=== PATIENT | male | born 1955 | race Caucasian/White ===

== ENCOUNTER 2017-03-31 13:10 | Inpatient (IN) | payer OTHER, MEDICARE ==
[~2017-03-31] VITALS: Ht 180.3 cm; Wt 136.1 kg
[~2017-03-31 13:10] MED LIST: ALPRAZOLAM0.5 M4 PO; AMOXICILLIN500 M3 PO; ASPIRIN81 M4 PO; BACTRIM DS TAB1 EACH PO; BUTALB-ACETAMI1 EACH PO; CABERGOLINE0.5 M2 PO; CARVEDILOL25 M1 PO; DICLOFENAC SODI75 M2 PO; ESCITALOPRAM OX10 MG PO; FUROSEMIDE20 M1 PO; KLOR-CON 1010 ME1 PO; LEVOTHYROXINE150 MCG PO; LIDODERM1 EACH TOP; LOSARTAN POTAS100 M1 PO; OMEPRAZOLE20 M2 PO; PERCOCET 5-3251 EACH PO; SUCRALFATE1 GM/10 M1 PO; VITAMIN D31000 UNI2 PO
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
--- NOTE | 2017-03-31 13:38 | NUR ---
PT MEDICATED PER EMAR WITH GOOD EFFECT. PT NOW ALERT AND ABLE TO COMMUNICATE. REPORTS HE DID TRY TO COMMIT SUICIDE THIS MORNING BY OVERDOSING ON 56 PILLS OF XANAX AND 20 PILLS OF LOSARTAN. PT DENIES ETOH CONSUMPTION. TOOK PILLS AROUND 1000 THIS MORNING.
--- NOTE | 2017-03-31 13:49 | NUR ---
PT TITRATED TO 5L 02 PER RESP VIA NC SATS 93-95%
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
[2017-03-31 14:13] LABS: ABSOLUTE BASOPHIL COUNT 0 /CUMM (0.0-0.2); ABSOLUTE EOSINOPHIL COUNT 0.2 /CUMM (0.0-0.7); ABSOLUTE LYMPH COUNT 1.5 /CUMM (1.2-3.4); ABSOLUTE MONOCYTE COUNT 0.7 /CUMM (0.10-0.60); BASOPHIL % 0.3 % (0.0-2.0); EOSINOPHIL % 3.6 % (0-5); GRANULOCYTE % 61.5 % (42.2-75.2); HEMATOCRIT 34.2 % (42-52); MEAN CORPUSCULAR HGB 28.6 PG (27.0-31.0); MEAN CORPUSCULAR HGB CONC 33.7 G/DL (33.0-37.0); MEAN CORPUSCULAR VOLUME 84.7 FL (80.0-94.0); PLATELET COUNT 203 /CUMM (130-400); RBC DISTRIBUTION WIDTH 19.4 % (11.5-14.5); RED BLOOD CELL CT 4.04 /CUMM (4.70-6.10); WHITE BLOOD CELL COUNT 6.4 /CUMM (4.8-10.8)
--- NOTE | 2017-03-31 14:20 | NUR ---
PORT CXR AT BEDSIDE.
--- NOTE | 2017-03-31 14:23 | NUR ---
PASTORAL CARE WITH SISTER AT BEDSIDE.
--- NOTE | 2017-03-31 14:24 | NUR ---
UNABLE TO OBTAIN MED LIST AT THIS TIME DUE TO PTS CONDITION.
--- NOTE | 2017-03-31 14:47 | NUR ---
SISTER ANTONIO CAN BE REACHED AT [phone]
--- NOTE | 2017-03-31 15:18 | RADIOLOGY REPORT ---
EXAMINATION: XR PORTABLE CHEST CLINICAL INFORMATION: Overdose with hypoxia. Presumptive diagnosis of aspiration. COMPARISON: Chest x-ray dated 11/03/[address] scan of the chest dated 10/02/2012. TECHNIQUE: Portable AP semierect view of the chest was obtained. FINDINGS: Evaluation is limited by motion artifact. The cardiomediastinal silhouette is enlarged, accentuated by the AP technique and patient positioning. Low lung volumes are seen with central vascular congestion. No overt edema. Diffuse haziness over the left chest is most likely related to technical factors. IMPRESSION: Limited assessment due to motion artifact, low lung volumes and patient rotation. Suspect low lung volumes with bibasilar subsegmental atelectasis.
--- NOTE | 2017-03-31 16:28 | NUR ---
PT ADMITTED UNDER ICU SERVICES. PENDING BED ASSIGNEMENT.
[2017-03-31] MEDS ORDERED: VENTOLIN HFA18 GM INH (17:03)
--- NOTE | 2017-03-31 17:08 | History & Physical ---
GEORGI PEACOCK,[facility] 03/31/17 5458: General Information and HPI MD Statement: I have seen and personally examined EMIL JOHN and documented this H&P. The patient is a 61 year old M who presented with a patient stated chief complaint of [altered mental status and difficulty breathing]. Source of Information: family, old records History of Present Illness: Patient is a 61-year-old gentleman with PMH significant for depression, anxiety, CHF (stage I diastolic dysfunction, EF 60%), pituitary tumor, viral myocarditis, hypothyroidism, hypertension, chronic venous insufficiency, recent admission to [facility] with upper GI bleed, who is BIBA after a suicidal attempt. History is obtained from the patient's mother and sister on the phone as he was somnolent and was unable to provide history. Patient was brought in to the hospital after ingesting about 60 tabs of Xanax and 20 tabs of Losartan. He had an argue with his mother since the night before and have been stating several times that he wants to end his life. According to the family, patient has a life long history of depression, not currently taking any medication for it; since his last discharge in October 2016 his symptoms have worsened and he frequently expresses that he wants to end his life. Patient is not working due to disability (since a diagnosis of pituitary tumor>25 years ago), lives with his mother and has been having financial difficulties, to the point that they most likely will lose their house. His argument with his mother was for the same reason after which he constantly told his mother that he is going to kill himself. Around noon time today he shouted from his bedroom that he has ingested the medications. His mother tried to convince him several times to come to the ED but he refused until he started to become short of breath with altered mentation. EMS brought the patient in the ED, he was given Romazicon after which he became more alert and reported taking Xanax 60 pills and Losartan 20 pills, also reported that he still considers suicide. Per the family, patient is not currently taking any medication for his depression; he only takes Xanax, Losartan, Cabergoline and Levothyroxine. He does not take Escitalopram, Furosemide, Coreg, and aspirin per the family. Aspirin was stopped since the previous admission due to lower GI bleed. Of note, his mother reported that the patient has been reporting black stools since a day prior ro admission as well, also reported vomiting and diarrhea for about a day prior to that. Did not mention any chest pain, palpitation but apparently has been dizzy on ambulation and weak for the most part. His mother also reports he has chronic coughs with sputum production, but denies recent fever, chills. Of note patient suffers from severe migraine headaches. patient smokes 0.5 pack/day , for 45 years. His family does not know if he takes illicit drugs or not. However sister admitted they suspected he is using Cocaine. Allergies/Medications Allergies: Coded Allergies: sulfamethoxazole (From BACTRIM) (Severe, RASH 11/03/16) trimethoprim (From BACTRIM) (Severe, RASH 11/03/16) codeine (Intermediate, VOMITING, FACE NUMBNESS 10/17/16) Home Med list Albuterol Sulfate (Ventolin Hfa) 90 MCG HFA.AER.AD 2 PUF INH AD PRN RESPIRATORY (Reported) Alprazolam 0.5 MG TABLET 1 TAB PO BIDP PRN ANXIETY (Reported) Aspirin (Aspirin*) 81 MG TAB.CHEW 1 TAB PO DAILY HEART HEALTH (Reported) Carvedilol 25 MG TABLET 1 TAB PO BID HEART (Reported) Cholecalciferol (Vitamin D3) 1,000 UNIT TABLET 1 TAB PO DAILY SUPPLEMENT ( Reported) Escitalopram Oxalate 10 MG TABLET 1 TAB PO DAILY DEPRESSION (Reported) Furosemide 20 MG TABLET 1 TAB PO DAILY WATER PILL (Reported) Levothyroxine Sodium 150 MCG TABLET 1 TAB PO DAILY AC THYROID (Reported) Losartan Potassium 100 MG TABLET 1 TAB PO DAILY HEART (Reported) Past History Travel History Traveled to [place] past 21 day No Medical History Neurological: migraine, multiple sclerosis EENT: NONE Cardiovascular: CHF, chronic venous insuff, hypertension, myocardial infarction, VIRAL PERICARDITIS Respiratory: NONE Gastrointestinal: NONE Hepatic: NONE Renal: borderline GFR Musculoskeletal: degen joint disease, falls, spinal stenosis Psychiatric: anxiety, insomnia, mood disorder Endocrine: hypothyroidism, obesity, vitamin D deficiency, pituitary tumor Blood Disorders: NONE Cancer(s): pituitary tumor- txd with Cabergoline; hx skull fibromas 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 MOTHER (MS). Age 84. SISTER (MS). Psychosocial History Who Do You Live With? parent (mom) Services at Home: None Primary Language: Zambian Living Will? no Power of Concrete Pump Operator/HCP? no Functional Ability ADLs Independent: dressing, eating, toileting, bathing. Ambulation: independent IADLs Independent: shopping, housework, finances, food prep, telephone, transportation , medication admin. Review of Systems Review of Systems Constitutional: Reports: see HPI. Exam & Diagnostic Data Last 24 Hrs of Vital Signs/I&O Vital Signs Date Time Temp Pulse Resp B/P B/P Pulse O2 O2 Flow FiO2 Mean Ox Delivery Rate 03/31 1805 95.8 56 20 120/62 96 Nasal 5.0L Cannula 05/06 1734 95.9 58 20 128/76 93 Nasal 5.0L Cannula 05/06 1632 96.8 56 20 131/74 94 Nasal 5.0L Cannula 05/06 1453 95.0 55 16 124/64 91 Nasal 5.0L Cannula 05/06 1443 58 16 125/64 92 Nasal 5.0L Cannula 05/06 1433 60 16 128/67 92 Nasal 5.0L Cannula 05/06 1423 95.0 59 16 130/68 92 Nasal 5.0L Cannula 05/06 1413 62 16 130/64 92 Nasal 5.0L Cannula 05/06 1403 62 16 124/62 93 Nasal 5.0L Cannula 05/06 1400 96 Non 100% ReBreather 05/06 1353 61 16 132/66 93 Nasal 5.0L Cannula 05/06 1348 59 16 144/65 95 Nasal 5.0L Cannula 05/06 1337 62 18 139/65 96 Non 100% ReBreather 05/06 1333 60 20 107/63 96 Non 100% ReBreather 05/06 1324 96.4 59 12 134/63 94 Non 100% ReBreather 05/06 1314 59 12 107/61 96 Non 10L ReBreather Intake & Output / 1600 05/06 0800 05/06 0000 Intake Total 1999 Output Total Balance 2000 Intake, IV 2000 Patient 131.542 kg Weight Physical Exam General Appearance Mild Distress, not alert, not oriented Skin venous ulcer stasis ulcer on the lower legs most prominent on the left side Skin Temp/Moisture Exam: Warm/Dry Sepsis Skin Exam (color): Normal for Ethnicity HEENT Atraumatic, Mucous Membr. moist/pink, pale conjunctiva on both sides Neck Supple, No JVD Cardiovascular Regular Rate, Normal S1, Normal S2, No Murmurs Lungs diffuse rhonchi and coarse crackles on both sides Abdomen Normal Bowel Sounds, Soft, No Tenderness Neurological Normal Speech, Normal Tone Extremities 3+ pitting edema on the left lower extremity, also there is hyperpigmentations and venous stasis skin changes on the left lower leg. Vascular Normal Pulses, Pulses Symmetrical Last 24 Hrs of Labs/[place]: Laboratory Tests 03/31/17 1330: Anion Gap 10, Estimated GFR 57 L, BUN/Creatinine Ratio 16.2, Glucose 107 H, Calcium 9.7, Total Bilirubin 0.5, AST 20, ALT 39, Alkaline Phosphatase 73, Troponin I < 0.01, Total Protein 6.8, Albumin 3.6, Globulin 3.2, Albumin/ Globulin Ratio 1.1, CBC w Diff NO MAN DIFF REQ, RBC 4.04 L, MCV 84.7, MCH 28.6, RDW 19.4 H, MPV 8.0, Gran % 61.5, Lymphocytes % 23.5, Monocytes % 11.1 H, Eosinophils % 3.6, Basophils % 0.3, Absolute Granulocytes 4.0, Absolute Lymphocytes 1.5, Absolute Monocytes 0.7 H, Absolute Eosinophils 0.2, Absolute Basophils 0, PUBS MCHC 33.7, Salicylates < 1.0, Acetaminophen < 10.0 L, Serum Alcohol < 10.0 03/31/17 1325: Urine Opiates Screen < 100.00, Methadone Screen < 40, Barbiturate Screen 745 H, Ur Phencyclidine Scrn < 6.00, Amphetamines Screen < 100, U Benzodiazepines Scrn > 800 H, Urine Cocaine Screen > 1000 H, Urine Cannabis Screen < 5.00, Urine Color YEL, Urine Clarity CLEAR, Urine pH 6.0, Ur Specific [place] 1.020, Urine Protein NEG, Urine Ketones NEG, Urine Nitrite NEG, Urine Bilirubin NEG, Urine Urobilinogen 0.2, Ur Leukocyte Esterase NEG, Ur Microscopic SEDIMENT EXAMINED, Urine RBC 1-3, Urine WBC RARE, Ur Epithelial Cells RARE, Urine Hemoglobin TRACE- INTACT H, Urine Glucose NEG Microbiology 03/31 1325 URINE ROUT: Urine Culture - RECD Assessment/Plan Assessment: Patient is a 61 year old male with PMH significant for depression, anxiety, CHF (stage I diastolic dysfunction, EF 60%), pituitary tumor, viral myocarditis, hypothyroidism, hypertension, chronic venous insufficiency, recent admission to [facility] with upper GI bleed, who is BIBA after a suicidal attempt and overdose with Xanax and losartan. Utox was positive for Benzo, Barbiturates, Cocaine. Poison control was also contacted for recommendations. 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 2-No evidence of hypoglycemia. Serum glucose: 107 3-Acute hypoxic respiratory failure: ABG showing hypoxemia. Initially required nonrebreather mask, currently on 4L per NC 4-Hypothermia:Patient was hypothermic to 95.0 on arrival, used blankets that increased Temp to 97.4 * Monitor airway and SO2, O2 suppl to keep SO2>92% * Capnography if evidence of hyperventilation * Consider intubation if worsening hypoxemia * Continuous cardiac monitoring * Monitor for symptoms of withdrawal: tremors, anxiety, perceptual disturbances, dysphoria, psychosis, and seizures. Treat withdrawal with Diazepam. * Frequent neurochecks * Fingersticks for risk of hypoglycemia Losartan overdose BP 107/61 on admission, currently elevated to systolic 120s-150s * Protect th airway, aspiration precautions, watch for signs of angioedema in ARB overdose * monitor BP for hypotension * watch for hyperkalemia * watch for acute renal function * continue IV fluid (NS) at 75 cc/hour * repeat BEP in am Suicidal ideation and suicidal attempt History of depression/anxiety/polysubstance abuse Utox (+) for cocaine, barbiturates and Benzodiazepines * not on medication (per family has not been taking escitalopram) * recent worsening of symptoms precipitated by financial problems * does not follow with psych * has active suicidal ideation * will need 1:1 sitter and psych eval in am History of GI bleed and anemia Was admitted at [facility] in Dec with GIB Reported dark stools a day before admission H/H shows anemia, stable compared to baseline * will monitor CBC * Will Guaiac stool * IV protonix * Add Iron studies and VitB12, folate to lab work History of heart failure and HTN Last Echo on 10/17/[address] Hassan: Normal left ventricular wall thickness and normal LV EF at > 60%. Stage 1 diastolic dysfunction. Mild left atrial dilatation. Trace mitral regurgitation. Of note, patient sees Dr. Hassan outpatient. On this admission: EKG unremarkable and troponin negative x0.01, no report of chest pain. * consider restarting furosemide (prescribed but the patient is not taking it according to the mother) * BP borderline low after ingestion of losartan * consider restarting Losartan and Carvedilol if BP increases * consider cardiology consult Left Lower extremity edema Pitting edema with chronic venous stasis skin changes present Patient has sedentary life style * doppler US of LE to rule out DVT Chronic cough with history of COPD Acute hypoxemic respiratory failure with significant coughing with large amount of phlegm, coarse crackles and rhonchi in the exam. ABG: Hypoxemia. * will suction the airway, monitor SO2 with pulse oxymetry * Consider Chest CT scan to better evaluate lung parenchyma * TRC/Nebs * Consider antibiotics if spikes fever * Sputum culture * Blood culture History of pituitary tumor & hypothyroidism * Continue Cabergoline * TFT * continue levothyroxine at 0.15 mg daily * Consider Endo consult Smoking * Nicotine patch due to smoking NPO due to altered mental status DVT px with Heparin SC FC As Ranked By This Provider Problem List: 1. Depression with suicidal ideation 2. Overdose of benzodiazepine Qualifiers Encounter type: initial encounter Injury intent: intentional self-harm Qualified Code: T42.4X2A - Poisoning by benzodiazepines, intentional self-harm, initial encounter 3. Overdose of drug Qualifiers Encounter type: initial encounter Injury intent: intentional self-harm Qualified Code: T50.902A - Poisoning by unspecified drugs, medicaments and biological substances, intentional self-harm, initial encounter 4. Anemia 5. Melena 6. GI bleed 7. Venous stasis ulcer 8. Hypertension 9. Hypothyroid 10. CHF (congestive heart failure) 11. SUZI (acute kidney injury) Core Measures/Miscellaneous Acute Coronary Syndrome ACS Diagnosis: No Cerebrovascular Accident CVA/TIA Diagnosis: No Congestive Heart Failure CHF Diagnosis: No Venous Thromboembolism VTE Risk Factors: Acute medical illness, Age > 40 No [facility] VTE prophylaxis d/t: No contraindications No VTE Pharm Prophylaxis d/t: VTE low risk, No contraindications VTE Diagnosis: No VTE Type: NONE VTE Confirmed by (Test): NONE Severe Sepsis Severe Sepsis Present: No Septic Shock Septic Shock Present: No Miscellaneous Documentation Attending Case Discussed With: RUSTY ALLEN MD Primary Care Physician: DANIEL AGUILERA MD Patient sees these Specialists Cardiology: Dr. Hassan Level of Patient Care: Critical Care ([facility]) DELMER ZAPATA 03/31/17 1834: Resident Review Statement Resident Statement: discussed with family Other Findings: Patient is a 60-year-old male with past medical history of CHF(stage I diastolic dysfunction, EF 60%), pituitary tumor, viral myocarditis, hypothyroidism, hypertension, chronic venous insufficiency, upper GI bleed was brought by EMS after the patient overdosed himself xanax and losartan. Per family, patient was involved in an earlier argument with her mother this morning. At around noon, the mother noticed that patient was very unresponsive in his bedroom and he had overdosed him self on 30 pills of xanax and losartan. Per family patient has been very depressed recently and felt that he has had enough of life. In ER, patient was given one dose of fumazenil after which he became a little responsive to sternal rub. He was following commands in ER like squeezing fingers, wiggling toes. He had a sitter beside him in the room and was coughing up on secretions. Patient was hypothermic in ER 95.8 rectal temp, saturating 96% on 5 L NC, RR 20, HR 56-61. CXR was Limited assessment due to motion artifact, low lung volumes and patient rotation. Suspect low lung volumes with bibasilar subsegmental atelectasis. Assessment and plan Poison control was contacted at [phone], they recommend to hold off on further fumazenil as he could have ingested multiple medications and there could be a possibility of medication interaction with it. They recommend to monitor the patient for hypotension, tachycardia, hypothermia, asymptomatic hypoglycemia and angioedema. Will provide supportive care to the patient at this time with NS @ 75 cc/hr to prevent dehydration and warm blankets for hypothermia. If hypothermia is not controlled, will proceed with bearhugger. ABG ordered at 4.55pm is still pending. Will follow up. Will repeat ICU bundle and CBC this evening ( 7 pm) and in am. DVT ppx SC heprin Patient came after a suicide attempt, he will be kept Full code. RUSTY ALLEN MD 03/31/172004: Attending MD Review Statement Attending Statement Attending MD Statement: examined this patient, discuss w/resident/PA/MEETING/EVENT PLANNER, agreed w/resident/PA/MEETING/EVENT PLANNER, reviewed EMR data (avail) Attending Assessment/Plan: 61M PMH depression, anxiety, CHF (stage I diastolic dysfunction, EF 60%), pituitary tumor, viral myocarditis, hypothyroidism, hypertension, chronic venous insufficiency admitted with intentional suicide attempt with Xanax overdose. Patient took 60 pills, unknown dose, with intent for self-harm. He arrives somnolent. Given Flumazenil in ED and woke up, but fell back asleep some time later. Currently somnolent but arousable. Hemodynamically stable and protecting airway. No further history can be obtained due to somnolence. 1. Benzodiazepine overdose 2. Suicide attempt 3. Somnolence 4. Hypothermia Plan - Admit to ICU - Poison control contat, will follow recommendations - Blankets and possible bear-hugger for hypothermia - Monitor BP, respirations, HR - If evidence of respiratory collapse, will require intubation - Neuro checks - Psychiatry consult - Monitor for eventual signs of benzo withdrawal - DVT PPx - Elevate head of bed
--- NOTE | 2017-03-31 17:11 | NUR ---
MONITORING FOR TACHYCARDIA, HYPOTENSION AND HYPOGLYCEMIA PER POISON CONTROL.
--- NOTE | 2017-03-31 17:41 | NUR ---
IV NS INFUSING.
--- NOTE | 2017-03-31 18:54 | NUR ---
LABS OBTAINED AND SENT.
--- NOTE | 2017-03-31 18:56 | NUR ---
PT TO ROOM 109-01
[2017-03-31 18:59] LABS: ABSOLUTE BASOPHIL COUNT 0 /CUMM (0.0-0.2); ABSOLUTE EOSINOPHIL COUNT 0.2 /CUMM (0.0-0.7); ABSOLUTE GRANULOCYTE CT 6.3 /CUMM (1.4-6.5); ABSOLUTE LYMPH COUNT 1.1 /CUMM (1.2-3.4); ABSOLUTE MONOCYTE COUNT 1.1 /CUMM (0.10-0.60); BASOPHIL % 0.3 % (0.0-2.0); EOSINOPHIL % 1.8 % (0-5); GRANULOCYTE % 72.9 % (42.2-75.2); HEMATOCRIT 33.8 % (42-52); MEAN CORPUSCULAR HGB 27.9 PG (27.0-31.0); MEAN CORPUSCULAR HGB CONC 32.6 G/DL (33.0-37.0); MEAN CORPUSCULAR VOLUME 85.6 FL (80.0-94.0); MEAN PLATELET VOLUME 7.6 FL (7.4-10.4); PLATELET COUNT 214 /CUMM (130-400); RBC DISTRIBUTION WIDTH 19.5 % (11.5-14.5); RED BLOOD CELL CT 3.95 /CUMM (4.70-6.10); WHITE BLOOD CELL COUNT 8.7 /CUMM (4.8-10.8)
--- NOTE | 2017-03-31 19:02 | NUR ---
PENDING CALL IN RETURN FROM ICU NURSE.
--- NOTE | 2017-03-31 20:10 | Admission Certification ---
Admission Certification Certification Statement - As attending physician, I certify that at the time of - admission, based on clinical presentation, severity of - symptoms, need for further diagnostic testing and - therapeutic interventions, and risk of adverse outcomes - without in-hospital treatment, in my clinical assessment, - this patient requires an acute hospital stay for a minimum - of two nights or longer. I have also considered psychsocial - factors such as support system, advanced age, financial - issues, cognitive issues, and failed out-patient treatments, - past re-admission history, safety of patient, and lack of - compliance as applicable. Specific rationale supporting this admission is: Intentional benzodiazepine overdose
--- NOTE | 2017-03-31 20:32 | NUR ---
REPORT GIVEN TO SOLDERER TORCH.
[2017-03-31 22:00] VITALS: BP 152/72
[2017-04-01] VITALS (10 sets, daily range): BP systolic 98–160; BP diastolic 50–83
--- NOTE | 2017-04-01 | NUR ---
PT RECEIVED FROM ER AT 2100, RESPONDS ONLY TO NOXIOUS STIMULI BY GROANING LOUDLY AND DEUTSCH. NASAL TRUMPET INSERTED BY RT SPUTUM C/S SENT.NASAL 02 AT 4L O2 SAT 92-96% DR SENIOR AWARE OF CONDITION, TEMP TO 97.8 AFTER APPLYING BLANKETS AND COVERING TOP OF HEAD. HAS MULTIBLE BROWN SPOTS ON BODY THROUGHOUT BODY NO OPEN AREAS SEEN. HAS EXCESSIVE UPPER AIRWAY CONGESTION DOES HAVE STRONG COUGH ABLE TO CLEAR OWN AIRWAY. SITTER AT BEDSIDE TO MAINTAIN SAFETY.
--- NOTE | 2017-04-01 04:00 | NUR ---
PT MORE AWAKE KNOWS WHERE HE IS C/O "FOAMING AT THE MOUTH" MOUTH CARE GIVEN. COMPLETE BED BATH GIVEN PT IS RESISTANT TO CARE BUT IS LETHARGIC AND QUICKLY FELL BACK TO SLEEP. DISCUSSED PO MEDS WITH DR SENIOR CHANGED TO IV.
[2017-04-01 05:08] LABS: ABSOLUTE BASOPHIL COUNT 0 /CUMM (0.0-0.2); ABSOLUTE EOSINOPHIL COUNT 0.1 /CUMM (0.0-0.7); ABSOLUTE GRANULOCYTE CT 6.8 /CUMM (1.4-6.5); ABSOLUTE LYMPH COUNT 1.3 /CUMM (1.2-3.4); BASOPHIL % 0.2 % (0.0-2.0); EOSINOPHIL % 1.5 % (0-5); GRANULOCYTE % 72.7 % (42.2-75.2); HEMATOCRIT 32.8 % (42-52); MEAN CORPUSCULAR HGB 28.5 PG (27.0-31.0); MEAN CORPUSCULAR HGB CONC 33.4 G/DL (33.0-37.0); MEAN CORPUSCULAR VOLUME 85.2 FL (80.0-94.0); MEAN PLATELET VOLUME 7.6 FL (7.4-10.4); PLATELET COUNT 193 /CUMM (130-400); RBC DISTRIBUTION WIDTH 19.4 % (11.5-14.5); RED BLOOD CELL CT 3.84 /CUMM (4.70-6.10); WHITE BLOOD CELL COUNT 9.3 /CUMM (4.8-10.8)
--- NOTE | 2017-04-01 08:34 | PN- Resident CRCU ---
FLOYD PEACOCK,[facility] 04/01/17 0834: Subjective HPI/CRCU Issues: Mr Fletcher was seen and examined this morning. He is resting comfortably in bed. Patient appears very tearful and upset during the time of our clinical encounter and offers a lot of remorse for his actions. He is alert and oriented nausea, vomiting. He denies any visual or auditory hallucinations. 24 Hour Events: No Events Reported Objective Vital Signs & I&O Last 8 Hrs of Vitals and I&O: Intake & Output 04/01 1600 Intake Total 750 Output Total 550 Balance 200 Intake, IV 600 Intake, Oral 150 Output, Urine 550 Exam General Appearance: well developed/nourished, no apparent distress, alert, awake Respiratory: normal breath sounds, chest non-tender, no respiratory distress Cardiovascular: regular rate/rhythm Gastrointestinal: normal bowel sounds, soft, non-tender, no organomegaly, distention Extremities: normal inspection, normal capillary refill, normal range of motion, no edema Cranial Nerves: normal hearing, normal speech, PERRL Current Medications: Current Medications Sig/Edy Start time Last Medication Dose Route Stop Time Status Admin Albuterol Sulfate 2 PUF BID PRN 03/31 2200 AC INH Heparin Sodium 5,000 UNIT Q8 03/31 2200 AC 04/01 (Porcine) SC 1416 Levothyroxine Sodium 75 MCG DAILY 04/01 1000 AC 04/01 IV 1140 Levothyroxine Sodium 0.15 MG DAILY AC 04/01 0700 CAN PO Nicotine 14 MG DAILY 04/01 1000 AC 04/01 TOP 1141 Sodium Chloride 1,000 ML Q13H 03/31 1730 AC 04/01 IV 0636 Impression/Plan Impression/Problem List Impression: Patient is a 61 year old male with PMH significant for depression, anxiety, CHF (stage I diastolic dysfunction, EF 60%), pituitary tumor, viral myocarditis, hypothyroidism, hypertension, chronic venous insufficiency, recent admission to [facility] with upper GI bleed, who is BIBA after a suicidal attempt and overdose with Xanax and losartan. Utox was positive for Benzo, Barbiturates, Cocaine. Poison control was also contacted for recommendations. Problem list and plan: Benzodiazepine poisoning * Continue to Monitor airway and SO2, O2 suppl to keep SO2>92% * Capnography if evidence of hyperventilation * Consider intubation if worsening hypoxemia * Continuous cardiac monitoring * Monitor for symptoms of withdrawal: tremors, anxiety, perceptual disturbances, dysphoria, psychosis, and seizures. * Frequent neurochecks * [facility] protocol for acute withdrawal. Losartan overdose BP 107/61 on admission, currently elevated to systolic 122/62 * Watch for signs of angioedema in ARB overdose * monitor BP for hypotension * watch for hyperkalemia, last K: 4.2. repeat in AM * watch for acute renal function Acute kidney injury * BUN/creatinine 24 and 2.1 respectively. * Continue IV hydration. * Repeat BEP in a.m. Suicidal ideation and suicidal attempt History of depression/anxiety/polysubstance abuse Utox (+) for cocaine, barbiturates and Benzodiazepines * not on medication (per family has not been taking escitalopram) * recent worsening of symptoms precipitated by financial problems * does not follow with psych * has active suicidal ideation * Continue 1:1 sitter * Psychiatry evaluation obtained. History of GI bleed and anemia Was admitted at [facility] in Dec with GIB Reported dark stools a day before admission H/H shows anemia, stable compared to baseline * will monitor CBC * Will Guaiac stool * IV protonix * Add Iron studies and VitB12, folate to lab work History of heart failure and HTN Last Echo on 10/17/[address] Hassan: Normal left ventricular wall thickness and normal LV EF at > 60%. Stage 1 diastolic dysfunction. Mild left atrial dilatation. Trace mitral regurgitation. Of note, patient sees Dr. Hassan outpatient. On this admission: EKG unremarkable and troponin negative x0.01, no report of chest pain. * consider restarting furosemide (prescribed but the patient is not taking it according to the mother) * consider cardiology consult Chronic cough with history of COPD * will suction the airway, monitor SO2 with pulse oxymetry * TRC/Nebs * Consider antibiotics if spikes fever, afebrile today. * Sputum culture * Blood culture History of pituitary tumor & hypothyroidism * TFT * continue levothyroxine at 0.75 mcg daily * Consider Endo consult * Confirm Home Meds in AM Smoking * Nicotine patch due to smoking Regular Diet. DVT px with Heparin SC FC Problem List: 1. Depression with suicidal ideation 2. Overdose of drug 3. Overdose of benzodiazepine Pain Ratin Tomorrow's Labs & Rationales: Icu Bundle Plan DVT/Prophylaxis: RUSTY Luna MD 04/01/17 1357: Attending MD Review Statement Attending Sign Off Attending Cosign Statement: I have: examined this patient, reviewed [facility] EMR data, discussd w/resident/PA/ ADMINISTRATIVE RESOURCES ASSOCIATE, agreed w/resident/PA/ADMINISTRATIVE RESOURCES ASSOCIATE. Other Findings: 61M PMH depression, anxiety, CHF (stage I diastolic dysfunction, EF 60%), pituitary tumor, viral myocarditis, hypothyroidism, hypertension, chronic venous insufficiency admitted with intentional suicide attempt with Xanax overdose. Patient took 60 pills, unknown dose, with intent for self-harm. He arrives somnolent. Given Flumazenil in ED and woke up, but fell back asleep some time later. Currently somnolent but arousable. Hemodynamically stable and protecting airway. No further history can be obtained due to somnolence. 1. Benzodiazepine overdose 2. Suicide attempt 3. Somnolence 4. Hypothermia Plan - May downgrade to general medicine floor - Poison control contat, will follow recommendations - Monitor BP, respirations, HR - If evidence of respiratory collapse, will require intubation - Neuro checks - Psychiatry consult - Monitor for eventual signs of benzo withdrawal - DVT PPx - Elevate head of bed
--- NOTE | 2017-04-01 09:03 | NUR ---
0630 LATE ENTRY. PT WOKE INITIALLY CONFUSED TO PLACE AND REASON FOR HOSPITALIZATION THEN SPONTANEOUSLY REMEMBERED WHY HE IS IN HOSPITAL, WEEPING ASKING WHY HE DIDN'T . VERY EMOTIONAL SAYING HE HAS NO REASON TO LIVE AND HES MAD AT HIS FAMILY FOR CALLING AMBULENCE. sTATES HE TOOK ENOUGH BP MEDICINE TO KILL HIMSELF AND IF AT FIRST YOU DONT SUCCEED, TRY AGAIN. NO AGGRESSIVE BEHAVIOR DISPLAYED IS COOPERATING WITH CARE (FOR THE MOMENT HE STATES) SITTER AT BEDSIDE DOES NOT ATTEMPT TO GET OOB OR PULL AT TUBINGS AT THIS TIME.
--- NOTE | 2017-04-01 10:22 | Cons- Psychiatry ---
Psychiatric Consult Date of Consult: 03/31/17 Reason for Consult: "xanax overdose" History of Present Illness: Pt was BIBA unresponsive after mother and sister called 911 in the setting of several statements pt made about killing himself during some interpersonal discord driven by worsening fiancial stressors. Pt now awake and alert though very drowsy. On interview, he noted that he lost his job five months ago. As the bill started to pill up and go unpaid, pt was increasingly hopeless about the situation. He notes that they have not been able to pay the mortgage, the electric bill (to be shut off ?today), and have not paid any of the credit cards in five months. He notes that he had been increasingly depressed but was not considering suicide. The thought that killing himself could be "a way out" of this situation came to him one day ago in the setting of worsening depression, conflict with family, and crack cocaine use. He took "a whole bottle of losartan and a whole bottle of xanax" with the intent to . Upon awakening and finding that he is not he said he was "very disappointed." He still currently wishes to be . In addition, he noted, "I want to try again; I want another chance to do it," referring to suicide once again. 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 In addition, the "secret shame" of smoking crack almost daily for the past 30 years has been weighing heavily on his mind. He smoked crack just prior to overdose. His mother relies on him for care and support as she has MS. Pt denies any manic , psychotic, or trauma-related sx. Denies hx of emotional, physical or sexual abuse. Noted supports as mother and sister only. Pt has been taking xanax almost daily for decades prescribed by primary care provider. Denies alcohol use. Smokes 1/2 ppd. + crack cocaine x 30yrs, denies other drugs, deneies IVDU. Pt was previously seen by Psychiatrist years ago. Was on depakote and xanax. Allergies: Coded Allergies: sulfamethoxazole (From BACTRIM) (Severe, RASH 11/03/16) trimethoprim (From BACTRIM) (Severe, RASH 11/03/16) codeine (Intermediate, VOMITING, FACE NUMBNESS 10/17/16) Current Medications: Current Medications Sig/Edy Start time Last Medication Dose Route Stop Time Status Admin Albuterol Sulfate 2 PUF BID PRN 03/31 2200 AC INH Flumazenil 0 .STK-MED ONE 03/31 1335 DC IV Flumazenil 0.25 MG ONCE ONE 03/31 1330 DC 03/31 IV 03/31 1331 1338 Heparin Sodium 5,000 UNIT Q8 03/31 2200 AC 04/01 (Porcine) SC 0635 Levothyroxine Sodium 75 MCG DAILY 04/01 1000 AC IV Levothyroxine Sodium 0.15 MG DAILY AC 04/01 0700 CAN PO Nicotine 14 MG DAILY 04/01 1000 AC TOP Patient Medication 1 UNIT ONE NR 03/31 1815 DC Teaching ED 03/31 1830 Sodium Chloride 1,000 ML Q13H 03/31 1730 AC 04/01 IV 0636 Past History Past Medical History Neurological: migraine, multiple sclerosis EENT: NONE Cardiovascular: CHF, chronic venous insuff, hypertension, myocardial infarction, VIRAL PERICARDITIS Respiratory: NONE Gastrointestinal: NONE Hepatic: NONE Renal: borderline GFR Musculoskeletal: degen joint disease, falls, spinal stenosis Psychiatric: anxiety, insomnia, mood disorder Endocrine: hypothyroidism, obesity, vitamin D deficiency, pituitary tumor Blood Disorders: NONE Cancer(s): pituitary tumor- txd with Cabergoline; hx skull fibromas CONVENTIONS RESERVATIONIST/Reproductive: NONE Past Surgical History Surgical History: BENIGN BREAST TUMOR REMOVAL B/L, PILONIDAL CYST REMOVAL, REMOVAL OF SKULL FIBROMAS VASC PROCEDURE LLE Psychosocial History Strengths/Capabilities: able to communicate Psychiatric Treatment History Psych Treatment Psychiatric Treatment Yes Inpatient Treatment No Outpatient Treatment Yes (years ago) Location of Treatment [place] Reason for Treatment depression, "I didn't feel right" Dates of Treatment years ago Response to Treatment good Diagnosis: Major Depressive Disorder R/O Substance-induced mood disorder Cocaine (crack) use disorder Nicotine Dependence Risk Factors: access to lethal means, chronic/serious med cond., high anxiety/ distress, substance abuse, isolate/no social support, poor impulse control, lack of outcome concern, male, limited support Substance Use/Abuse History Drug Use/Abuse Substances Used/Abused Yes Substance Used/Abused Crack Cocaine First Use 30 years ago Last Used last day How much used/taken 100-200$/d x30 years (pt worked extra jobs to support this) How often almost daily For how long 30 years Route of use INH Substance Abuse Treatment Substance Abuse Treatment Past Substance Abuse [place] No Assessment/Plan Mental Status Orientation: Person, Place, Situation, though extremely drowsy Affect: Anxious, Hopeless, Labile, Sad Speech: Loud, Mumbled Neuro-vegetative: Anhedonia, Appetite Increased, Concentration Poor, Energy Decreased, Helpless, Loss of Interest, Sleep Disturbance Mental Status Exam: Appears younger than stated age. Cooperative behavior, good, appropriate eye contact. Loud mumbled speech at times, nl rate, non-pressured, and nl prosody. + psychomotor agitation when awake but intermittently falling asleep. Mood I want to Affect very sad, hopeless, anxious, irritable, depressed, constricted, appropriate, slightly liable. Linear and goal directed thought process. +++SI continues "wants another chance to do it," no HI. Does not appear to be responding to internal stimuli. Denies AVHs, paranoia, or delusions. I/J: limited Lab Results: Laboratory Tests 04/01 Blood Gas pH (7.35 - 7.45 PH) 7.35 pCO2 (35 - 45 TORR) 40 pO2 (80 - 100 TORR) 62 L HCO3 (21 - 28 MEQ/L) 22 ABG O2 Sat (Measured) (>96.0 %) 88.0 L P-50 (Temp Corrected) Y Carboxyhemoglobin (1.5 - 5.0 %) 3.1 O2 Concentration % 3L Temperature (97.0 - 100.0 FARH) 95.8 L O2 Delivery Method NC Chemistry Sodium (137 - 145 mmol/L) 136 L Potassium (3.5 - 5.1 mmol/L) 4.2 Chloride (98 - 107 mmol/L) 105 Carbon Dioxide (22 - 30 mmol/L) 23 Anion Gap (5 - 16) 8 BUN (9 - 20 mg/dL) 24 H Creatinine (0.7 - 1.2 mg/dL) 2.1 H Estimated GFR (>60 ml/min) 32 L BUN/Creatinine Ratio (7 - 25 %) 11.4 Hematology CBC w Diff NO MAN DIFF REQ WBC (4.8 - 10.8 /CUMM) 9.3 RBC (4.70 - 6.10 /CUMM) 3.84 L Hgb (14.0 - 18.0 G/DL) 10.9 L Hct (42 - 52 %) 32.8 L MCV (80.0 - 94.0 FL) 85.2 MCH (27.0 - 31.0 PG) 28.5 RDW (11.5 - 14.5 %) 19.4 H Plt Count (130 - 400 /CUMM) 193 MPV (7.4 - 10.4 FL) 7.6 Gran % (42.2 - 75.2 %) 72.7 Lymphocytes % (20.5 - 51.1 %) 14.4 L Monocytes % (1.7 - 9.3 %) 11.2 H Eosinophils % (0 - 5 %) 1.5 Basophils % (0.0 - 2.0 %) 0.2 Absolute Granulocytes (1.4 - 6.5 /CUMM) 6.8 H Absolute Lymphocytes (1.2 - 3.4 /CUMM) 1.3 Absolute Monocytes (0.10 - 0.60 /CUMM) 1.0 H Absolute Eosinophils (0.0 - 0.7 /CUMM) 0.1 Absolute Basophils (0.0 - 0.2 /CUMM) 0 PUBS MCHC (33.0 - 37.0 G/DL) 33.4 Miscellaneous Phlebotomy Draw Site RIGHT RADIAL 03/31 03/31 1850 1330 Chemistry Sodium (137 - 145 mmol/L) 138 138 Potassium (3.5 - 5.1 mmol/L) 4.7 4.5 Chloride (98 - 107 mmol/L) 104 103 Carbon Dioxide (22 - 30 mmol/L) 25 25 Anion Gap (5 - 16) 9 10 BUN (9 - 20 mg/dL) 23 H 21 H Creatinine (0.7 - 1.2 mg/dL) 1.6 H 1.3 H Estimated GFR (>60 ml/min) 44 L 57 L BUN/Creatinine Ratio (7 - 25 %) 16.2 Glucose (65 - 99 mg/dL) 101 H 107 H Calcium (8.4 - 10.2 mg/dL) 9.0 9.7 Phosphorus (2.5 - 4.5 mg/dL) 4.8 H Magnesium (1.6 - 2.3 mg/dL) 1.8 Total Bilirubin (0.2 - 1.3 mg/dL) 0.5 0.5 AST (17 - 59 U/L) 19 20 ALT (21 - 72 U/L) 42 39 Alkaline Phosphatase (< 127 U/L) 73 Troponin I (<0.11 ng/ml) < 0.01 Total Protein (6.3 - 8.2 g/dL) 6.8 Albumin (3.5 - 5.0 g/dL) 3.3 L 3.6 Globulin (1.9 - 4.2 gm/dL) 3.2 Albumin/Globulin Ratio (1.1 - 2.2 %) 1.1 Hematology CBC w Diff NO MAN DIFF REQ NO MAN DIFF REQ WBC (4.8 - 10.8 /CUMM) 8.7 6.4 RBC (4.70 - 6.10 /CUMM) 3.95 L 4.04 L Hgb (14.0 - 18.0 G/DL) 11.0 L 11.6 L Hct (42 - 52 %) 33.8 L 34.2 L MCV (80.0 - 94.0 FL) 85.6 84.7 MCH (27.0 - 31.0 PG) 27.9 28.6 RDW (11.5 - 14.5 %) 19.5 H 19.4 H Plt Count (130 - 400 /CUMM) 214 203 MPV (7.4 - 10.4 FL) 7.6 8.0 Gran % (42.2 - 75.2 %) 72.9 61.5 Lymphocytes % (20.5 - 51.1 %) 12.7 L 23.5 Monocytes % (1.7 - 9.3 %) 12.3 H 11.1 H Eosinophils % (0 - 5 %) 1.8 3.6 Basophils % (0.0 - 2.0 %) 0.3 0.3 Absolute Granulocytes (1.4 - 6.5 /CUMM) 6.3 4.0 Absolute Lymphocytes (1.2 - 3.4 /CUMM) 1.1 L 1.5 Absolute Monocytes (0.10 - 0.60 /CUMM) 1.1 H 0.7 H Absolute Eosinophils (0.0 - 0.7 /CUMM) 0.2 0.2 Absolute Basophils (0.0 - 0.2 /CUMM) 0 0 PUBS MCHC (33.0 - 37.0 G/DL) 32.6 L 33.7 Toxicology Salicylates (0 - 20.0 mg/dL) < 1.0 Acetaminophen (10.0 - 30.0 ug/mL) < 10.0 L Serum Alcohol (<10 MG/DL) < 10.0 05 1325 Toxicology Urine Opiates Screen (>2000 NG/ML) < 100.00 Methadone Screen (>300 NG/ML) < 40 Barbiturate Screen (>200 NG/ML) 745 H Ur Phencyclidine Scrn (>25 NG/ML) < 6.00 Amphetamines Screen (>1000 NG/ML) < 100 U Benzodiazepines Scrn (>200 NG/ML) > 800 H Urine Cocaine Screen (>300 NG/ML) > 1000 H Urine Cannabis Screen (>50 NG/ML) < 5.00 Urines Urine Color (YEL,AMB,STR) YEL Urine Clarity (CLEAR) CLEAR Urine pH (5.0 - 8.0) 6.0 Ur Specific [place] (1.001 - 1.035) 1.020 Urine Protein (NEG,<30 MG/DL) NEG Urine Ketones (NEG) NEG Urine Nitrite (NEG) NEG Urine Bilirubin (NEG) NEG Urine Urobilinogen (0.1 - 1.0 EU/dl) 0.2 Ur Leukocyte Esterase (NEG) NEG Ur Microscopic SEDIMENT EXAMINED Urine RBC (0 - 5 /HPF) 1-3 Urine WBC (0 - 2 /HPF) RARE Ur Epithelial Cells (NONE,FEW) RARE Urine Hemoglobin (NEG) TRACE-INTACT H Urine Glucose (N MG/DL) NEG Diffential Diagnosis: Major Depressive Disorder Substance-induced mood disorder Cocaine use disorder Nicotine Dependence Impression: Pt with hx of depression and anxiety previously treated with xanax by PMD now with worsening depression, high level of suicidality with on-ging wish to in the setting of decades-long hidden crack cocaine use and worsening psychosocial stressors of fiancial instability, ?housing instability, and being caregiver to disabled mother. Pt previously given VPA likely because of report of manic-like sx without report of crack use. No evidence for amber occuring without concurrent substance use. Pt has many neurovegatative sx of depression, poor sleep, energy, anhedonia, and amotivation. Of note, sx of atypical depression with increased appetite and hypersensitivity to interpersonal criticisms and slights. However, increased appetite may be the result of wd (cocaine crash) for crack. Nonetheless, patient does have sx of depression that require treatment. As pt had intent to , wishes to try again, and is quite hopeless, he continues to be risk to harm to self. In addition, the degree of this risk is quite high, even in the hospital. As such, would continue 1:1 with close montioring as may try to kill self while on medical floor. At this time, would hold off on starting medication for mood given current somewhat intermittently sedated mental status and high risk for BDZ withdrawl given pt taking for the past 30 years. Provisional Treatment Plan: - Continue 1:1 sitter, please note pt at risk for attempting suicide while hospitalized - Pt cannot leave AMA, currently VOL for inpatient psych. If that changes, PEC can be written by ANY licenced provider in state of [place] for danger to self. - Pt needs to be monitored for BDZ wd, can use CIWA-B if available to track sx and BDZ for treatment. Last BDZ use would be one day ago. - Pt reports dx of MS, please note, long-standing cocaine or crack cocaine use can mimic Hamlin's fingers on imaging. Given pt keep use a secret, may have not been factored into dx at that time. Would f/u with s/s that lead to this diagnosis. - Family does not know about crack use, premission NOT granted to tell them. - Psych consult will continue to closely follow. Thank you for this consult.
--- NOTE | 2017-04-01 12:30 | NUR ---
AFTER DISCUSSING WITH LUCILLE PT IS CANCELLED FOR PHYSICAL THERAPY TODAY UNTIL PSYCH EVALUATION IS PERFORMED ON PT TO DETERMINE BEST COURSE OF TREATEMENT AND TO DETERMINE IF PHYSICAL THERAPY IS APPROPRIATE. WILL ATTEMPT WHEN MORE APPROPRIATE.
--- NOTE | 2017-04-01 19:44 | NUR ---
RECEIVED PATIENT AT 0800, SLEEPY/AROUSABLE/ANXIOUS/TEARY PATIENT CRYING THAT HE DIDN'T "DO A GOOD ENOUGH JOB THE FIRST TIME" HE STATES HE SHOULD HAVE FILLED HIS COZAAR BEFORE DOING IT BECAUSE THEN HE REALLY WOULD HAVE DONE HIMSELF IN. HE SPOKE ABOUT SMOKING $200 WORTH OF COCAINE BEFORE SWALLOWING THE XANAX. HE IS CONCERNED ABOUT MONEY AND DEBT AND THE STRESS OF TAKING CARE OF HIS MOTHER WHICH IS WHY HE WANTS TO END HIS LIFE AND STATES, "IF AT FIRST YOU DONT SUCCEED, TRY TRY AGAIN." PATIENT GIVEN EMOTIONAL REASSURANCE THROUGHOUT THE DAY. HE FEELS BETTER GETTING OUT OF BED AND INTO THE CHAIR, OWEN REMOVED AT 1400 AND PATIENT URINATING IN THE URINAL SINCE. PSYCH IN TO SEE PATIENT AND PATIENT TO BE PEC SO HE CANNOT LEAVE. JULIA IN TO SEE PATIENT WELL. PATIENT CONTINUING TO HAVE LABILE MOODS THROUGHOUT THE DAY. 1:1 SITTER AT BEDSIDE TO MAINTAIN SAFETY. PATIENT MADE GEN MED STATUS AT 1115. CONTINUING TO MONITOR AND GIVEN EMOTIONAL/THERAPEUTIC SUPPORT.
[2017-04-02 00:08] VITALS: BP 118/72
--- NOTE | 2017-04-02 00:48 | NUR ---
PT IS A/O X 3. OOB STEADY ON FEET SITTER REMAINS AT BEDSIDE, PT STATES"HE DID A FOOLISH THING AND HE IS WORRIED ABOUT HIS MOTHER'S CONDITION" VOIDS QS AFTER OWEN REMOVAL.
--- NOTE | 2017-04-02 07:05 | PN- Resident CRCU ---
GERRI PEACOCK,SHARMIN 04/02/17 0704: Subjective HPI/CRCU Issues: Mr. Fletcher was seen and examined at bedside this AM. He is resting comfortably in bed without acute distress. 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 He reports he feels well, denies fever, chills, chest pain, shortness of breath or weakness. 24 Hour Events: Worsening renal function as noted on AM labs. Otherwise, patient is a general medicine hold in the ICU so no telemetry events to report. Objective Vital Signs & I&O Last 8 Hrs of Vitals and I&O: Intake & Output 04/02 1600 Intake Total Output Total 900 Balance -900 Output, Urine 900 Exam General Appearance: well developed/nourished, no apparent distress, alert, awake , comfortable Head: atraumatic, normal appearance Ears, Nose, Throat: normal pharynx, normal ENT inspection, hearing grossly normal Neck: normal inspection, supple Respiratory: normal breath sounds, chest non-tender Cardiovascular: regular rate/rhythm Gastrointestinal: normal bowel sounds, soft, Obese Extremities: normal inspection, normal capillary refill Cranial Nerves: normal hearing, normal speech, PERRL Skin: intact, normal color Skin Temp/Moisture Exam: Warm/Dry Back: normal inspection Nutrition Nutrition: P.O. diet Current Medications: Current Medications Sig/Edy Start time Last Medication Dose Route Stop Time Status Admin Albuterol Sulfate 2 PUF BID PRN 03/31 2200 AC INH Heparin Sodium 5,000 UNIT Q8 03/31 2200 AC 04/02 (Porcine) SC 0509 Levothyroxine Sodium 0.15 MG DAILY AC 04/02 0845 AC / PO 0935 Levothyroxine Sodium 75 MCG DAILY 04/01 1000 DC / IV 1140 Nicotine 14 MG DAILY 04/01 1000 AC / TOP 0935 Sodium Chloride 1,000 ML Q13H 04/01 2100 AC 05/ IV 0936 Sodium Chloride 1,000 ML Q13H / 1730 DC 05/ IV 0636 CXR Findings: IMPRESSION: Limited assessment due to motion artifact, low lung volumes and patient rotation. Suspect low lung volumes with bibasilar subsegmental atelectasis. EKG Findings: NSR. Impression/Plan Impression/Problem List Impression: Mr. Fletcher is a 61 year old male with PMH significant for depression, anxiety, CHF (stage I diastolic dysfunction, EF 60%), pituitary tumor, viral myocarditis, hypothyroidism, hypertension, chronic venous insufficiency, recent admission to [facility] with upper GI bleed who was BIBA after a suicidal attempt and overdose with Xanax and losartan. Utox was positive for Benzo, Barbiturates, Cocaine. Poison control was also contacted for recommendations. Below is the problem list and plan: #Benzodiazepine poisoning * Continue to monitor airway and O2 saturation, patient currently on room air, provice O2 via NC to keep O2>92% * Capnography if evidence of hyperventilation and consider intubation if worsening hypoxemia * Continuous telemetry monitoring * Monitor for symptoms of withdrawal: tremors, anxiety, perceptual disturbances, dysphoria, psychosis and seizures (none noted in the last 24 hours) * Neurochecks Q4 * CIWA protocol for acute withdrawal, patient scoring 0-4 #Losartan overdose * BP 107/61 on admission, currently elevated to systolic 160/90 * Consider adding additional antihypertensive as BP high and losartan on hold, will trend BP * Watch for signs of angioedema in ARB overdose (none evident) * Watch for hyperkalemia, last K 4.3, repeat BEP in AM #Acute kidney injury on chronic renal dysfunction * BUN/creatinine 27 and 3.3 respectively, an acute increase from admission * Continue IV hydration, increased to 125 cc/h for now * Continue to hold losartan * Renal US to rule out obstruction * Nephro consult placed today, follow up recommendations * Repeat BEP at 6 pm and in AM to trend BUN/cre #Suicidal ideation and suicidal attempt * History of depression/anxiety/polysubstance abuse * Utox (+) for cocaine, barbiturates and Benzodiazepines * Patient is currently off of his escitalopram (has not gotten this medication per his pharmacy) * Recent worsening of symptoms precipitated by financial problems; does not follow with psych as an outpatient * Continue 1:1 sitter, cannot leave AMA, PEC signed by attending physician today * Social work consult placed, follow up recommendations (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 Hassan: Normal left ventricular wall thickness and normal LV EF at > 60%. Stage 1 diastolic dysfunction. Mild left atrial dilatation. Trace mitral regurgitation. Of note, patient sees Dr. Hassan as an outpatient. * EKG unremarkable and troponin negative x0.01, no report of chest pain. * Consider restarting furosemide if clinically indicated (prescribed but the patient is not taking it according to the mother) * Consider adding norvasc 5 mg daily if BP remains high as losartan is on hold #Chronic cough with history of COPD * TRC/Nebs as needed * Consider antibiotics if spikes fever, afebrile today. * Blood culture shows no growth to date, follow up final results * LRC pending #History of pituitary tumor & hypothyroidism * Continue levothyroxine at 0.15 mg PO daily * Home meds confirmed; patient apparently prescribed cabergoline however he has not filled the prescription and has never taken this medication * Close follow up to endo upon discharge #Smoking * Nicotine patch due to smoking * Counseled on tobacco cessation Regular diet DVTP: Heparin SC FULL CODE Problem List: 1. Depression with suicidal ideation 2. Cocaine abuse 3. Overdose of drug 4. Overdose of benzodiazepine 5. Anemia 6. Melena 7. Hypertension 8. Hypothyroid Pain Ratin Tomorrow's Labs & Rationales: CBC (monitor anemia in setting of ?dark stools) BEP (monitor renal dysfunction) Plan DVT/Prophylaxis: SUNDAY Rodríguez MD 04/02/17 3106: Attending MD Review Statement Attending Sign Off Attending Cosign Statement: I have: examined this patient, reviewed [facility] EMR data, personally reviewd images, discussd w/resident/PA/SEW OUT OPERATOR, discussed mgmt plan w/pt, agreed w/resident/ PA/SEW OUT OPERATOR, amended to note. Other Findings: The patient was seen and discussed with house staff. Appreciate Nephrology input. Psych follow-up also appreciated. Will follow Creatinine. Amlodipine for BP.
[2017-04-02 08:00] VITALS: BP 160/90
--- NOTE | 2017-04-02 11:54 | PN- Psychiatry ---
Assessment/Plan Impression: Identifying Info: 61-year-old single male HONEY unresponsive after mother and sister called 911 in the setting of several statements pt made about killing himself during some interpersonal discord driven by worsening fiancial stressors. Now admitted to medicine. SUBJECTIVE Patient states "I'm not depressed... I don't want to go to inpatient psychiatry and all feel like it's going to help me I just got overwhelmed because of my bills." Patient reports he is fearful no one is going to be able to take care of his mom or his Is endorsing high anxiety regarding this and asking for discharge. He verbalizes understanding of the seriousness of suicide attempt and denies that he would ever attempt suicide again. He pleads to not have to stay in the hospital "verbalizes understanding of need to stay. Declines and psychotropics. The pt denies s/s of BZD withdrawl. Brief ROS Gait: Ambulated with pt, reports steady Sleep: Adequate Appetite: Adequate OBJECTIVE Mental Status Exam Presentation/Appearance: Cooperative with evaluation. Hospital garb. Sitting in chair. Orientation: x4 Sensorium: Awake and alert Eye contact: Appropriate Affect: labile Mood: "I'm scared." Depression: Denies Anxiety: Endorses Thought Content: - Denies SI/HI, AH/VH, PI. States and also believes they will not kill themselves. - Denies Hopeless/Helpless Thoughts Thought Process: Perseverative on wanting to leave, goal directed Associations: Appropriate Speech: Normal tone and rate Judgment: Poor Insight: Poor Cognition: Memory: Grossly intact, deficits during period of OD Attention/Concentration: Grossly intact Fund of Knowledge: Adequate Abstractions:Did not assess MMSE: Did not assess ASSESSMENT 61-year-old male status post overdose attempt now minimizing serious suicide attempt. He will require inpatient psychiatric hospitalization. Differential diagnosis r/o Major Depressive Disorder Substance-induced mood disorder Cocaine use disorder Nicotine Dependence Suggestion: 1. Per resident report, PEC in chart awaiting attending signature, will confirm. 2. Continue to monitor for signs and symptoms of benzodiazepine withdrawal. 3. Patient cannot leave AMA until cleared by psychiatry. Plan for inpatient psychiatric hospitalization. Thank you for including psychiatry in this case will continue to follow Subjective Subjective: as above Objective Last 24 Hrs of Vital Signs/I&O Current Medications Sig/Edy Start time Last Medication Dose Route Stop Time Status Admin Albuterol Sulfate 2 PUF BID PRN 03/31 2200 AC INH Heparin Sodium 5,000 UNIT Q8 03/31 220 AC 04/02 (Porcine) SC 0509 Levothyroxine Sodium 0.15 MG DAILY AC 04/02 0845 AC 04/02 PO 0935 Levothyroxine Sodium 75 MCG DAILY 04/01 1000 DC 04/01 IV 1140 Nicotine 14 MG DAILY 04/01 1000 AC 04/02 TOP 0935 Sodium Chloride 1,000 ML Q13H 04/01 2100 AC 04/02 IV 0936 Sodium Chloride 1,000 ML Q13H 03/31 1730 DC 04/01 IV 0636 Laboratory Tests 04/02/17 0440: Anion Gap 6, Estimated GFR 19 L, Glucose 99, Calcium 8.5, Phosphorus 3.6, Magnesium 2.0, Total Bilirubin 0.3, AST 20, ALT 32, Albumin 3.1 L 04/01/17 0445: Anion Gap 8, Estimated GFR 32 L, BUN/Creatinine Ratio 11.4, CBC w Diff NO MAN DIFF REQ, RBC 3.84 L, MCV 85.2, MCH 28.5, RDW 19.4 H, MPV 7.6, Gran % 72.7, Lymphocytes % 14.4 L, Monocytes % 11.2 H, Eosinophils % 1.5, Basophils % 0.2, Absolute Granulocytes 6.8 H, Absolute Lymphocytes 1.3, Absolute Monocytes 1.0 H, Absolute Eosinophils 0.1, Absolute Basophils 0, PUBS MCHC 33.4 03/31/17 1915: pH 7.35, pCO2 40, pO2 62 L, HCO3 22, ABG O2 Sat (Measured) 88.0 L, P-50 (Temp Corrected) Y, Carboxyhemoglobin 3.1, O2 Concentration % 3L, Temperature 95.8 L, O2 Delivery Method NC, Phlebotomy Draw Site RIGHT RADIAL 03/31/17 1850: Anion Gap 9, Estimated GFR 44 L, Glucose 101 H, Calcium 9.0, Phosphorus 4.8 H , Magnesium 1.8, Total Bilirubin 0.5, AST 19, ALT 42, Albumin 3.3 L, CBC w Diff NO MAN DIFF REQ, RBC 3.95 L, MCV 85.6, MCH 27.9, RDW 19.5 H, MPV 7.6, Gran % 72.9, Lymphocytes % 12.7 L, Monocytes % 12.3 H, Eosinophils % 1.8, Basophils % 0.3, Absolute Granulocytes 6.3, Absolute Lymphocytes 1.1 L, Absolute Monocytes 1.1 H, Absolute Eosinophils 0.2, Absolute Basophils 0, PUBS MCHC 32.6 L 03/31/17 1330: Anion Gap 10, Estimated GFR 57 L, BUN/Creatinine Ratio 16.2, Glucose 107 H, Calcium 9.7, Total Bilirubin 0.5, AST 20, ALT 39, Alkaline Phosphatase 73, Troponin I < 0.01, Total Protein 6.8, Albumin 3.6, Globulin 3.2, Albumin/ Globulin Ratio 1.1, CBC w Diff NO MAN DIFF REQ, RBC 4.04 L, MCV 84.7, MCH 28.6, RDW 19.4 H, MPV 8.0, Gran % 61.5, Lymphocytes % 23.5, Monocytes % 11.1 H, Eosinophils % 3.6, Basophils % 0.3, Absolute Granulocytes 4.0, Absolute Lymphocytes 1.5, Absolute Monocytes 0.7 H, Absolute Eosinophils 0.2, Absolute Basophils 0, PUBS MCHC 33.7, Salicylates < 1.0, Acetaminophen < 10.0 L, Serum Alcohol < 10.0 03/31/17 1325: Urine Opiates Screen < 100.00, Methadone Screen < 40, Barbiturate Screen 745 H, Ur Phencyclidine Scrn < 6.00, Amphetamines Screen < 100, U Benzodiazepines Scrn > 800 H, Urine Cocaine Screen > 1000 H, Urine Cannabis Screen < 5.00, Urine Color YEL, Urine Clarity CLEAR, Urine pH 6.0, Ur Specific [place] 1.020, Urine Protein NEG, Urine Ketones NEG, Urine Nitrite NEG, Urine Bilirubin NEG, Urine Urobilinogen 0.2, Ur Leukocyte Esterase NEG, Ur Microscopic SEDIMENT EXAMINED, Urine RBC 1-3, Urine WBC RARE, Ur Epithelial Cells RARE, Urine Hemoglobin TRACE- INTACT H, Urine Glucose NEG Microbiology 03/31 2130 UPPER RESP: Surveillance Culture - COMP 03/31 2130 LOWER RESP: Respiratory Culture - CAN Cancelled: POOR QUALITY SPECIMEN - RECOLLECT NEEDED - CRI( [email or web address].[email or web address]) 03/31 2130 LOWER RESP: Gram Stain - CAN Cancelled: POOR QUALITY SPECIMEN - RECOLLECT NEEDED - CRI( [email or web address].[email or web address]) 03/31 2130 GI: Surveillance Culture - COMP 03/31 2020 BLOOD: Blood Culture - RES 03/31 185 BLOOD: Blood Culture - RES 03/31 1325 URINE ROUT: Urine Culture - COMP Vital Signs Date Time Temp Pulse Resp B/P B/P Pulse O2 O2 Flow FiO2 Mean Ox Delivery Rate 04/02 800 Room Air 04/02 800 98.5 88 18 160/90 95 Room Air 04/02 0008 98.7 68 20 118/72 92 Room Air 04/01 1800 97.7 74 16 122/60 / 1600 97.9 78 16 122/80 05/ 1600 96 Room Air Room Air 04/01 1600 97.9 78 16 122/80 96 Room Air Room Air / 1400 97.6 78 18 160/80 05/07 1200 97.6 78 18 160/80 Intake & Output 04/02 1600 04/02 0800 05 0000 Intake Total 780 1800 Output Total 900 1850 Balance -900 -1070 1800 Intake, IV 600 600 Intake, Oral 180 1200 Output, Urine 900 1850
[2017-04-02 12:16] VITALS: BP 156/80
--- NOTE | 2017-04-02 14:12 | Cons- Nephrology ---
General Information and HPI Consulting Request Date of Consult: 04/02/17 Requested By: RUSTY ALLEN MD Reason for Consult: Acute kidney injury; drug overdose History of Present Illness: I've been asked to see this 61-year-old man because of acute kidney injury in the setting of drug overdose. He has a significant past medical history as noted below including depression, anxiety, stage I diastolic dysfunction with normal LVEF, hypertension and apparently significant NSAID use in the past but not recently. His outpatient medication regimen included furosemide and losartan 100 mg tablets. He now comes in after a suicide attempt with ingestion of about 60 tablets of Xanax and 20 tablets of losartan. His lowest blood pressure recorded here was 107 systolic on admission. Since then his pressures have been normal to high. There has been no hyperkalemia with serum potassium levels that have ranged from 4.2-4.7. Of note is the fact that he has been smoking crack cocaine for the past 30 years, something he was very unwilling to admit.. He denies any IV drug use and had not noticed any dark urine. His creatinine on admission was 1.3 and has been consistently rising to a level of 3.3 today. There was no CK level done thus far; urinalysis showed trace hemoglobin by dipstick with 1-3 RBCs. The patient is unaware of any previous history of kidney disease but his baseline creatinine seems to have ranged from 1.2-1.4 over the past 2-3 years with one previous level as high as 1.6 in September 2016. He does not appear to have any proteinuria either currently or in the past. Past medical history is positive for depression, anxiety, diastolic congestive heart failure with normal LVEF, viral myocarditis, hypothyroidism, hypertension, pituitary tumor, chronic venous insufficiency with previous ulceration in his left leg, upper GI bleed. Medications: See below Allergies: Codeine, SMX/TMP Family history negative for kidney disease in either of his parents. Positive for some kidney problem in his 58-year-old sister. Social history: Never , no children, lives at home with his mother, cigarette smoker, crack cocaine as noted above, denies alcohol abuse or IV drug use. Allergies/Medications Allergies: Coded Allergies: sulfamethoxazole (From BACTRIM) (Severe, RASH 11/03/16) trimethoprim (From BACTRIM) (Severe, RASH 11/03/16) codeine (Intermediate, VOMITING, FACE NUMBNESS 10/17/16) Home Med List: Albuterol Sulfate (Ventolin Hfa) 90 MCG HFA.AER.AD 2 PUF INH AD PRN RESPIRATORY (Reported) Alprazolam 0.5 MG TABLET 1 TAB PO BIDP PRN ANXIETY (Reported) Aspirin (Aspirin*) 81 MG TAB.CHEW 1 TAB PO DAILY HEART HEALTH (Reported) Carvedilol 25 MG TABLET 1 TAB PO BID HEART (Reported) Cholecalciferol (Vitamin D3) 1,000 UNIT TABLET 1 TAB PO DAILY SUPPLEMENT ( Reported) Escitalopram Oxalate 10 MG TABLET 1 TAB PO DAILY DEPRESSION (Reported) Furosemide 20 MG TABLET 1 TAB PO DAILY WATER PILL (Reported) Levothyroxine Sodium 150 MCG TABLET 1 TAB PO DAILY AC THYROID (Reported) Losartan Potassium 100 MG TABLET 1 TAB PO DAILY HEART (Reported) Review of Systems Review of Systems Constitutional: Reports: no symptoms. EENTM: Reports: no symptoms. Cardiovascular: Reports: no symptoms. Respiratory: Reports: no symptoms. GI: Reports: no symptoms. Genitourinary: Reports: no symptoms. Musculoskeletal: Reports: muscle pain. Skin: Reports: no symptoms. Past History Travel History Traveled to [place] past 21 day No Medical History Neurological: migraine, multiple sclerosis EENT: NONE Cardiovascular: CHF, chronic venous insuff, hypertension, myocardial infarction, VIRAL PERICARDITIS Respiratory: NONE Gastrointestinal: NONE Hepatic: NONE Renal: borderline GFR Musculoskeletal: degen joint disease, falls, spinal stenosis Psychiatric: anxiety, insomnia, mood disorder Endocrine: hypothyroidism, obesity, vitamin D deficiency, pituitary tumor Blood Disorders: NONE Cancer(s): pituitary tumor- txd with Cabergoline; hx skull fibromas SENIOR EDITOR/Reproductive: NONE Surgical History Surgical History: BENIGN BREAST TUMOR REMOVAL B/L, PILONIDAL CYST REMOVAL, REMOVAL OF SKULL FIBROMAS VASC PROCEDURE LLE Family History Relations & Conditions If Any: FATHER, , Age 64; Cause: Gallbladder cancer. MOTHER (MS). Age 84. SISTER (MS). Psychosocial History Who Do You Live With? parent (mom) Services at Home: None Primary Language: [place]ian Smoking Status: Current Everyday Smoker Living Will? no Power of Lbd Teacher/HCP? no Functional Ability ADLs Independent: dressing, eating, toileting, bathing. Ambulation: independent IADLs Independent: shopping, housework, finances, food prep, telephone, transportation , medication admin. Exam & Diagnostic Data Vital Signs and I&O Vital Signs Date Time Temp Pulse Resp B/P B/P Pulse O2 O2 Flow FiO2 Mean Ox Delivery Rate 04/02 1326 88 146/88 04/02 1216 80 156/80 04/02 0800 Room Air 04/02 0800 98.5 88 18 160/90 95 Room Air 04/02 0008 98.7 68 20 118/72 92 Room Air 04/01 1800 97.7 74 16 122/60 04/01 1600 97.9 78 16 122/80 04/01 1600 96 Room Air Room Air 04/01 1600 97.9 78 16 122/80 96 Room Air Room Air Intake & Output 04/02 0400 04/01 1600 04/01 0400 03/31 1600 03/31 0400 Intake Total 780 1800 0587 603 7501 Output Total 2750 1100 870 Balance -1970 1800 250 -720 2000 Intake, IV 976 001 6206 150 2000 Intake, Oral 180 1200 150 Output, Urine 2750 1100 870 Patient 312 lb 290 lb Weight Weight Bed scale Measurement Method Physical Exam: General: Well-developed white male, somewhat inappropriately in good spirits, in NAD Skin: No rash or jaundice HEENT: Conjunctivae pink, sclerae anicteric, mucous membranes moist Neck: Without masses or thyromegaly, no supraclavicular or cervical adenopathy] Chest: Clear to P&A Heart: Regular rate and rhythm without S3 or rub Abdomen: Soft and nontender without palpable masses or organomegaly Extremities: Without cyanosis; left leg is edematous with chronic overlying skin changes Neuro: No focal findings, no asterixis or myoclonus Assessment/Plan Assessment/Recommendations Assessment: 61-year-old man with multiple comorbidities as noted above and a history of chronic crack cocaine use, comes in now after an apparent suicide attempt (his first?) With overdose of Xanax and 20 100 mg losartan tablets. He has acute kidney injury (nonoliguric) without any clear-cut significant hypotension or hyperkalemia. This is presumably on a prerenal basis due to profound suppression of the RAAS. However, we do need to consider the possibility of rhabdomyolysis secondary to cocaine. Cocaine induced vasculitis less likely in the absence of significant proteinuria or hematuria. Finally, in view of worsening renal function an obstructive component needs to be considered and ruled out. Recommendations: 1. Please add a CK level to today's labs 2. Renal ultrasound 3. Continue IV hydration but monitor closely for development of fluid overload/ CHF. 4. Monitor intake and output, chemistries daily 5. No clinical indication for dialysis. Parenthetically, losartan is heavily protein-bound and non-dialyzable
[2017-04-02 16:00] VITALS: BP 160/85
--- NOTE | 2017-04-02 17:13 | ULTRASOUND REPORT ---
EXAMINATION: US RETROPERITONEAL COMPLETE (RENAL) CLINICAL INFORMATION: Acute worsening renal failure. Evaluate for an obstruction. COMPARISON: No relevant prior studies are available for comparison. TECHNIQUE: Real-time imaging of the kidneys and bladder. FINDINGS: RIGHT KIDNEY: 12.1 x 6.3 x 5.8 cm (SAG x AP x TRV). The kidney is normal in size, contour, and echogenicity. Renal cortical thickness is normal. No calculi or focal parenchymal lesions. No hydronephrosis. LEFT KIDNEY: 13.1 x 7.4 x 6.0 cm (SAG x AP x TRV). The kidney is normal in size, contour, and echogenicity. Renal cortical thickness is normal. No calculi or focal parenchymal lesions. No hydronephrosis. BLADDER: Well-distended and normal. Bilateral ureteral jets are demonstrated. Prevoid bladder volume is 250 mL. IMPRESSION: No hydronephrosis. Bilateral ureteral jets identified.
--- NOTE | 2017-04-02 20:01 | Cons- Endocrinology ---
General Information and HPI Consulting Request Date of Consult: 04/02/17 Requested By: medical team Reason for Consult: Pituitary tumor Source of Information: patient, old records Exam Limitations: no limitations History of Present Illness: This 61-year-old male has a long-standing history of a pituitary adenoma. It was first discovered in 1993. At that time the patient was found to have a mass in in the pituitary area which extended into the sphenoid sinus and also into the right cavernous sinus. The tissue surrounded the right carotid artery. There was no pressure on the optic chiasm. The patient has been treated with a dopamine agonist most recently cabergoline. The pituitary tumor showed signs of shrinkage on the cabergoline. The patient then moved to [place]. And returned in 1998. The patient's most recent MRI done in September 2013 with and without gadolinium shows a lobular mass within the lateral seller extending into the cavernous sinus which now measures 25 mm x 12 meal millimeters by 22 mm. The mass is smaller than originally measured but was stable since the other most recent MRI. Once again there is no pressure on the optic chiasm and the infundibulum remains midline. This patient is admitted with a drug overdose. He states that he is very depressed. He has some chronic renal disease with creatinines in the 1.4-1.5 range. During this admission his creatinine has risen to 3.3. Patient has been seen by the nephrology service is presently getting some hydration. His lisinopril has been stopped and he is on amlodipine The patient also has a history of morbid obesity. If anything lately he has gained weight. He states he is hungry all the time. Allergies/Medications Allergies: Coded Allergies: sulfamethoxazole (From BACTRIM) (Severe, RASH 11/03/16) trimethoprim (From BACTRIM) (Severe, RASH 11/03/16) codeine (Intermediate, VOMITING, FACE NUMBNESS 10/17/16) Home Med List: Albuterol Sulfate (Ventolin Hfa) 90 MCG HFA.AER.AD 2 PUF INH AD PRN RESPIRATORY (Reported) Amlodipine Besylate (Norvasc) 10 MG TABLET 1 TAB PO DAILY BP Aspirin (Aspirin*) 81 MG TAB.CHEW 1 TAB PO DAILY HEART HEALTH (Reported) Cabergoline 0.5 MG TABLET 0.5 TAB PO 2XW UNKNOWN Carvedilol 25 MG TABLET 1 TAB PO BID HEART (Reported) Cholecalciferol (Vitamin D3) 1,000 UNIT TABLET 1 TAB PO DAILY SUPPLEMENT ( Reported) Levothyroxine Sodium 150 MCG TABLET 1 TAB PO DAILY AC THYROID (Reported) Nicotine (Nicotine Patch) 14 MG/24 HOUR PATCH.TD24 1 MG TOP DAILY SMOKING Current Medications: Current Medications Sig/Edy Start time Last Medication Dose Route Stop Time Status Admin Albuterol Sulfate 2 PUF BID PRN 03/31 2200 AC INH Amlodipine Besylate 5 MG DAILY 04/02 1245 AC 04/02 PO 1326 Heparin Sodium 5,000 UNIT Q8 03/31 2200 AC 04/02 (Porcine) SC 1328 Levothyroxine Sodium 0.15 MG DAILY AC 04/02 0845 AC 04/02 PO 0935 Levothyroxine Sodium 75 MCG DAILY 04/01 1000 DC 04/01 IV 1140 Nicotine 14 MG DAILY 04/01 1000 AC 04/02 TOP 0935 Non-Formulary 0 SEE ADMIN CRITERIA 04/02 1515 UNVr Medication ANY Sodium Chloride 1,000 ML Q13H 04/01 2100 AC 04/02 IV 1749 Sodium Chloride 1,000 ML Q13H 03/31 1730 DC 04/01 IV 0636 Review of Systems Review of Systems Constitutional: Denies: chills, fever. Cardiovascular: Denies: chest pain. Respiratory: Denies: short of breath. GI: Denies: abdominal pain, nausea, vomiting. Skin: Denies: rash. Past History Travel History Traveled to [place] past 21 day No Medical History Neurological: migraine, multiple sclerosis EENT: NONE Cardiovascular: CHF, chronic venous insuff, hypertension, myocardial infarction, VIRAL PERICARDITIS Respiratory: NONE Gastrointestinal: NONE Hepatic: NONE Renal: borderline GFR Musculoskeletal: degen joint disease, falls, spinal stenosis Psychiatric: anxiety, insomnia, mood disorder Endocrine: hypothyroidism, obesity, vitamin D deficiency, pituitary tumor Blood Disorders: NONE Cancer(s): pituitary tumor- txd with Cabergoline; hx skull fibromas GIRL FRIDAY/Reproductive: NONE Surgical History Surgical History: BENIGN BREAST TUMOR REMOVAL B/L, PILONIDAL CYST REMOVAL, REMOVAL OF SKULL FIBROMAS VASC PROCEDURE LLE Family History Relations & Conditions If Any: FATHER, , Age 64; Cause: Gallbladder cancer. MOTHER (MS). Age 84. SISTER (MS). Psychosocial History Who Do You Live With? parent (mom) Services at Home: None Primary Language: [place] Smoking Status: Current Everyday Smoker Living Will? no Power of Ribbon Hand/HCP? no Functional Ability ADLs Independent: dressing, eating, toileting, bathing. Ambulation: independent IADLs Independent: shopping, housework, finances, food prep, telephone, transportation , medication admin. Exam & Diagnostic Data Last 24 Hrs of Vital Signs/I&O Vital Signs Date Time Temp Pulse Resp B/P B/P Pulse O2 O2 Flow FiO2 Mean Ox Delivery Rate 05/ 1600 Room Air 05/08 1600 97.5 80 18 160/85 96 Room Air 05/08 1326 88 146/88 05/08 1216 80 156/80 05/08 0800 Room Air 05/08 0800 98.5 88 18 160/90 95 Room Air 05/08 0008 98.7 68 20 118/72 92 Room Air Intake & Output / 1600 05/08 0800 05/08 0000 Intake Total 2024 780 1800 Output Total 1550 1850 Balance 475 -1070 1800 Intake, IV 1025 600 600 Intake, Oral 8294 790 6854 Output, Urine 1550 1850 Vital Signs Date Time Temp Pulse Resp B/P B/P Pulse O2 O2 Flow FiO2 Mean Ox Delivery Rate 05/08 1600 Room Air 05/08 1600 97.5 80 18 160/85 96 Room Air 05/08 1326 88 146/88 05/08 1216 80 156/80 05/08 0800 Room Air 05/08 0800 98.5 88 18 160/90 95 Room Air 05/08 0008 98.7 68 20 118/72 92 Room Air Intake & Output 08 1600 05/08 0800 05/08 0000 Intake Total 2024 780 1800 Output Total 1550 1850 Balance 475 -1070 1800 Intake, IV 1025 600 600 Intake, Oral 4278 758 9192 Output, Urine 1550 1850 Physical Exam General Appearance: alert, awake, crying, morbidly obese Head: atraumatic, normal appearance Eyes: Bilateral: normal appearance. Neck: normal inspection Respiratory: normal breath sounds, quiet respiration Cardiovascular: regular rate/rhythm Gastrointestinal: normal bowel sounds, soft, obese Extremities: mild edema lower legs with stasis dermatitis Neurologic/Psych: awake, alert Skin: intact Assessment/Plan Assessment/Plan This patient has a history of a pituitary adenoma. He has hypo-hypothyroidism and is on his usual dose of thyroid hormone. However he needs to continue his cabergoline because without this medication his pituitary tumor could begin to grow again. In addition with patients with clear pituitary problems are admitted to the hospital and acutely ill it is worthwhile checking that thyroid function tests with a free T4 and TSH and also checking the serum cortisol. These two hormones are essential and could contribute to depression and acute illness. Suggest we check the patient's free T4, TSH, prolactin, and a.m. cortisol level. I do not think his cortisol needs to be checked as an emergency as the patient' s blood pressure is high and not low. We should restart the patient's cabergoline and the dosage of just 0.5 mg once a week. Previously he was on 0.25 mg twice a week but recent studies show that once a week dosage is just as effective. Consult Acknowledgment - Thank you for your consult request.
[2017-04-02 23:41] VITALS: BP 158/96
[2017-04-03 05:23] LABS: ABSOLUTE BASOPHIL COUNT 0 /CUMM (0.0-0.2); ABSOLUTE EOSINOPHIL COUNT 0.2 /CUMM (0.0-0.7); ABSOLUTE GRANULOCYTE CT 4.4 /CUMM (1.4-6.5); ABSOLUTE LYMPH COUNT 1.4 /CUMM (1.2-3.4); ABSOLUTE MONOCYTE COUNT 0.9 /CUMM (0.10-0.60); BASOPHIL % 0.3 % (0.0-2.0); GRANULOCYTE % 63.6 % (42.2-75.2); HEMATOCRIT 30.6 % (42-52); MEAN CORPUSCULAR HGB 28.8 PG (27.0-31.0); MEAN CORPUSCULAR HGB CONC 33.7 G/DL (33.0-37.0); MEAN CORPUSCULAR VOLUME 85.4 FL (80.0-94.0); MEAN PLATELET VOLUME 7.3 FL (7.4-10.4); PLATELET COUNT 185 /CUMM (130-400); RBC DISTRIBUTION WIDTH 19.2 % (11.5-14.5); RED BLOOD CELL CT 3.58 /CUMM (4.70-6.10)
--- NOTE | 2017-04-03 06:45 | PN- Housestaff ---
SHARMIN TALLEY MD 04/03/17 0645: Subjective Follow-up For: Xanax overdose Losartan overdose Acute on chronic kidney injury Suicidal ideation and suicidal attempt Pituitary tumor on cabergoline once a week Subjective: Patient seen and examined at bedside this AM. He reports he feels well without complaints. He does admit to slight right-sided low back pain, though he reports it may be secondary to abnormal bed positioning. Patient denies dysuria, chest pain, shortness of breath or weakness. Patient denies SI/HI. Review of Systems Constitutional: Denies: diaphoresis, fever, malaise. EENTM: Denies: visual changes, hearing changes, nasal congestion. Cardiovascular: Denies: chest pain, palpitations. Respiratory: Denies: cough, short of breath. Gastrointestinal: Denies: abdominal pain, constipation. Genitourinary: Denies: dysuria. Musculoskeletal: Reports: back pain. Skin: Denies: rash. Neurological/Psychological: Denies: confusion, headache. Hematologic/Endocrine: Denies: bruising, bleeding. Objective Last 24 Hrs of Vital Signs/I&O Vital Signs Date Time Temp Pulse Resp B/P B/P Pulse O2 O2 Flow FiO2 Mean Ox Delivery Rate / 0000 94 Room Air 04/02 2341 97.7 78 20 158/96 93 Room Air / 1600 Room Air / 1600 97.5 80 18 160/85 96 Room Air / 1326 88 146/88 /08 1216 80 156/80 Intake & Output 04/03 1600 /09 0800 05/ 0000 Intake Total 1400 1960 Output Total 1750 700 Balance -350 1260 Intake, IV 1000 1000 Intake, Oral 400 960 Number 0 0 Bowel Movements Output, Urine 1750 700 Physical Exam General Appearance: Alert, Oriented X3, Cooperative, No Acute Distress Skin: No Rashes, No Significant Lesion Skin Temp/Moisture Exam: Warm/Dry HEENT: Atraumatic, Mucous Membr. moist/pink Neck: Supple, No JVD Lymphatic: Cervical nl Cardiovascular: Regular Rate, Normal S1, Normal S2 Lungs: Normal Air Movement Abdomen: Obese, evidence of bruising at areas of heparin injection, no tenderness, + BS Neurological: Normal Speech, Strength at 5/5 X4 Ext, Normal Tone Extremities: No Clubbing, No Cyanosis Vascular: Pulses Symmetrical Current Medications: Current Medications Sig/Edy Start time Last Medication Dose Route Stop Time Status Admin Albuterol Sulfate 2 PUF BID PRN 03/31 2200 AC INH Amlodipine Besylate 10 MG DAILY 04/03 1000 AC PO Amlodipine Besylate 5 MG DAILY 04/02 1245 DC 04/02 PO 1326 Cabergoline 0.5 MG Mo 04/02 2200 AC 04/02 PO 2145 Cosyntropin 0.25 MG ONE ONE 04/03 0730 DC 04/03 IV 04/03 0731 0850 Heparin Sodium 5,000 UNIT Q8 03/31 2200 AC 04/03 (Porcine) SC 0614 Levothyroxine Sodium 0.15 MG DAILY AC 04/02 0845 AC 04/03 PO 0614 Nicotine 14 MG DAILY 04/01 1000 AC 04/02 TOP 0935 Sodium Chloride 1,000 ML Q13H 04/01 2100 AC 04/03 IV 0153 Last 24 Hrs of Lab/Nav[place]et Results Last 24 Hrs of Labs/Mics: Laboratory Tests 04/03/17 0516: Anion Gap 8, Estimated GFR 19 L, BUN/Creatinine Ratio 9.7, Cortisol AM Sample 7.4, CBC w Diff NO MAN DIFF REQ, RBC 3.58 L, MCV 85.4, MCH 28.8, RDW 19.2 H, MPV 7.3 L, Gran % 63.6, Lymphocytes % 19.5 L, Monocytes % 13.6 H, Eosinophils % 3.0, Basophils % 0.3, Absolute Granulocytes 4.4, Absolute Lymphocytes 1.4, Absolute Monocytes 0.9 H, Absolute Eosinophils 0.2, Absolute Basophils 0, PUBS MCHC 33.7 04/02/17 1605: Anion Gap 9, Estimated GFR 19 L, BUN/Creatinine Ratio 9.1, TSH 0.394, Free T4 1.11, Total T3 0.94 L Orders Radiology Findings: CXR: IMPRESSION: Limited assessment due to motion artifact, low lung volumes and patient rotation. Suspect low lung volumes with bibasilar subsegmental atelectasis. Miscellaneous Findings: Renal B/L US: IMPRESSION: No hydronephrosis. Bilateral ureteral jets identified. Assessment/Plan Assessment: Mr. Fletcher is a 61 year old male with PMH significant for depression, anxiety, CHF (stage I diastolic dysfunction, EF 60%), pituitary tumor, viral myocarditis, hypothyroidism, hypertension, chronic venous insufficiency, recent admission to [facility] with upper GI bleed who was BIBA after a suicidal attempt and overdose with Xanax and losartan. Utox was positive for Benzo, Barbiturates, Cocaine. Poison control was also contacted for recommendations. Below is the problem list and plan: #Benzodiazepine poisoning * Continue to monitor airway and O2 saturation, patient currently on room air saturating well, provice O2 via NC to keep O2>92% * No longer need telemetry monitoring * Monitor for symptoms of withdrawal: tremors, anxiety, perceptual disturbances, dysphoria, psychosis and seizures (none noted in the last 24 hours) * Neurochecks Q4 * CIWA protocol for acute withdrawal, patient scoring 0-5 #Losartan overdose * BP 107/61 on admission, currently elevated to systolic 158/96 * BP remains elevated after starting 5 mg PO norvasc yesterday, will increase to 10 mg PO norvasc today and monitor vital signs closely * No signs of angioedema after ARB overdose * Watch for hyperkalemia, last K 4.6, repeat BEP in AM #Acute kidney injury on chronic renal dysfunction * Likely 2/2 losartan toxicity * BUN/creatinine 32 and 3.3 respectively, an acute increase from admission though it has been stable over the last 3 days * Continue IV hydration, though will likely consider discontinuing as he appears euvolemic * Continue to hold losartan * Renal US ruled out obstruction/hydronephrosis * Nephro consult appreciated, will continue to follow recommendations #Suicidal ideation and suicidal attempt * History of depression/anxiety/polysubstance abuse * Utox (+) for cocaine, barbiturates and Benzodiazepines * Patient is currently off of his escitalopram (has not gotten this medication per his pharmacy) * Recent worsening of symptoms precipitated by financial problems; does not follow with psych as an outpatient * Continue 1:1 sitter, cannot leave AMA, PEC signed by attending physician today , patient will be transferred to an inpatient psychiatric unit once bed available * Social work consult placed (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 Hassan: Normal left ventricular wall thickness and normal LV EF at > 60%. Stage 1 diastolic dysfunction. Mild left atrial dilatation. Trace mitral regurgitation. Of note, patient sees Dr. Hassan as an outpatient. * EKG unremarkable and troponin negative x0.01, no report of chest pain. * Consider restarting furosemide if clinically indicated (prescribed but the patient is not taking it according to the mother) * Consider adding norvasc 5 mg daily if BP remains high as losartan is on hold #Chronic cough with history of COPD * TRC/Nebs as needed * Consider antibiotics if spikes fever, afebrile today. * Blood culture shows no growth to date, follow up final results * LRC pending #History of pituitary tumor & hypothyroidism * Continue levothyroxine at 0.15 mg PO daily * Continue cabergoline 0.5 mg PO once a week * Cosyntropin stimulation test shows normal results as 1 hour follow up cortisol >18 * Close follow up to endo upon discharge #Smoking * Nicotine patch due to smoking * Counseled on tobacco cessation Regular diet DVTP: Heparin SC FULL CODE Problem List: 1. Depression with suicidal ideation 2. Cocaine abuse 3. Overdose of drug 4. Overdose of benzodiazepine 5. Anemia 6. Hypothyroid 7. Hypertension 8. SUZI (acute kidney injury) Pain Ratin (Right flank) Pain Location: Right flank, no CVA tenderness Pain Goal: Remain pain free Pain Plan: Mild pain pathway PRN. Tomorrow's Labs & Rationales: BEP (monitor renal function in setting of acute on chronic kidney injury) CBC (reported history of GIB) DVT/Prophylaxis: pharmacological (Heparin SC) SUNDAY YOUNGBLOOD MD 04/03/172101: Attending Review Statement Attending Statement Attending MD Statement: examined this patient, discuss w/resident/PA/PRIVATE DETECTIVE, agreed w/resident/PA/PRIVATE DETECTIVE, reviewed EMR data (avail), amended to note Attending Assessment/Plan: The patient was seen and discussed with house staff. Appreciate Psychiatry and Nephrology follow-up as well as Endocrinology input. Agree with plan of care as outlined. Await availability of psychiatric bed. Continue to monitor renal function.
--- NOTE | 2017-04-03 07:34 | PN- Endocrinology ---
Assessment/Plan Assessment: The patient states he feels a little better. Still tearful. Patient's most recent labs show a TSH of 0.394 free T4 1 0.1. His prolactin is 95.2. His a.m. cortisol this morning is 7.4 which is in the normal range but not high enough to rule out adrenal insufficiency. The patient's creatinine has leveled off at 3.3 Plan: Suggest that a Cortrosyn stimulation test be done in view of the possibility of secondary adrenal insufficiency. We should give him 1 amp of Cortrosyn IV bolus and then measure the serum cortisol one hour later. This level should be over 18 to be called normal. Subjective Subjective: Still feels depressed Review of Systems Constitutional: Denies: see HPI, fever. Cardiovascular: Denies: chest pain. Respiratory: Denies: cough, short of breath. Gastrointestinal: Denies: abdominal pain. Skin: Reports: no symptoms. Objective Last 24 Hrs of Vital Signs/I&O Vital Signs Date Time Temp Pulse Resp B/P B/P Pulse O2 O2 Flow FiO2 Mean Ox Delivery Rate 05/ 0000 94 Room Air 05/ 2341 97.7 78 20 158/96 93 Room Air 05/08 1600 Room Air 05/08 1600 97.5 80 18 160/85 96 Room Air 05/08 1326 88 146/88 05/08 1216 80 156/80 05/08 0800 Room Air 05/08 0800 98.5 88 18 160/90 95 Room Air Intake & Output / 0800 05/09 0000 05/08 1600 Intake Total 1400 1959 2024 Output Total 2110 378 9839 Balance -350 1260 475 Intake, IV 1000 1000 1025 Intake, Oral 929 951 6806 Number 0 0 Bowel Movements Output, Urine 0002 228 6632 Vital Signs Date Time Temp Pulse Resp B/P B/P Pulse O2 O2 Flow FiO2 Mean Ox Delivery Rate 05/ 0000 94 Room Air 05/08 2341 97.7 78 20 158/96 93 Room Air 05/08 1600 Room Air 05/08 1600 97.5 80 18 160/85 96 Room Air 05/08 1326 88 146/88 05/08 1216 80 156/80 05/08 0800 Room Air 05/08 0800 98.5 88 18 160/90 95 Room Air Intake & Output 05/ 0800 05/09 0000 05/08 1600 Intake Total 1400 1960 2025 Output Total 6583 470 4019 Balance -350 1260 475 Intake, IV 1000 1000 1025 Intake, Oral 531 081 0905 Number 0 0 Bowel Movements Output, Urine 1018 025 4322 Physical Exam General Appearance: obese Head: normal appearance Neck: normal inspection Respiratory: normal breath sounds Cardiovascular: regular rate/rhythm Extremities: stasis dermatitis Current Medications: Current Medications Sig/Edy Start time Last Medication Dose Route Stop Time Status Admin Albuterol Sulfate 2 PUF BID PRN 03/31 2200 AC INH Amlodipine Besylate 5 MG DAILY 04/02 1245 AC 04/02 PO 1326 Cabergoline 0.5 MG Mo 04/02 2200 AC 04/02 PO 2145 Cosyntropin 0.25 MG ONE ONE 04/03 0730 UNVr IV 04/03 0731 Heparin Sodium 5,000 UNIT Q8 03/310 AC 04/03 (Porcine) SC 0614 Levothyroxine Sodium 0.15 MG DAILY AC 04/02 0845 AC 04/03 PO 0614 Levothyroxine Sodium 75 MCG DAILY 04/01 1000 DC 04/01 IV 1140 Nicotine 14 MG DAILY 04/01 1000 AC 04/02 TOP 0935 Sodium Chloride 1,000 ML Q13H 04/01 2100 AC 04/03 IV 0153 Results Pertinent Lab/Navneet Results: Laboratory Tests 04/03 04/02 0516 1605 Chemistry Sodium (137 - 145 mmol/L) 142 137 Potassium (3.5 - 5.1 mmol/L) 4.6 4.7 Chloride (98 - 107 mmol/L) 112 H 106 Carbon Dioxide (22 - 30 mmol/L) 22 22 Anion Gap (5 - 16) 8 9 BUN (9 - 20 mg/dL) 32 H 31 H Creatinine (0.7 - 1.2 mg/dL) 3.3 H 3.4 H Estimated GFR (>60 ml/min) 19 L 19 L BUN/Creatinine Ratio (7 - 25 %) 9.7 9.1 TSH (0.270 - 4.200 uIU/mL) 0.394 Free T4 (0.64 - 1.79 ng/dL) 1.11 Total T3 (0.97 - 1.69 ng/mL) 0.94 L Cortisol AM Sample (4.46 - 22.7 ug/dL) 7.4 Hematology CBC w Diff NO MAN DIFF REQ WBC (4.8 - 10.8 /CUMM) 7.0 RBC (4.70 - 6.10 /CUMM) 3.58 L Hgb (14.0 - 18.0 G/DL) 10.3 L Hct (42 - 52 %) 30.6 L MCV (80.0 - 94.0 FL) 85.4 MCH (27.0 - 31.0 PG) 28.8 RDW (11.5 - 14.5 %) 19.2 H Plt Count (130 - 400 /CUMM) 185 MPV (7.4 - 10.4 FL) 7.3 L Gran % (42.2 - 75.2 %) 63.6 Lymphocytes % (20.5 - 51.1 %) 19.5 L Monocytes % (1.7 - 9.3 %) 13.6 H Eosinophils % (0 - 5 %) 3.0 Basophils % (0.0 - 2.0 %) 0.3 Absolute Granulocytes (1.4 - 6.5 /CUMM) 4.4 Absolute Lymphocytes (1.2 - 3.4 /CUMM) 1.4 Absolute Monocytes (0.10 - 0.60 /CUMM) 0.9 H Absolute Eosinophils (0.0 - 0.7 /CUMM) 0.2 Absolute Basophils (0.0 - 0.2 /CUMM) 0 PUBS MCHC (33.0 - 37.0 G/DL) 33.7
[2017-04-03 08:00] VITALS: BP 180/98
--- NOTE | 2017-04-03 08:46 | PN- Psychiatry ---
Assessment/Plan Impression: Identifying Info: 61-year-old single male HONEY unresponsive after mother and sister called 911 in the setting of several statements pt made about killing himself during some interpersonal discord driven by worsening finical stressors. Now admitted to medicine. SUBJECTIVE "I'm good." Today the patient is more accepting of the idea to inpatient psychiatric hospitalization. Educated on the transfer process. Endorses hope for the future. Assess if he can be discharged before Mother's Day. Again declines psychotropics. The pt denies s/s of BZD withdrawl. Brief ROS Gait: Ambulated with pt, reports steady Sleep: Adequate Appetite: Adequate OBJECTIVE Mental Status Exam Presentation/Appearance: Cooperative with evaluation. Hospital garb. Sitting in chair. Orientation: x4 Sensorium: Awake and alert Eye contact: Appropriate Affect: Full range, congruent with stated mood Mood: "I'm good" Depression: Denies Anxiety: Denies Thought Content: - Denies SI/HI, AH/VH, PI. States and also believes they will not kill themselves. - Denies Hopeless/Helpless Thoughts Thought Process: Perseverative on wanting to leave, goal directed Associations: Appropriate Speech: Normal tone and rate Judgment: Fair Insight: Fair Cognition: Memory: Grossly intact, deficits during period of OD Attention/Concentration: Grossly intact Fund of Knowledge: Adequate Abstractions:Did not assess MMSE: Did not assess Per house staff and attending report patient will be medically cleared this morning. Elevated kidney function tests believed to be residual from losartan overdose on top of CKD. Nephrology believes they will continue to improve. ASSESSMENT 61-year-old male status post overdose attempt now minimizing serious suicide attempt. He will require inpatient psychiatric hospitalization. Differential diagnosis r/o Major Depressive Disorder Substance-induced mood disorder Cocaine use disorder Nicotine Dependence Suggestion: 1. PEC in chart, patient cannot leave AMA until cleared by psychiatry 2. Continue to monitor for signs and symptoms of benzodiazepine withdrawal. 3. Plan for inpatient psychiatric hospitalization on [facility] vs another local psych facility depending on bed availability. Thank you for including psychiatry in this case will continue to follow. Subjective Subjective: as above Objective Last 24 Hrs of Vital Signs/I&O Current Medications Sig/Edy Start time Last Medication Dose Route Stop Time Status Admin Albuterol Sulfate 2 PUF BID PRN 03/31 2200 AC INH Amlodipine Besylate 10 MG DAILY 04/03 1000 AC PO Amlodipine Besylate 5 MG DAILY 04/02 1245 DC 04/02 PO 1326 Cabergoline 0.5 MG Mo 04/02 2200 AC 04/02 PO 2145 Cosyntropin 0.25 MG ONE ONE 04/03 0730 DC IV 04/03 0731 Heparin Sodium 5,000 UNIT Q8 03/31 2200 AC 04/03 (Porcine) SC 0614 Levothyroxine Sodium 0.15 MG DAILY AC 04/02 0845 AC 04/03 PO 0614 Nicotine 14 MG DAILY 04/01 1000 AC 04/02 TOP 0935 Sodium Chloride 1,000 ML Q13H 04/01 2100 AC 04/03 IV 0153 Laboratory Tests 04/03/17 0516: Anion Gap 8, Estimated GFR 19 L, BUN/Creatinine Ratio 9.7, Cortisol AM Sample 7.4, CBC w Diff NO MAN DIFF REQ, RBC 3.58 L, MCV 85.4, MCH 28.8, RDW 19.2 H, MPV 7.3 L, Gran % 63.6, Lymphocytes % 19.5 L, Monocytes % 13.6 H, Eosinophils % 3.0, Basophils % 0.3, Absolute Granulocytes 4.4, Absolute Lymphocytes 1.4, Absolute Monocytes 0.9 H, Absolute Eosinophils 0.2, Absolute Basophils 0, PUBS MCHC 33.7 04/02/17 1605: Anion Gap 9, Estimated GFR 19 L, BUN/Creatinine Ratio 9.1, TSH 0.394, Free T4 1.11, Total T3 0.94 L Vital Signs Date Time Temp Pulse Resp B/P B/P Pulse O2 O2 Flow FiO2 Mean Ox Delivery Rate 04/03 0000 94 Room Air 04/02 2341 97.7 78 20 158/96 93 Room Air 04/02 1600 Room Air 04/02 1600 97.5 80 18 160/85 96 Room Air 04/02 1326 88 146/88 04/02 1216 80 156/80 Intake & Output 04/03 1600 04/03 0800 04/03 0000 Intake Total 1400 1960 Output Total 1750 700 Balance -350 1260 Intake, IV 1000 1000 Intake, Oral 400 960 Number 0 0 Bowel Movements Output, Urine 1750 700
[2017-04-03] MEDS ORDERED: NORVASC10 M1 PO (09:31)
[2017-04-03] MEDS ORDERED: NICOTINE PATCH1 EAC2 TOP (09:32)
--- NOTE | 2017-04-03 10:57 | Discharge Summary ---
Visit Information Visit Dates Admission Date: 03/31/17 Discharge Date: 04/04/17 Hospital Course Course Attending Physician: SUNDAY YOUNGBLOOD MD Primary Care Physician: DANIEL AGUILERA MD Hospital Course: Mr. Fletcher is a 61 year old male with PMH significant for depression, anxiety, CHF (stage I diastolic dysfunction, EF 60%), pituitary tumor, viral myocarditis, hypothyroidism, hypertension, chronic venous insufficiency, recent admission to [place] with upper GI bleed who was BIBA after a suicidal attempt and overdose with Xanax and losartan. Utox was positive for Benzo, Barbiturates, Cocaine. Poison control was also contacted for recommendations. Below is the problem list and plan: Suicidal attempt with Xanax and Losartan Patient has history of depression/anxiety/polysubstance abuse. Utox (+) for cocaine, barbiturates and Benzodiazepines. Patient is currently off of his escitalopram (has not gotten this medication per his pharmacy). Recent worsening of symptoms precipitated by financial problems; does not follow with psych as an outpatient. Patient had 1:1 sitter, cannot leave AMA, PEC signed by attending physician. Patient was given one dose of fumazenil in ER. however he remained minimally response with intact neurological functions. Patient was monitored on telemetry floor. Patient was monitored in ICU for symptoms of withdrawal: tremors, anxiety , perceptual disturbances, dysphoria, psychosis and seizures (none noted in the last 24 hours). Patient was on CIWA protocol for acute withdrawal, patient scoring 0-4 Losratan is held on discharge to inpatient psyc due to worsening renal function, creatinine 3.3 on 04/03/17. Patient was monitored for signs of Losartan overdose as tachycardia and hypotension. None was evident. Patient had not been hyperkalemiac. Acute kidney injury on chronic renal dysfunction BUN/creatinine 27 and 3.3 respectively, an acute increase from admission probably due to losartan overdose. Patient is continued on IV hydration. Renal USG was ordered to which showed no hydronephrosis. Bilateral ureteral jets identified. Nephrology consult service on board and cleared to be discharge to inpatient psych. History of GI bleed and anemia Reported dark stools a day before admission, H/H shows anemia, though it remains stable. History of heart failure and HTN Last Echo on 10/17/[address] Hassan: Normal left ventricular wall thickness and normal LV EF at > 60%. Stage 1 diastolic dysfunction. Mild left atrial dilatation. Trace mitral regurgitation. Of note, patient sees Dr. Hassan as an outpatient. EKG unremarkable and troponin negative x0.01, no report of chest pain. Consider restarting furosemide if clinically indicated ( prescribed but the patient is not taking it according to the mother) Hypertension Losartan is held, Patient is started on amlodipine 10 mg and his carvidilol is continued with holding parameters. Chronic cough with history of COPD TRC/Nebs as needed. Consider antibiotics if spikes fever, afebrile. Blood culture shows no growth to date. History of pituitary tumor & hypothyroidism Continue levothyroxine at 0.15 mg PO daily. Home meds confirmed; patient apparently prescribed cabergoline however he has not filled the prescription and has never taken this medication. Endocrinology on board, Cosyntropin test was normal. Patient continued on Carbergoline 0.5mg weekly on Sunday. Smoking Nicotine patch due to smoking. Counseled on tobacco cessation Allergies: Coded Allergies: sulfamethoxazole (From BACTRIM) (Severe, RASH 11/03/16) trimethoprim (From BACTRIM) (Severe, RASH 11/03/16) codeine (Intermediate, VOMITING, FACE NUMBNESS 10/17/16) Disposition Summary Disposition Principal Diagnosis: SUicide attempt Additional Diagnosis: as above Discharge Disposition: other general hospital Discharge Instructions General Discharge Information Code Status: Full Code Patient's Diet: Heart healthy Patient's Activity: as tolerated Follow-Up Instructions/Appts: Please follow up with Psyc upon discharge, Please follow up with endocrinology ad nephrology upon discharge. Daily BEP untill creatinine improves in inpatient psyc unit. Medications at Discharge Discharge Medications: Stop taking the following medications: Furosemide (Furosemide) 20 MG TABLET ORAL DAILY Qty = 30 Losartan Potassium (Losartan Potassium) 100 MG TABLET ORAL DAILY Qty = 90 Alprazolam (Alprazolam) 0.5 MG TABLET ORAL 2 x Daily as needed as needed for ANXIETY Qty = 60 Continue taking these medications: Carvedilol (Carvedilol) 25 MG TABLET 1 Tablet ORAL TWICE DAILY Qty = 180 Comments: Last Taken: 04/04/17 Time: 12:00 PM Levothyroxine Sodium (Levothyroxine Sodium) 150 MCG TABLET 1 Tablet ORAL DAILY BEFORE BREAKFAST Qty = 90 Comments: Last Taken: 5/10/17 Time: 10:30 AM Aspirin (Aspirin*) 81 MG TAB.CHEW 1 Tablet ORAL DAILY Comments: NOT TAKEN IN HOSPITAL Cholecalciferol (Vitamin D3) 1,000 UNIT TABLET 1 Tablet ORAL DAILY Comments: NOT TAKEN IN HOSPITAL Albuterol Sulfate (Ventolin Hfa) 90 MCG HFA.AER.AD 2 Puff Inhale through mouth As Directed as needed for RESPIRATORY Qty = 18 Comments: NOT TAKEN IN HOSPITAL Cabergoline (Cabergoline) 0.5 MG TABLET 0.5 Tablet ORAL 2 times per week Qty = 4 This prescription has been renewed Start taking the following new medications: Amlodipine Besylate (Norvasc) 10 MG TABLET 1 Tablet ORAL DAILY Qty = 1 No Refills Nicotine (Nicotine Patch) 14 MG/24 HOUR PATCH.TD24 1 Milligram On the skin DAILY Qty = 4 No Refills Copies To: PENNY JOHN APRN; SUNDAY YOUNGBLOOD MD; WILLY PEACOCK,DANIEL Jones Attending MD Review Statement Documenting Attending: SUNDAY YOUNGBLOOD MD Other Findings: The patient was seen and agree with plan of care to transfer to [facility]. Creatinine on day of transfer is 3.0. Would follow BEP in 2 days. Avoid nephrotixins. Hopefully Creatinine will return to baseline over next several weeks.
[2017-04-03] MEDS ORDERED: CABERGOLINE0.5 M2 PO (13:21)
--- NOTE | 2017-04-03 13:26 | Patient Discharge Instructions ---
Discharge Instructions General Discharge Information Special Instructions: Patient will be transfered to inpatient psyc unit. Acute Coronary Syndrome Inclusion Criteria At DC or during hospital stay patient has or had the following: ACS DIAGNOSIS No Discharge Core Measures Meds if any: Prescribed or Continued at Discharge Meds if any: NOT Prescribed or Continued at Discharge Congestive Heart Failure Inclusion Criteria At DC or during hospital stay patient has or had the following: CHF DIAGNOSIS No Discharge Core Measures Meds if any: Prescribed or Continued at Discharge Meds if any: NOT Prescribed or Continued at Discharge Cerebrovascular accident Inclusion Criteria At DC or during hospital stay patient has or had the following: CVA/TIA Diagnosis No Discharge Core Measures Meds if any: Prescribed or Continued at Discharge Meds if any: NOT Prescribed or Continued at Discharge Venous thromboembolism Inclusion Criteria VTE Diagnosis No VTE Type NONE VTE Confirmed by (Test) NONE Discharge Core Measures - Per Current guidelines, there needs to be overlap - treatment for the first 5 days of Warfarin therapy. - If discharged on Warfarin prior to 5 days of - overlap therapy, the patient will need to be - assessed for post discharge needs including - *Post discharge parental anticoagulation - *Warfarin and/or parental anticoagulation education - *Follow up date to check INR post discharge At least 5 days overlap therapy as Inpatient No Meds if any: Prescribed or Continued at Discharge Note: Overlap Therapy is Warfarin and Anticoagulant Meds if any: NOT Prescribed or Continued at Discharge
--- NOTE | 2017-04-03 14:50 | PN- Nephrology ---
Assessment/Plan Assessment: 1. Acute kidney injury/CKD secondary to hypotension and losartan overdose - renal function has stabilized but not as yet improved 2. Suicide attempt with benzodiazepine and ARB overdose 3. History of substance abuse 4. Depression Suggestion: 1. Can taper off IV fluids 2. After transfer to a psych unit will need to have his renal function monitored Subjective Subjective: Patient tears up very easily. He has no specific somatic complaints. Renal ultrasound showed no evidence for hydronephrosis. Renal function has essentially stabilized and a creatinine of 3.3 with excellent urine output. Lytes ok. Vital signs are stable. He is apparently to be transferred to an inpatient psych unit either here or elsewhere. Objective Vital Signs and I&Os Vital Signs Date Time Temp Pulse Resp B/P B/P Pulse O2 O2 Flow FiO2 Mean Ox Delivery Rate 04/03 1433 162/98 04/03 0800 Room Air 04/03 0000 94 Room Air 04/02 2341 97.7 78 20 158/96 93 Room Air 04/02 1600 Room Air 04/02 1600 97.5 80 18 160/85 96 Room Air Intake & Output 04/03 1600 04/03 0400 04/02 1600 04/02 0400 04/01 1600 04/01 0400 Intake Total 1400 1960 2805 1800 1350 150 Output Total 3806 599 5837 1100 870 Balance -350 1260 -595 1800 250 -720 Intake, IV 1000 1000 2247 055 8141 150 Intake, Oral 315 232 0016 1200 150 Number 0 0 Bowel Movements Output, Urine 8323 330 2149 1100 870 Patient 312 lb Weight Weight Bed scale Measurement Method Physical Exam: General: Well-developed white male in NAD Skin: No rash or jaundice HEENT: Conjunctivae pink, sclerae anicteric, mucous membranes moist Neck: Without masses or thyromegaly, no supraclavicular or cervical adenopathy Chest: Clear to P&A Heart: Regular rate and rhythm without S3 or rub Abdomen: Soft and nontender without palpable masses or organomegaly Extremities: Without cyanosis; left leg is edematous (1+) with chronic overlying skin changes Neuro: No focal findings, no asterixis or myoclonus Current Medications: Current Medications Sig/Edy Start time Last Medication Dose Route Stop Time Status Admin Albuterol Sulfate 2 PUF BID PRN 03/31 2200 AC INH Amlodipine Besylate 10 MG DAILY 05/09 1000 AC 04/03 PO 1103 Amlodipine Besylate 5 MG DAILY 04/02 1245 DC 04/02 PO 1326 Cabergoline 0.5 MG Mo 04/02 2200 AC 04/02 PO 2145 Carvedilol 25 MG BID 04/03 1300 AC 04/03 PO 1433 Cosyntropin 0.25 MG ONE ONE 04/03 0730 DC 04/03 IV 04/03 0731 0850 Ferrous Sulfate 325 MG DAILY 04/04 1000 AC PO Heparin Sodium 5,000 UNIT Q8 03/31 2200 AC 04/03 (Porcine) SC 1301 Levothyroxine Sodium 0.15 MG DAILY AC 04/02 0845 AC 04/03 PO 0614 Nicotine 14 MG DAILY 04/01 1000 AC 04/03 TOP 1103 Polyethylene Glycol 17 GM DAILY PRN 04/03 1230 AC PO Sodium Chloride 1,000 ML Q13H 04/01 2100 AC 04/03 IV 0153 Results Pertinent Lab Results: Laboratory Tests 04/03 04/03 05 0951 0516 1605 Chemistry Sodium (137 - 145 mmol/L) 142 137 Potassium (3.5 - 5.1 mmol/L) 4.6 4.7 Chloride (98 - 107 mmol/L) 112 H 106 Carbon Dioxide (22 - 30 mmol/L) 22 22 Anion Gap (5 - 16) 8 9 BUN (9 - 20 mg/dL) 32 H 31 H Creatinine (0.7 - 1.2 mg/dL) 3.3 H 3.4 H Estimated GFR (>60 ml/min) 19 L 19 L BUN/Creatinine Ratio (7 - 25 %) 9.7 9.1 TSH (0.270 - 4.200 uIU/mL) 0.394 Free T4 (0.64 - 1.79 ng/dL) 1.11 Total T3 (0.97 - 1.69 ng/mL) 0.94 L Cortisol AM Sample (4.46 - 22.7 ug/dL) 47.7 H 7.4 Hematology CBC w Diff NO MAN DIFF REQ WBC (4.8 - 10.8 /CUMM) 7.0 RBC (4.70 - 6.10 /CUMM) 3.58 L Hgb (14.0 - 18.0 G/DL) 10.3 L Hct (42 - 52 %) 30.6 L MCV (80.0 - 94.0 FL) 85.4 MCH (27.0 - 31.0 PG) 28.8 RDW (11.5 - 14.5 %) 19.2 H Plt Count (130 - 400 /CUMM) 185 MPV (7.4 - 10.4 FL) 7.3 L Gran % (42.2 - 75.2 %) 63.6 Lymphocytes % (20.5 - 51.1 %) 19.5 L Monocytes % (1.7 - 9.3 %) 13.6 H Eosinophils % (0 - 5 %) 3.0 Basophils % (0.0 - 2.0 %) 0.3 Absolute Granulocytes (1.4 - 6.5 /CUMM) 4.4 Absolute Lymphocytes (1.2 - 3.4 /CUMM) 1.4 Absolute Monocytes (0.10 - 0.60 /CUMM) 0.9 H Absolute Eosinophils (0.0 - 0.7 /CUMM) 0.2 Absolute Basophils (0.0 - 0.2 /CUMM) 0 PUBS MCHC (33.0 - 37.0 G/DL) 33.7 05/08 05/07 0440 0445 Chemistry Sodium (137 - 145 mmol/L) 140 136 L Potassium (3.5 - 5.1 mmol/L) 4.3 4.2 Chloride (98 - 107 mmol/L) 108 H 105 Carbon Dioxide (22 - 30 mmol/L) 25 23 Anion Gap (5 - 16) 6 8 BUN (9 - 20 mg/dL) 27 H 24 H Creatinine (0.7 - 1.2 mg/dL) 3.3 H 2.1 H Estimated GFR (>60 ml/min) 19 L 32 L BUN/Creatinine Ratio (7 - 25 %) 11.4 Glucose (65 - 99 mg/dL) 99 Calcium (8.4 - 10.2 mg/dL) 8.5 Phosphorus (2.5 - 4.5 mg/dL) 3.6 Magnesium (1.6 - 2.3 mg/dL) 2.0 Iron (49 - 181 ug/dL) 34 L TIBC (261 - 462 ug/dL) 284 % Saturation (16 - 45 %) 11 L Ferritin (17.9 - 464 ng/mL) 32.3 Total Bilirubin (0.2 - 1.3 mg/dL) 0.3 AST (17 - 59 U/L) 20 ALT (21 - 72 U/L) 32 Creatine Kinase (55 - 170 U/L) 41 L Albumin (3.5 - 5.0 g/dL) 3.1 L Prolactin (3.7 - 17.9 ng/mL) 95.2 H Hematology CBC w Diff NO MAN DIFF REQ WBC (4.8 - 10.8 /CUMM) 9.3 RBC (4.70 - 6.10 /CUMM) 3.84 L Hgb (14.0 - 18.0 G/DL) 10.9 L Hct (42 - 52 %) 32.8 L MCV (80.0 - 94.0 FL) 85.2 MCH (27.0 - 31.0 PG) 28.5 RDW (11.5 - 14.5 %) 19.4 H Plt Count (130 - 400 /CUMM) 193 MPV (7.4 - 10.4 FL) 7.6 Gran % (42.2 - 75.2 %) 72.7 Lymphocytes % (20.5 - 51.1 %) 14.4 L Monocytes % (1.7 - 9.3 %) 11.2 H Eosinophils % (0 - 5 %) 1.5 Basophils % (0.0 - 2.0 %) 0.2 Absolute Granulocytes (1.4 - 6.5 /CUMM) 6.8 H Absolute Lymphocytes (1.2 - 3.4 /CUMM) 1.3 Absolute Monocytes (0.10 - 0.60 /CUMM) 1.0 H Absolute Eosinophils (0.0 - 0.7 /CUMM) 0.1 Absolute Basophils (0.0 - 0.2 /CUMM) 0 PUBS MCHC (33.0 - 37.0 G/DL) 33.4 03/31 Blood Gas pH (7.35 - 7.45 PH) 7.35 pCO2 (35 - 45 TORR) 40 pO2 (80 - 100 TORR) 62 L HCO3 (21 - 28 MEQ/L) 22 ABG O2 Sat (Measured) (>96.0 %) 88.0 L P-50 (Temp Corrected) Y Carboxyhemoglobin (1.5 - 5.0 %) 3.1 O2 Concentration % 3L Temperature (97.0 - 100.0 FARH) 95.8 L O2 Delivery Method NC Chemistry Sodium (137 - 145 mmol/L) 138 Potassium (3.5 - 5.1 mmol/L) 4.7 Chloride (98 - 107 mmol/L) 104 Carbon Dioxide (22 - 30 mmol/L) 25 Anion Gap (5 - 16) 9 BUN (9 - 20 mg/dL) 23 H Creatinine (0.7 - 1.2 mg/dL) 1.6 H Estimated GFR (>60 ml/min) 44 L Glucose (65 - 99 mg/dL) 101 H Calcium (8.4 - 10.2 mg/dL) 9.0 Phosphorus (2.5 - 4.5 mg/dL) 4.8 H Magnesium (1.6 - 2.3 mg/dL) 1.8 Total Bilirubin (0.2 - 1.3 mg/dL) 0.5 AST (17 - 59 U/L) 19 ALT (21 - 72 U/L) 42 Albumin (3.5 - 5.0 g/dL) 3.3 L Hematology CBC w Diff NO MAN DIFF REQ WBC (4.8 - 10.8 /CUMM) 8.7 RBC (4.70 - 6.10 /CUMM) 3.95 L Hgb (14.0 - 18.0 G/DL) 11.0 L Hct (42 - 52 %) 33.8 L MCV (80.0 - 94.0 FL) 85.6 MCH (27.0 - 31.0 PG) 27.9 RDW (11.5 - 14.5 %) 19.5 H Plt Count (130 - 400 /CUMM) 214 MPV (7.4 - 10.4 FL) 7.6 Gran % (42.2 - 75.2 %) 72.9 Lymphocytes % (20.5 - 51.1 %) 12.7 L Monocytes % (1.7 - 9.3 %) 12.3 H Eosinophils % (0 - 5 %) 1.8 Basophils % (0.0 - 2.0 %) 0.3 Absolute Granulocytes (1.4 - 6.5 /CUMM) 6.3 Absolute Lymphocytes (1.2 - 3.4 /CUMM) 1.1 L Absolute Monocytes (0.10 - 0.60 /CUMM) 1.1 H Absolute Eosinophils (0.0 - 0.7 /CUMM) 0.2 Absolute Basophils (0.0 - 0.2 /CUMM) 0 PUBS MCHC (33.0 - 37.0 G/DL) 32.6 L Miscellaneous Phlebotomy Draw Site RIGHT RADIAL
--- NOTE | 2017-04-03 15:44 | NUR ---
NURSING NOTE: PT IS A7OX3. GENERALLY PLEASANT TODAY. WHILE SPEAKING WITH MOTHER DID GET MORE ANGRY/AGGRESIVE TOWORD HER. fREIND CAME IN AT 1400 AND PT DID BECOME EMOTIONAL AND CRYING. PT IS GEN MED HOLD. BP ELEVATED 160'S/90'S NORVASC GIVEN AND COREG STARTED/ COREG 25 MG GIVEN AT 1400. NO BM SINCE ADMISSION. PT GIVEN MIRALAX AT 1530. PT ON NS AT 125 UNTIL 1400 WHEN DECREASED TO 50ML/HR. URINE OUTPUT GOOD. CLEAR PALE YELLOW URIN. OUTPUT 2000 ML.
[2017-04-03 16:00] VITALS: BP 142/92
[2017-04-03 21:31] VITALS: BP 142/66
[2017-04-03 22:12] VITALS: BP 144/88
--- NOTE | 2017-04-04 07:14 | PN- Housestaff ---
See Addendum Subjective Follow-up For: Xanax overdose Losartan overdose Acute on chronic kidney injury Suicidal ideation and suicidal attempt Pituitary tumor on cabergoline once a week Subjective: Hemodynamically stable. No overnight events reported. Looks relaxed uncomfortable. Patient is complaining of a mild bilateral flank discomfort, he denies any other active complaints. Review of Systems Constitutional: Denies: chills, fever, malaise, weakness. EENTM: Denies: visual changes. Cardiovascular: Denies: chest pain, palpitations. Respiratory: Denies: cough, short of breath. Gastrointestinal: Denies: abdominal pain, constipation, diarrhea, nausea, vomiting. Genitourinary: Reports: no symptoms. Objective Last 24 Hrs of Vital Signs/I&O Vital Signs Date Time Temp Pulse Resp B/P B/P Pulse O2 O2 Flow FiO2 Mean Ox Delivery Rate 04/04 1212 65 150/86 04/04 1211 65 150/86 04/04 0828 98.2 66 20 148/80 97 Room Air 04/03 2212 99.3 70 18 144/88 96 Room Air 04/03 2131 98.9 77 20 142/66 98 Room Air 04/03 1600 98.8 78 20 142/92 96 Room Air 04/03 1433 162/98 Intake & Output 04/04 1600 04/04 0800 04/04 0000 Intake Total Output Total Balance Patient 136.078 kg Weight Physical Exam General Appearance: Alert, Oriented X3, Cooperative, No Acute Distress Skin: No Rashes HEENT: Atraumatic, PERRLA, EOMI, Mucous Membr. moist/pink Cardiovascular: Regular Rate, Normal S1, Normal S2, No Murmurs Lungs: Clear to Auscultation Abdomen: Soft, No Tenderness Neurological: Normal Speech Extremities: No Clubbing, No Cyanosis, No Edema Current Medications: Current Medications Sig/Edy Start time Last Medication Dose Route Stop Time Status Admin Albuterol Sulfate 2 PUF BID PRN 03/31 2200 AC INH Amlodipine Besylate 10 MG DAILY 04/03 1000 AC 04/04 PO 121 Cabergoline 0.5 MG Mo 04/02 2200 AC 04/02 PO 2145 Carvedilol 25 MG BID 04/03 1300 AC 04/04 PO 1212 Ferrous Sulfate 325 MG DAILY 04/04 1000 AC 04/04 PO 1211 Heparin Sodium 5,000 UNIT Q8 03/31 2200 AC 04/04 (Porcine) SC 0608 Levothyroxine Sodium 0.15 MG DAILY AC 04/02 0845 AC 04/04 PO 1034 Nicotine 14 MG DAILY 04/01 1000 AC 04/04 TOP 1034 Polyethylene Glycol 17 GM DAILY PRN 04/03 1230 AC 04/03 PO 1538 Sodium Chloride 1,000 ML Q13H 04/01 2100 DC 04/03 IV 0153 Last 24 Hrs of Lab/[place] Results Last 24 Hrs of Labs/Mics: Laboratory Tests 04/04/17 0625: Anion Gap 10, Estimated GFR 22 L, BUN/Creatinine Ratio 9.3, CBC w Diff NO MAN DIFF REQ, RBC 3.46 L, MCV 84.9, MCH 28.9, RDW 18.8 H, MPV 7.8, Gran % 61.0, Lymphocytes % 23.6, Monocytes % 12.4 H, Eosinophils % 2.5, Basophils % 0.5, Absolute Granulocytes 4.2, Absolute Lymphocytes 1.6, Absolute Monocytes 0.8 H, Absolute Eosinophils 0.2, Absolute Basophils 0, PUBS MCHC 34.0 Assessment/Plan Assessment: Mr. Fletcher is a 61 year old male with PMH significant for depression, anxiety, CHF (stage I diastolic dysfunction, EF 60%), pituitary tumor, viral myocarditis, hypothyroidism, hypertension, chronic venous insufficiency, recent admission to [place] with upper GI bleed who was BIBA after a suicidal attempt and overdose with Xanax and losartan. Utox was positive for Benzo, Barbiturates, Cocaine. Poison control was also contacted for recommendations. Below is the problem list and plan: #Benzodiazepine poisoning * Continue to monitor airway and O2 saturation, patient currently on room air saturating well, provice O2 via NC to keep O2>92% * Monitor for symptoms of withdrawal: tremors, anxiety, perceptual disturbances, dysphoria, psychosis and seizures (none noted in the last 24 hours) * Neurochecks Q4 * WA protocol for acute withdrawal, patient scoring 0-5 #Losartan overdose * BP 107/61 on admission, currently elevated to systolic 150s/90s * Continue 10 mg by mouth amlodipine * No signs of angioedema after ARB overdose * Potassium is 4.7 this morning #Acute kidney injury on chronic renal dysfunction * Likely 2/2 losartan toxicity * BUN/creatinine 28 and 3 respectively this am * We will encourage fluid intake * Continue to hold losartan * Renal US ruled out obstruction/hydronephrosis * Nephro consult appreciated, will continue to follow recommendations #Suicidal ideation and suicidal attempt * History of depression/anxiety/polysubstance abuse * Utox (+) for cocaine, barbiturates and Benzodiazepines * Patient is currently off of his escitalopram (has not gotten this medication per his pharmacy) * Recent worsening of symptoms precipitated by financial problems; does not follow with psych as an outpatient * Continue 1:1 sitter, cannot leave AMA, PEC signed by attending physician today , patient will be transferred to an inpatient psychiatric unit once bed available * Social work consult placed (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 Hassan: Normal left ventricular wall thickness and normal LV EF at > 60%. Stage 1 diastolic dysfunction. Mild left atrial dilatation. Trace mitral regurgitation. Of note, patient sees Dr. Hassan as an outpatient. * EKG unremarkable and troponin negative x0.01, no report of chest pain. * Consider restarting furosemide if clinically indicated (prescribed but the patient is not taking it according to the mother) #Chronic cough with history of COPD * TRC/Nebs as needed * Consider antibiotics if spikes fever, afebrile today. * Blood culture shows no growth to date, follow up final results * LRC pending #History of pituitary tumor & hypothyroidism * Continue levothyroxine at 0.15 mg PO daily * Continue cabergoline 0.5 mg PO once a week * Cosyntropin stimulation test shows normal results as 1 hour follow up cortisol >18 * Close follow up to endo upon discharge #Smoking * Nicotine patch due to smoking * Counseled on tobacco cessation Regular diet DVTP: Heparin SC FULL CODE Problem List: 1. SUZI (acute kidney injury) 2. Overdose of drug Pain Ratin Pain Location: back Pain Goal: Remain pain free Pain Plan: See A&P Tomorrow's Labs & Rationales: BEP
--- NOTE | 2017-04-04 07:39 | PN- Endocrinology ---
Assessment/Plan Assessment: The patient states he feels a little better. Mood seems better. Patient's most recent labs show a TSH of 0.394 free T4 1 0.1. His prolactin is 95.2. His a.m. cortisol this morning is 7.4 which is in the normal range but not high enough to rule out adrenal insufficiency. Patient underwent a Cortrosyn stimulation test yesterday. His stimulated cortisol was 47.7 which is a very good response. This rules out adrenal insufficiency. The patient's creatinine has leveled off at 3.3. Today's labs are pending. Plan: Was no evidence of adrenal insufficiency. Suggest continue the present medication. Hopefully his kidney tests will be better today. Subjective Subjective: Feels better Review of Systems Constitutional: Denies: chills, fever. Cardiovascular: Denies: chest pain, palpitations. Respiratory: Denies: short of breath. Gastrointestinal: Denies: abdominal pain. Skin: Reports: no symptoms. Objective Last 24 Hrs of Vital Signs/I&O Vital Signs Date Time Temp Pulse Resp B/P B/P Pulse O2 O2 Flow FiO2 Mean Ox Delivery Rate 04/03 2212 99.3 70 18 144/88 96 Room Air 04/031 98.9 77 20 142/66 98 Room Air 04/03 1600 98.8 78 20 142/92 96 Room Air 04/03 1433 162/98 05 0800 Room Air 04/03 0800 98.6 108 18 180/98 95 Intake & Output 04/04 800 05 0000 05 1600 Intake Total Output Total Balance Patient 300 lb Weight Vital Signs Date Time Temp Pulse Resp B/P B/P Pulse O2 O2 Flow FiO2 Mean Ox Delivery Rate 04/03 2212 99.3 70 18 144/88 96 Room Air 04/031 98.9 77 20 142/66 98 Room Air 04/03 1600 98.8 78 20 142/92 96 Room Air 04/03 1433 162/98 04/03 0800 Room Air 04/03 0800 98.6 108 18 180/98 95 Intake & Output 04/04 0800 05 0000 05 1600 Intake Total Output Total Balance Patient 300 lb Weight Physical Exam General Appearance: alert, awake, comfortable Head: normal appearance Respiratory: normal breath sounds Cardiovascular: regular rate/rhythm Abdomen: normal bowel sounds Extremities: stasis dermatitis Current Medications: Current Medications Sig/Edy Start time Last Medication Dose Route Stop Time Status Admin Albuterol Sulfate 2 PUF BID PRN 03/31 2200 AC INH Amlodipine Besylate 10 MG DAILY 04/03 1000 AC 04/03 PO 1103 Amlodipine Besylate 5 MG DAILY 04/02 1245 DC 04/02 PO 1326 Cabergoline 0.5 MG Mo 04/02 2200 AC 04/02 PO 2145 Carvedilol 25 MG BID 04/03 1300 AC 04/03 PO 2146 Ferrous Sulfate 325 MG DAILY 04/04 1000 AC PO Heparin Sodium 5,000 UNIT Q8 03/31 2200 AC 04/04 (Porcine) SC 0608 Levothyroxine Sodium 0.15 MG DAILY AC 04/02 0845 AC 04/03 PO 0614 Nicotine 14 MG DAILY 04/01 1000 AC 04/03 TOP 1103 Polyethylene Glycol 17 GM DAILY PRN 04/03 1230 AC 04/03 PO 1538 Sodium Chloride 1,000 ML Q13H 04/01 2100 DC 04/03 IV 0153 Results Pertinent Lab/[place] Results: Laboratory Tests 04/04 04/03 0625 0951 Chemistry Sodium Pending Potassium Pending Chloride Pending Carbon Dioxide Pending Anion Gap Pending BUN Pending Creatinine Pending BUN/Creatinine Ratio Pending Cortisol AM Sample (4.46 - 22.7 ug/dL) 47.7 H Hematology CBC w Diff Pending WBC Pending RBC Pending Hgb Pending Hct Pending MCV Pending MCH Pending RDW Pending Plt Count Pending MPV Pending PUBS MCHC Pending
[2017-04-04 07:48] LABS: ABSOLUTE BASOPHIL COUNT 0 /CUMM (0.0-0.2); ABSOLUTE EOSINOPHIL COUNT 0.2 /CUMM (0.0-0.7); ABSOLUTE GRANULOCYTE CT 4.2 /CUMM (1.4-6.5); ABSOLUTE LYMPH COUNT 1.6 /CUMM (1.2-3.4); ABSOLUTE MONOCYTE COUNT 0.8 /CUMM (0.10-0.60); BASOPHIL % 0.5 % (0.0-2.0); EOSINOPHIL % 2.5 % (0-5); HEMATOCRIT 29.4 % (42-52); MEAN CORPUSCULAR HGB 28.9 PG (27.0-31.0); MEAN CORPUSCULAR VOLUME 84.9 FL (80.0-94.0); MEAN PLATELET VOLUME 7.8 FL (7.4-10.4); PLATELET COUNT 187 /CUMM (130-400); RBC DISTRIBUTION WIDTH 18.8 % (11.5-14.5); RED BLOOD CELL CT 3.46 /CUMM (4.70-6.10); WHITE BLOOD CELL COUNT 6.8 /CUMM (4.8-10.8)
[2017-04-04 08:28] VITALS: BP 148/80
--- NOTE | 2017-04-04 13:41 | PN- Nephrology ---
Assessment/Plan Assessment: 1. Acute kidney injury/CKD secondary to hypotension and losartan overdose - renal function now improving 2. Suicide attempt with benzodiazepine and ARB overdose 3. History of substance abuse 4. Depression Suggestion: 1. Okay from renal standpoint to transfer to psych unit 2. Will need to continue to monitor chemistries daily for now Subjective Subjective: Patient feeling quite well and claims that he is no longer depressed nor really in need of further psychiatric intervention. Nevertheless, he accepts the fact that he will be transferred to inpatient psych later today. He is taking by mouth well and has no specific complaints. Renal function now starting to improve with creatinine down to 3.0. Objective Vital Signs and I&Os Vital Signs Date Time Temp Pulse Resp B/P B/P Pulse O2 O2 Flow FiO2 Mean Ox Delivery Rate 04/04 1212 65 150/86 04/04 1211 65 150/86 04/04 0828 98.2 66 20 148/80 97 Room Air 04/03 2212 99.3 70 18 144/88 96 Room Air 04/03 2131 98.9 77 20 142/66 98 Room Air 04/03 1600 98.8 78 20 142/92 96 Room Air 04/03 1433 162/98 Intake & Output 04/04 1600 04/04 0400 04/03 1600 04/03 0400 04/02 1600 04/02 0400 Intake Total 1400 1960 2805 1800 Output Total 8082 161 3101 Balance -350 1260 -595 1800 Intake, IV 1000 1000 1625 600 Intake, Oral 196 333 0877 1200 Number 0 0 Bowel Movements Output, Urine 0842 473 7366 Patient 300 lb Weight Physical Exam: General: Well-developed white male in NAD Skin: No rash or jaundice HEENT: Conjunctivae pink, sclerae anicteric, mucous membranes moist Neck: Without masses or thyromegaly, no supraclavicular or cervical adenopathy Chest: Clear to P&A Heart: Regular rate and rhythm without S3 or rub Abdomen: Soft and nontender without palpable masses or organomegaly Extremities: Without cyanosis; left leg is edematous (tr-1+) with chronic overlying skin changes Neuro: No focal findings, no asterixis or myoclonus Current Medications: Current Medications Sig/Edy Start time Last Medication Dose Route Stop Time Status Admin Albuterol Sulfate 2 PUF BID PRN 03/31 220 AC INH Amlodipine Besylate 10 MG DAILY 04/03 1000 AC 04/04 PO 1211 Cabergoline 0.5 MG Mo 04/02 2200 AC 04/02 PO 2145 Carvedilol 25 MG BID 04/03 1300 AC 04/04 PO 1212 Ferrous Sulfate 325 MG DAILY 04/04 1000 AC 04/04 PO 1211 Heparin Sodium 5,000 UNIT Q8 03/31 2200 AC 04/04 (Porcine) SC 0608 Levothyroxine Sodium 0.15 MG DAILY AC 04/02 0845 AC 04/04 PO 1034 Nicotine 14 MG DAILY 04/01 1000 AC 04/04 TOP 1034 Polyethylene Glycol 17 GM DAILY PRN 04/03 1230 AC 04/03 PO 1538 Sodium Chloride 1,000 ML Q13H 04/01 2100 DC 04/03 IV 0153 Results Pertinent Lab Results: Laboratory Tests 04/04 04/03 0625 0951 Chemistry Sodium (137 - 145 mmol/L) 144 Potassium (3.5 - 5.1 mmol/L) 4.7 Chloride (98 - 107 mmol/L) 110 H Carbon Dioxide (22 - 30 mmol/L) 24 Anion Gap (5 - 16) 10 BUN (9 - 20 mg/dL) 28 H Creatinine (0.7 - 1.2 mg/dL) 3.0 H Estimated GFR (>60 ml/min) 22 L BUN/Creatinine Ratio (7 - 25 %) 9.3 Cortisol AM Sample (4.46 - 22.7 ug/dL) 47.7 H Hematology CBC w Diff NO MAN DIFF REQ WBC (4.8 - 10.8 /CUMM) 6.8 RBC (4.70 - 6.10 /CUMM) 3.46 L Hgb (14.0 - 18.0 G/DL) 10.0 L Hct (42 - 52 %) 29.4 L MCV (80.0 - 94.0 FL) 84.9 MCH (27.0 - 31.0 PG) 28.9 RDW (11.5 - 14.5 %) 18.8 H Plt Count (130 - 400 /CUMM) 187 MPV (7.4 - 10.4 FL) 7.8 Gran % (42.2 - 75.2 %) 61.0 Lymphocytes % (20.5 - 51.1 %) 23.6 Monocytes % (1.7 - 9.3 %) 12.4 H Eosinophils % (0 - 5 %) 2.5 Basophils % (0.0 - 2.0 %) 0.5 Absolute Granulocytes (1.4 - 6.5 /CUMM) 4.2 Absolute Lymphocytes (1.2 - 3.4 /CUMM) 1.6 Absolute Monocytes (0.10 - 0.60 /CUMM) 0.8 H Absolute Eosinophils (0.0 - 0.7 /CUMM) 0.2 Absolute Basophils (0.0 - 0.2 /CUMM) 0 PUBS MCHC (33.0 - 37.0 G/DL) 34.0 04/03 04/02 04/02 0516 1605 0440 Chemistry Sodium (137 - 145 mmol/L) 142 137 140 Potassium (3.5 - 5.1 mmol/L) 4.6 4.7 4.3 Chloride (98 - 107 mmol/L) 112 H 106 108 H Carbon Dioxide (22 - 30 mmol/L) 22 22 25 Anion Gap (5 - 16) 8 9 6 BUN (9 - 20 mg/dL) 32 H 31 H 27 H Creatinine (0.7 - 1.2 mg/dL) 3.3 H 3.4 H 3.3 H Estimated GFR (>60 ml/min) 19 L 19 L 19 L BUN/Creatinine Ratio (7 - 25 %) 9.7 9.1 Glucose (65 - 99 mg/dL) 99 Calcium (8.4 - 10.2 mg/dL) 8.5 Phosphorus (2.5 - 4.5 mg/dL) 3.6 Magnesium (1.6 - 2.3 mg/dL) 2.0 Iron (49 - 181 ug/dL) 34 L TIBC (261 - 462 ug/dL) 284 % Saturation (16 - 45 %) 11 L Ferritin (17.9 - 464 ng/mL) 32.3 Total Bilirubin (0.2 - 1.3 mg/dL) 0.3 AST (17 - 59 U/L) 20 ALT (21 - 72 U/L) 32 Creatine Kinase (55 - 170 U/L) 41 L Albumin (3.5 - 5.0 g/dL) 3.1 L TSH (0.270 - 4.200 uIU/mL) 0.394 Free T4 (0.64 - 1.79 ng/dL) 1.11 Total T3 (0.97 - 1.69 ng/mL) 0.94 L Prolactin (3.7 - 17.9 ng/mL) 95.2 H Cortisol AM Sample (4.46 - 22.7 ug/dL) 7.4 Hematology CBC w Diff NO MAN DIFF REQ WBC (4.8 - 10.8 /CUMM) 7.0 RBC (4.70 - 6.10 /CUMM) 3.58 L Hgb (14.0 - 18.0 G/DL) 10.3 L Hct (42 - 52 %) 30.6 L MCV (80.0 - 94.0 FL) 85.4 MCH (27.0 - 31.0 PG) 28.8 RDW (11.5 - 14.5 %) 19.2 H Plt Count (130 - 400 /CUMM) 185 MPV (7.4 - 10.4 FL) 7.3 L Gran % (42.2 - 75.2 %) 63.6 Lymphocytes % (20.5 - 51.1 %) 19.5 L Monocytes % (1.7 - 9.3 %) 13.6 H Eosinophils % (0 - 5 %) 3.0 Basophils % (0.0 - 2.0 %) 0.3 Absolute Granulocytes (1.4 - 6.5 /CUMM) 4.4 Absolute Lymphocytes (1.2 - 3.4 /CUMM) 1.4 Absolute Monocytes (0.10 - 0.60 /CUMM) 0.9 H Absolute Eosinophils (0.0 - 0.7 /CUMM) 0.2 Absolute Basophils (0.0 - 0.2 /CUMM) 0 PUBS MCHC (33.0 - 37.0 G/DL) 33.7
[2017-04-04 15:47] VITALS: BP 140/80
--- NOTE | 2017-04-04 20:33 | NUR ---
Late Entry: Referral received on 04/02/17. This patient is a 61 year old man, admitted to the hospital on 03/31/17 after an overdose of benzos. Patient was initially treated in the [facility]; was transferrd [facility], and plan is for voluntary admission to inpatient psychiatry. 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 I met with Harrison this afternoon. He was alert, pleasant, and cooperative with interview. Rock reports that while he is hospitalized, his mother is alone, with the exception of a visit each evening from his sister (the patients daughter). I asked Rock for permission to speak with his sister, and permission was granted. Sister Angel was contacted. She confirms that their mother is alone much of the time, but there are neighbors who do look in on her, and, patient has refused to allow home care assistance at this time; has declined Angel's offer of assistance either mom moving to Angel's house (Angel also has MS) or allowing Angel. I spoke with Angel about EPS; I do not believe that patients mother is at imminent danger,but I have asked Angel to consider allowing a referral which may prove to be able to offer assistance to patients mother.
== END 2017-04-04 19:00 | DRG 917 ==
LOC: ERH 13:10 → ERHI 15:39 → CRI 15:39 → ENRESERV 18:50 → CRI 21:09 → 1NO 04-03 22:09
PROVIDERS: Emergency Medicine; Internal Medicine; Student in an Organized Health Care Education/Training Program; ADMIT Internal Medicine
DX: T42.4X2A Poisoning by benzodiazepines, intentional self-harm, initial encounter (principal); J96.01 Acute respiratory failure with hypoxia; T68.XXXA Hypothermia, initial encounter; N17.9 Acute kidney failure, unspecified; I50.32 Chronic diastolic (congestive) heart failure; I11.0 Hypertensive heart disease with heart failure; I87.2 Venous insufficiency (chronic) (peripheral); E66.9 Obesity, unspecified; F32.9 Major depressive disorder, single episode, unspecified; E03.9 Hypothyroidism, unspecified; E55.9 Vitamin D deficiency, unspecified; F17.200 Nicotine dependence, unspecified, uncomplicated; J44.9 Chronic obstructive pulmonary disease, unspecified; D35.2 Benign neoplasm of pituitary gland
CPT/HCPCS: 1NSP; CCU; 36415; 76775; 80307; 81001; 82436; 87040; 87070; 87086; 93005; 93010; 96374; 97116-GO; 97161-GP; G0480; J0834; J1644; J3490; J8515

== ENCOUNTER 2017-04-04 13:24 | Inpatient (IN) | payer OTHER, MEDICARE ==
[~2017-04-04] VITALS: Ht 170.2 cm; Wt 143.8 kg
[~2017-04-04 13:24] MED LIST changes: +NICOTINE PATCH1 EAC2 TOP; +NORVASC10 M1 PO; +VENTOLIN HFA18 GM INH
--- NOTE | 2017-04-04 13:46 | IP CRISIS DIAG ASSESS PSYCH ---
Diagnostic Assessment Basic Assessment Insurance Authorization: Insurance #1: Insurance name: [employer] Phone number: Policy number: [id number] Group number: Authorization number: Primary Care Physician: Patient's PCP: DANIEL AGUILERA MD PCP's Patient's Quote: "I'm ready" Present Illness: 61-year-old single male brought in by ambulance unresponsive to [facility] emergency department on 03/31/2017 status post overdose attempts with Xanax and losartan. Per report approximately 60 Xanax and 20 losartan consumed at approximately noon on that date. He then shouted from his bedroom to his mother that he had ingested the medications He had an argument with his mother who he lives with, and stated he was going to kill himself. This was apparently related to financial difficulties. His mother tried to convince him several times to come to the ED but he refused until he started to become short of breath with altered mentation. EMS brought the patient in the ED, he was given Romazicon after which he became more alert. Per family report patient has a life long history of depression, not currently taking any medication for it. He has previously been prescribed Lexapro as well as Depakote. On initial evaluation by Dr. Salas the patient reported that he had lost his job 5 months ago, he was unable to pay his bills including mortgage and electric and became increasingly hopeless about the situation. In the context of his increasing depression he used crack cocaine and conflict with his family worsened. He smoked crack immediately prior to OD. When he awoke in the hospital he reported being "very disappointed," continued wishing for stating, "I want to try again; I want another chance to do it." 1:1 sitter was initiated, PEC was written, and pt was transfered to ICU. On reevaluation on 04/02/17 patient states "I'm not depressed... I don't want to go to inpatient psychiatry and all feel like it's going to help me I just got overwhelmed because of my bills." Patient reports he is fearful no one is going to be able to take care of his mom or his Is endorsing high anxiety regarding this and asking for discharge. He verbalizes understanding of the seriousness of suicide attempt and denies that he would ever attempt suicide again. He pleads to not have to stay in the hospital but verbalized understanding of needing inpatient psychiatric stay. Over the following 2 days patient becomes more agreeable to ideal hospitalization however remains ambivalent towards the idea of taking psychotropic medication or follow-up psychiatric care. He denies any mood disturbance and at times he appears somewhat elevated. [facility] [address] Other Who Do You Live With? Mother Feel Safe Where You Live? Yes Feel Safe in Your Relationship Yes Marital Status: single Do You Have Children? No Primary Language? Gabonese Language(s) Spoken At Home: Gabonese Family/Informants Interviewed: Mother and sister provided collateral information Allergies - Coded Allergies: sulfamethoxazole (From BACTRIM) (Severe, RASH 11/03/16) trimethoprim (From BACTRIM) (Severe, RASH 11/03/16) codeine (Intermediate, VOMITING, FACE NUMBNESS 10/17/16) Current Medications - Scheduled Medications Aspirin (Aspirin*) 81 MG TAB.CHEW 1 TAB PO DAILY HEART HEALTH (Reported) Entered as Reported by MARITZA GARNER on 10/17/16 1241 Carvedilol 25 MG TABLET 1 TAB PO BID HEART #180 (Reported) Entered as Reported by MARITZA GARNER on 10/17/16 1239 Cholecalciferol (Vitamin D3) 1,000 UNIT TABLET 1 TAB PO DAILY SUPPLEMENT ( Reported) Entered as Reported by MARITZA GARNER on 10/17/16 1242 Furosemide 20 MG TABLET 1 TAB PO DAILY WATER PILL #30 (Reported) Entered as Reported by MARITZA GARNER on 10/17/16 1240 Levothyroxine Sodium 150 MCG TABLET 1 TAB PO DAILY AC THYROID #90 (Reported) Entered as Reported by MARITZA GARNER on 10/17/16 1240 Losartan Potassium 100 MG TABLET 1 TAB PO DAILY HEART #90 (Reported) Entered as Reported by MARITZA GARNER on 10/17/16 1240 Scheduled PRN Medications Albuterol Sulfate (Ventolin Hfa) 90 MCG HFA.AER.AD 2 PUF INH AD PRN RESPIRATORY #18 (Reported) Entered as Reported by ALFREDO PAIZ on 03/31/17 1703 Alprazolam 0.5 MG TABLET 1 TAB PO BIDP PRN ANXIETY #60 (Reported) Entered as Reported by MARITZA GARNER on 10/17/16 1241 Discontinued Medications Cabergoline 0.5 MG TABLET 0.5 TAB PO 2XW UNKNOWN #4 (Reported) Discontinued reason: Bleeding Risk Lab Results: (see lifetime summary) Toxicology Screen Completed? Yes Results: positive (coke, dwain, BZD) Symptoms of Use: Poor impulse control Past History Past Medical History Medical History: CHF, Hypertension, Hypothyroidism, Kidney disease, Psychiatric history Past Surgical History Surgical History BENIGN BREAST TUMORS CYSTS FROM HEAD Abuse/Trauma History Trauma History/Current Trauma: Denies Legal History Current Legal Status: none Have you ever been arrested? No Number of Arrests: 0 Psychosocial History Strengths/Capabilities: able to communicate, Expresses desire to get treatment Physical Limitations (Interventions): Poor insight, multiple medical illnesses Psychiatric Treatment History Psych Treatment Psychiatric Treatment Yes Diagnosis by History: Major Depressive Disorder R/O Substance-induced mood disorder Cocaine (crack) use disorder Nicotine Dependence Risk Factors: access to lethal means, chronic/serious med cond., high anxiety/ distress, SA/MH hospitalized, substance abuse, isolate/no social support, poor impulse control, lack of outcome concern, male, limited support Substance Use/Abuse History Drug Use/Abuse minimum 12mo Hx Substances Used/Abused Yes (Crack daily x 30 years) Substance Abuse Treatment Substance Abuse Treatment Past Substance Abuse [place] No Sexual History Sexually Active No # of partners 0 Sexual Orientation Heterosexual Current Mental Status Mental Status Orientation: Person, Place, Situation Affect: Broad (?elevated), Variable Speech: WNL Neuro-vegetative: Sleep Disturbance Appearance Appearance- Dress/Hygiene: Somewhat unkempt Behaviors Thought Process: WNL Thought Content: Entitled Memory: WNL Insight: Poor SI/HI Risk Assessment - Minimum 6mo History- Past Suicidal Ideation/Attempts Yes Current Suicidal Ideation/Att No Past Homicidal Ideation/Att: No Current Homicidal Ideation/Attempts No Degree of Intent: Self Destructive/No (s/p OD) Danger To: Self Gravely Disabled: Lack of Insight, Poor Impulse Control, Poor Judgment Risk Factors: access to lethal means, chronic/serious med cond., high anxiety/ distress, substance abuse, isolate/no social support, poor impulse control, lack of outcome concern, male, limited support Lethality Ratin (most severe) Needs/Init TX Plan/Goals: Monitor for safety on a locked unit Symptom stabilization & management Medication evaluation & plan for compliance Individual & group therapy participation Family meeting with mother & sister Discharge planning AUDIT-C Questionnaire: AUDIT-C Questionnaire: Response Value ETOH use in the past year Never 0 # drinks typical/day Doesn't Drink 0 6 or > drinks per occasion Never 0 Total 0 DSM5/PS Stressors/Medical Prob Diagnosis' (DSM 5, Stressors, Medical): Cocaine (crack) use disorder Major Depressive Disorder vs Unspecified Mood Disorder vs Substance-induced mood disorder Nicotine Dependence Financial stress HTN, CHF, hypothyroid, CKD, pituitary tumor
[2017-04-04 20:03] VITALS: BP 149/92
--- NOTE | 2017-04-04 21:06 | NUR ---
Patient admitted to [facility] from the floors. Patient is loud, presured speech is clear and coherent. Patient does report insight to his lack of judgement re: SI attempt and reports "want(s) to live". Patient has extensive medical history. Patient PCP is Dr. Rain and will be followed by HOD while inpatient. Patient independent with all ADL and able to verbalize needs. Patient polite and courteous. Patient reports support as sister and brother in-law. PAtient does bare watching given this is his 1st inpatient psych stay. Looking forward to assisting Rock with mental health.
--- NOTE | 2017-04-05 01:03 | PN- Att Addend ---
Attending Addendum Attending Brief Note Follow up note: 61 yo M with h/o anxiety, depression, pituitary adenoma, HTN, hypothyroidism, substance abuse, CKD stage 3A, CHF (stage I diastolic dysfunction, EF 60%), viral myocarditis (negative cardiac cath), chronic venous insufficiency with previous LLE ulcer, upper GI bleed, admitted on March 31 to the ICU for intentional suicide attempt with Xanax and losartan. He received one dose of flumazenil in the ER but remained minimally responsive with intact neuro functions. He was hemodynamically stable and was able to protect his airway. Poison control was contacted for recommendations. His renal functions were deranged from baseline, IV fluids given, nephro consult was sought and renal usg was essentially negative. His renal functions are slowly improving. Patient currently transferred to Inpatient psychiatry for further management. He appears without any distress, denies chest pain, palpitations, nausea, lightheadedness or dyspnea. 12 point review of systems is essentially negative. Vital Signs: Vital Signs Date Time Temp Pulse Resp B/P B/P Pulse O2 O2 Flow FiO2 Mean Ox Delivery Rate 04/04 2214 98.6 73 18 149/92 04/04 2003 98.6 73 149/92 Intake & Output 04/05 0800 04/05 0000 04/04 1600 Intake Total Output Total Balance Patient 317 lb Weight Physical Exam: General Appearance: Alert, Oriented X3, Cooperative, No Acute Distress Skin: No Rashes HEENT: Atraumatic, PERRLA, EOMI, Mucous Membr. moist/pink Cardiovascular: Regular Rate, Normal S1, Normal S2, No Murmurs Lungs: Clear to Auscultation Abdomen: Soft, No Tenderness Neurological: Normal Speech Extremities: Left leg edema 1+, chronic venous stasis. Labs: H/H 10/29.4, BUN 28, creat 3.0, Utox was positive for Benzo, Barbiturates, Cocaine. Assessment and plan: 1. Intentional suicide attempt with drug overdose losartan and xanax. Medically stable. Management as per Psych team for depression and SI. 2. Acute on CKD. Renal functions slowly improving. Losartan has been discontinued completely. 3. Hypertension. Currently on amlodipine and carvedilol. 4. H/o heart failure. Last Echo on 10/17/[address] Hassan: Normal left ventricular wall thickness and normal LV EF at > 60%. Stage 1 diastolic dysfunction. Of note, patient sees Dr. Hassan as an outpatient. EKG unremarkable and troponin negative x0.01, no report of chest pain. Consider restarting furosemide if clinically indicated (prescribed but the patient is not taking it according to the mother) as outpatient. 5. H/o pituitary tumor and hypothyroidism. Continue levothyroxine at 0.15 mg PO daily. Per endocrine recs, there is no adrenal insufficiency. Plan is to continue Cabergoline 0.5 mg once a week on Sunday. 6. H/o COPD. Continue nebs as needed. Smoking cessation counseling done, nicotine patch given. DVT ppx low risk, early ambulation.
--- NOTE | 2017-04-05 07:00 | NUR ---
PATIENT WAS AWAKE X1 BRIEFLY, OTHERWISE SLEPT ALL NIGHT.
[2017-04-05 08:23] VITALS: BP 173/98
--- NOTE | 2017-04-05 10:56 | SOCIAL WORKER PROG NOTE PSYCH ---
See Addendum Social Work Progress Note Progress Note Rock presented as labile when we met. Very happy smiling with excitement, seemed loud and pressured. He then would get tearful at times talking about the suicide attempt and how he didn't really want to end his life after he realized what he had done. He apparently planned the attempt. He stated that he purposefully bought cocaine from someone he knew, thinking using it and mixing all the pills would end his life. He had a significant other that kill himself 22 years ago with alcohol and pills. He talked about the significant stressors in his life, mostly revolving around finances. He has an income of 1182.00 a month from [employer] and his Mom gets social security 1140.00 a month. He reports that they were very behind on the bills and that the electricity was going to be shut off. He became extremely hopeless and didn't see any other way out. States within minutes though of taking the pills he didn't really want to , but it was too late before he passed out. He shared that his sister Yumiko has been a huge help to him and helped him after this incident pay most of his electric bill. He is open to having a meeting with her. He reports no treatment for any mental health issue recently, but shared that Dr. Rain was prescribing him the Xanax for anxiety. He remembers years ago seeing someone in outpatient services for anxiety. He is disappointed that he won't be home for Mother's Day. He is hoping maybe his sister will bring his Mom here, but states she doesn't get out much due to her MS. He talked alot about knowing now what he needs to do with the bills and how to organize things. He seems to have alot of thoughts and energy today focused on future things he wants to get done around the house. He reports not sleeping since the incident and reports racing thoughts at night that are keeping him awake. Encouraged him to speak with the doctor about this. Called his Sister Yumiko and she is available to come in on Sunday at 11am for a meeting.
--- NOTE | 2017-04-05 11:39 | SOCIAL WORKER TX PLAN PSYCH ---
Treatment Plan - Please Document: - Evidence that there is ongoing collaboration between - the patient and the interdisciplinary team, - including the patient's active participation and - responsibility for engaging in the treatment regimen, - and that the treatment plan is individualized and - relevant to the patient's conditions. - Treatment plan should reflect documentation indicating - that all active therapeutic efforts are included. Strengths/Capabilities: able to communicate, Expresses desire to get treatment Physical Limitations (Interventions): Poor insight, multiple medical illnesses DSM5/PS Stressors/Medical Prob Diagnosis' (DSM 5, Stressors, Medical): Cocaine (crack) use disorder Major Depressive Disorder vs Unspecified Mood Disorder vs Substance-induced mood disorder Nicotine Dependence Financial stress HTN, CHF, hypothyroid, CKD, pituitary tumor Treatment Team - Responsibilities of members of the treatment team include: - Medication Management- MD or TOGGLE PRESS OPERATOR - Medication Administration and Monitoring- Nurse - Group Therapy- Occupational Therapist - 1:1 Therapy,Disch Planning,family involvement-Bottom Hoop Driver
[2017-04-05 12:24] VITALS: BP 134/70
--- NOTE | 2017-04-05 13:02 | NUR ---
PT PRESENTS HYPERVERBAL, PRESSURED AND LOUD AT TIMES, SOCIAL WITH PEERS AND STAFF, MOOD APPEARS ELATED WITH BRIGHT AFFECT, CAN BE INTRUSIVE AND DIFFICULT TO REDIRECT AT TIMES BUT OVERALL IS COMPLIANT WITH IT, PLEASANT AND ATTENDING GROUPS.
--- NOTE | 2017-04-05 15:44 | CPS MD/APRN INITIAL ASSE PSYCH ---
Psychiatric Admission Class A Regional Drivers's Note Reviewed: Yes Patient Seen and Examined: Yes Identifying Information: This is the 1st [facility] admission (?and initial lifetime psychiatric hospitalization) for a 61-year-old single (never ), childless man currently residing with his mother in [facility]'s home in [place], and unemployed/on disability. Chief Complaint: "I'm ready [to return home]...I'm not depresed...I don't want to go to inpatient psychiatry and all I feel like it's going to help me...I just got overwhelmed because of my bills." Reaction to Hospitalization: very negative, worried about taking care of his elderly mother, of paying his bills History of Present Illness Onset of Illness: Patient "impulsively" took large numbers of pills (approximately #60 Xanax and # 20 Losartan) in a suicide attempt but then "got scared" and called out from his room to his mother ("just before I passed out," according to patient). He was rushed (unconscious) to the E.D. where after receiving Romazicon (benzo. antagonist) he began to revive somewhat but required admission to the ICU, particularly given the large Losartan ingestion. Circumstances Leading to Admission: Patient had become more and more concerned over time that even with his mother's and his own "monthly checks" they were unable to keep up with the bills and after exhausting almost the entire equity in mother's home through a "reverse mortgage" were falling even further "into the hole." One day, patient became panicked and "popped all those pills...but then said to myself 'what have I done?'" Apparently, when patient first awoke from the overdose he was "disappointed" that he had not been successful in his suicide attempt, telling staff "I want to try again; I want another chance [to kill himself]." Problem(s) Justifying Need for Admission: --extremely serious polydrug/poly-pill overdose requiring lifesaving treatment in [place] ICU/medical service immediately PHLEBOTOMIST MEDICAL LAB ASSISTANT --lack of appropriate emotional response to the seriousness of what he had tried and almost succeeded in doing to himself just a few days previously Other HPI: Difficulties keeping up with the bills/expenses had been mounting over a period of years but came to a crisis when money from the "reverse mortgage" stopped coming in/maxed out and patient and mother started falling even further behind financially and the bills really started to pile up. This became a very significant stressor, and patient more and more concerned about how he will be able to continue caring for his elderly mother in her own home, increasingly worried she will have to "go into a 'home.'" The latter concern has been amplified by mother's worsening M.S. symptoms and patient's own diagnosis with that neurological disorder. Past Psychiatric History Past Diagnosis(es)- if any: in the [facility] diagnoses were: bipolar disorder episodic explosive disorder other diagnoses include: hypothyroidism hypertension pituitary adenoma Multiple Sclerosis migraine Past Precipitating Factors- if any: financial concerns/worries have been chronic and only growing over the years - Include inpatient and outpatient treatment Treatment History: Patient was seen briefly in [facility] in [id number]. He has been followed by hr systems analyst, Dr. Rain, for diagnosis of pituitary adenoma since at least 1998. I am not aware at this time who has been folowing patient's M.S. History of Suicide Attempts or Gestures none known prior to very serious/life-threatening overdose which precipitated current admission Substance Abuse History: Patient has had an apparently longstanding, extensive history of crack cocaine abuse right up to the present admission. Urine tox. screen in E.D. prior to entry into the ICU showed cocaine toxicity, as well as benzodiazepine toxicity ( from Xanax treatment and overdose PHLEBOTOMIST MEDICAL LAB ASSISTANT) and barbiturate toxicity from treatment of headaches/migraines with Fioricet. Allergies: Coded Allergies: sulfamethoxazole (From BACTRIM) (Severe, RASH 11/03/16) trimethoprim (From BACTRIM) (Severe, RASH 11/03/16) codeine (Intermediate, VOMITING, FACE NUMBNESS 10/17/16) Home Med List: Xanax, 0.5mg 2x/day PRN and: levothyroxine, 150mcg daily in early AM Losartan, 100mg daily carvedilol, 25mg 2x/day aspirin, 81mg daily Lasix, 20mg daily in AM Vitamin D3, 1,000 units daily albuterol, 90mcg , 2 puffs INH PRN - Include any medical condition(s) that may - impact the patient's recovery/remission Past History Medical History Neurological: migraine, multiple sclerosis EENT: NONE Cardiovascular: CAD, CHF, chronic venous insuff, hypertension, myocardial infarction, VIRAL PERICARDITIS Respiratory: NONE, uses albuterol PRN Gastrointestinal: NONE Hepatic: NONE Renal: chronic kidney disease, borderline GFR Musculoskeletal: degen joint disease, falls, spinal stenosis Psychiatric: bipolar disease (R/O bipolar spectrum disorder), insomnia, substance abuse (chronic crack cocaine abuse), mood disorder Endocrine: hypothyroidism, obesity, vitamin D deficiency, pituitary adenoma since at least 1998 (followed by Codey Rain M.D.) Blood Disorders: NONE Cancer(s): NONE, pituitary tumor- txd with Cabergoline; hx skull fibromas ( surgically removed); hx of benign breast tumors bilaterally surgically removed fibromas FOOD OPERATIONS MANAGER/Reproductive: NONE History of MRSA: No History of VRE: No History of CDIFF: No Isolation History: Standard Surgical History Surgical History: removal of benign "tumors" in breasts, bilaterally hyperprolactinemia caused by pituitary adenoma) CYSTS FROM HEAD, removal of pilonidal cyst, removal of skull fibromas, vascular surgery LLE Psychiatric Family/Social Hx Family History Psychiatric Illness: unknown at this time Substance Use: unknown Suicides: unknown Social History Living Situation: (see above, under "Identifying Information") Significant Relationships (family/friends): --very close to mother with whom he resides --has a sister locally Education: high school Vocation/Occupation: on disability (but apparently had worked "under the table" to help support crack cocaine abuse over a "30 year" period which would cost as much as $100-200/day). Legal: denied Health[facility] Behaviors Screening Tobacco Screening Tobacco Use from ED Docu: Current Daily Use Daily Tobacco Use Amount/Type: => 5 Cigarettes daily - If tobacco counseling indicated - the following topics are required. - #1 Recognizing dangerous situations. - #2 Coping Skills. - #3 Basic information about quitting. Status of Tobacco Cessation Counseling: #1, #2 AND #3 Completed Cessation Med Status: Nicotine Patch Ordered (14mg nicotine patch) Alcohol Screening - ETOH screen POS if BAL >=80 or Audit-C>= M4/F3 Audit-C Score from Diag Assess: 0 Blood Alcohol Level: DAYNE = less than 10.0 Alcohol Use Screening Results: Neg per Audit C &/or BAL - If ETOH counseling indicated - the following topics are required. - #1 Express concern about the patient's - drinking at unhealthy levels, include informing - of national norms for moderate drinking: - men <= 14 drinks/week, max 4 drinks/occasion - women <= 7 drinks/week, max 3 drinks/occasion - #2 Providing feedback, including linking alcohol to - negative physical effects (liver injury, hypertension) - negative emotional effects (relationship problems and - depression) - negative occupational consequences (reduced work - performance) - #3 Advising the patient to abstain from alcohol or - to drink below national norms for moderate drinking - (as listed above). Status of ETOH Use Counseling: N/A B/C NO ETOH Use Metabolic Screening - Screen if on a Neuroleptic Medication - Metabolic screening should include: - Blood Pressure, BMI, Glucose or Hgb A1c, & a - Lipid profile from within the past 365 days. Metabolic Screening ([x]) Not Applicable, patient not on a neuroleptic. OR () Patient on a neuroleptic(s) . Enter below results for Glucose or Hemoglobin A1C, and lipid panel if obtained during the last 365 days. BMI: 49.600 Blood Pressure: 141/74 Laboratory Results (If applicable): Exam and Plan Mental Status Examination Ambulation Status: without assistance Appearance: rather jolly, obese, "farhan mackenzie" sort of look (with fuentes to match) Attitude towards examiner: positive, relaxed, almost over familiar Psychomotor activity: mildly overactive and fidgety Behavior: polite, pleasant, informal, jovial, mildly if not disinhibed perhaps "under inhibited," familiar as if addressing an old friend (we had never met before) Quality of speech: somewhat loud but clear and coherent Affect: bright, overly cheerful (somewhat inappropriate to the circumstances and recent lifethreatening circumstances) Mood: affable, somewhat expansive, denying depression and not appearing in the least sad or distressed Suicidal Ideation: denied at this time; said he "can't understand" his very serious, lifethreatening suicide attempt immediately prior to his appearance in E.D. (and ICU admisison) Homicidal Ideation: denied Hallucinations: denied at this time Paranoid/Delusional Material: none evident or spontaneously expresed Difficulties with thought organization: somewhat pressured but not disorganized Insight: lacking at this time Judgment: fair Orientation: full Cognition: somewhat scattered in expressed thought but no evidence of gross focal deficits Memory Function: grossly intact except for the brief period leading up to his suicide attempt PHLEBOTOMIST MEDICAL LAB ASSISTANT Estimate of intellectual functioning: average Assets/Strengths Patient Identified Assets/Strengths: --cares for and about his elderly mother --likes people, to talk --has tried to keep together his and mother's finances (but not mentioning the large amount of their shared income he has spent on crack for many years) Impression/Plan Impression and Plan: Patient presents in the wake of a very serious, lifethreatening large polydrug overdose which appears to have been precipitated by financial difficulties increasingly contributed to by many years of regular crack cocaine abuse; paradoxically, he does not appear to link his chronic and now dire financial stress with all the income he has spent on cocaine over a very long period ( perhaps 30+ years) of crack abuse/addiction. 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 He had been called bipolar by Dr. Holman. Patient explained the diagnosis of intermittent explosive disorder (by Dr. Durbin) as likely stemming from his tendency to periodically "over react" to minor adverse situations/slights with "explosions" of anger, yelling, etc. Apparently, these episodes have never gotten him into a trouble with the legal system. Currently, patient appears at least mildly elated, pressured, inappropriately "bubbly" in affect/mood with a tendency to deny or resist looking very closely at the life- threatening circumstances which eventuated in his current admission to [facility], taking an attitude of almost "belle indifference" to recent events and making no connection between his rather incredibly extensive crack cocaine abuse history and the worsening of his (and his mother's) finances over the years which have essentially sent mother's major possession, her home "up in [crack cocaine] smoke." We need to have a family meeting [facility] and patient's sister should be part of it. We need to try to impress upon patient the seriousness of his cocaine use disorder, both in terms of impoverishing him (and his mother) and making him very much more at risk in terms of his cardiac and mental health conditions and at risk for his very life as incident suicide attempt could very likely have resulted in his had not his mother intervened (he had already lost consciousness soon after the ingestion and barely got the fact of his overdose to his mother's attention before he passed out). 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 and many years of regular crack cocaine abuse) --Cocaine (crack) Use Disorder, severe and very longstanding --sedative/hypnotic/anxiolytic (benzodiazepine) dependence (prescribed low dose Xanax for anxiety and sleep, likely without his prescriber having any awareness of his chronic crack use) --R/O Unspecified Anxiety Disorder - Initial Tx Plan for Active Psych & Medical Conditions Treatment Plan: --we will discuss with patient a "retrial" on Depakote and attempt to initiate this on [facility] --we will endeavor to educate patient with regard to contraindications to his continuing use of Xanax (or any other addictive anxiolytic) --we will attempt to organize a family meeting, including patient's sister and mother, KENYON --we will attempt to gain more clarity about the seriousness of patient (and mother's) financial situation and its implications to their lives going forward (e.g. "will they lose mother's home due to financial exhaustion of the "reverse mortage") --we will refer patient to intensive aftercare in the [facility] --we will determine as to whether there is any indication to involve neurology ( Dr. Jenkins, M.S. specialist who has been consulted by patient and his mother previously) in current evaluation and future planning--get release (KARISSA) from patient - Factors that would help patient function - in a less restrictive setting. Factors: --patient taking a positive attitude towards his aftercare referral to the dual focus [facility] --prompt organization of family meeting and favorable outcome with appropriate support (and limit-setting) from family --rapid resolution of patient's current relatively "denying" and minimizing approach to his very serious suicidality/suicide attempt PHLEBOTOMIST MEDICAL LAB ASSISTANT and its implications for his future emotional risks/well-being
[2017-04-05 16:03] VITALS: BP 151/95
--- NOTE | 2017-04-05 16:15 | SOCIAL WORKER SOCIAL HX PSYCH ---
Social History Basic Assessment Insurance Authorization: Insurance #1: Insurance name: MED[employer] Phone number: Policy number: [id number] Group number: Authorization number: Curr Source of Income/Entitlements: [facility] Primary Care Physician: Patient's PCP: DANIEL AGUILERA MD PCP's Primary Language? Haitian Language(s) Spoken At Home: Haitian Living Situation Rents or Owns Home? owns Feel Safe Where You Are Living Yes Feel Safe in Relationships? Yes Comments: Pt lives in his Mothers home that she owns, and he takes care of her Allergies - Coded Allergies: sulfamethoxazole (From BACTRIM) (Severe, RASH 11/03/16) trimethoprim (From BACTRIM) (Severe, RASH 11/03/16) codeine (Intermediate, VOMITING, FACE NUMBNESS 10/17/16) Current Medications - Scheduled Medications Amlodipine Besylate (Norvasc) 10 MG TABLET 1 TAB PO DAILY BP #1 Prescribed by DELMER ZAPATA on 04/03/17 Aspirin (Aspirin*) 81 MG TAB.CHEW 1 TAB PO DAILY HEART HEALTH (Reported) Entered as Reported by MARITZA GARNER on 10/17/16 1241 Cabergoline 0.5 MG TABLET 0.5 TAB PO 2XW UNKNOWN #4 Prescribed by DELMER ZAPATA on 04/03/17 Carvedilol 25 MG TABLET 1 TAB PO BID HEART #180 (Reported) Entered as Reported by MARITZA GARNER on 10/17/16 1239 Cholecalciferol (Vitamin D3) 1,000 UNIT TABLET 1 TAB PO DAILY SUPPLEMENT ( Reported) Entered as Reported by MARITZA GARNER on 10/17/16 1242 Levothyroxine Sodium 150 MCG TABLET 1 TAB PO DAILY AC THYROID #90 (Reported) Entered as Reported by MARITZA GARNER on 10/17/16 1240 Nicotine (Nicotine Patch) 14 MG/24 HOUR PATCH.TD24 1 MG TOP DAILY SMOKING #4 Prescribed by DELMER ZAPATA on 04/03/17 Scheduled PRN Medications Albuterol Sulfate (Ventolin Hfa) 90 MCG HFA.AER.AD 2 PUF INH AD PRN RESPIRATORY #18 (Reported) Entered as Reported by ALFREDO PAIZ on 03/31/17 1703 Discontinued Medications Alprazolam 0.5 MG TABLET 1 TAB PO BIDP PRN ANXIETY #60 (Reported) Discontinued reason: Per Doctor Decision Furosemide 20 MG TABLET 1 TAB PO DAILY WATER PILL #30 (Reported) Discontinued reason: Per Doctor Decision Losartan Potassium 100 MG TABLET 1 TAB PO DAILY HEART #90 (Reported) Discontinued reason: Per Doctor Decision Past History Past Medical History Neurological: migraine, multiple sclerosis EENT: NONE Cardiovascular: CHF, chronic venous insuff, hypertension, myocardial infarction, VIRAL PERICARDITIS Respiratory: NONE Gastrointestinal: NONE Hepatic: NONE Renal: borderline GFR Musculoskeletal: degen joint disease, falls, spinal stenosis Psychiatric: anxiety, insomnia, mood disorder Endocrine: hypothyroidism, obesity, vitamin D deficiency, pituitary tumor Blood Disorders: NONE Cancer(s): pituitary tumor- txd with Cabergoline; hx skull fibromas COOK COLD MEAT/Reproductive: NONE Past Surgical History Surgical History: BENIGN BREAST TUMOR REMOVAL B/L, PILONIDAL CYST REMOVAL, REMOVAL OF SKULL FIBROMAS VASC PROCEDURE LLE /Family History Place/Country of Origin: [place] Childhood Family Constellation: parents and sister Primary Childhood Caretakers: father, mother Family Life During Childhood: Great DCF Involvement? No Mother's Age (Current/): 85 Relationship w/Mother: excellent, we live together Relationship w/Father: we were close and when he I moved back to [place] Any Sibling(s)? Yes Sibling's Gender(s)/Age(s): female Sibling 1: Relationship w/Sibling(s): very close, she comes to visit me and helps with my Mom Relationship w/Friends: a few good friends Family Psych/Sub Abuse/Add Hx: drug of choice (denies) Abuse/Trauma History Trauma History/Current Trauma: Denies Legal History Have you ever been arrested No Number of Arrests: 0 Hx of Adult Legal Charges? No Psychosocial History Primary Support System: mother, sibling(s), friend Strengths/Capabilities: able to communicate, Expresses desire to get treatment Physical Limitations (Interventions): Poor insight, multiple medical illnesses Last Physical: 2017 History of Seizures? No History of Blackouts? No ADL Limitations: none known Hestand/Social/Peer Relations few close friends Meaningful Activities: cooking, shopping for dinner, caretaking family Childhood Samaritan: Oriental Orthodox Current Episcopalian Affiliation: Oriental Orthodox Is Spirituality Important to You? yes Psychiatric Treatment History Diagnosis: Major Depressive Disorder R/O Substance-induced mood disorder Cocaine (crack) use disorder Nicotine Dependence Risk Factors: access to lethal means, chronic/serious med cond., high anxiety/ distress, SA/MH hospitalized, substance abuse, isolate/no social support, poor impulse control, lack of outcome concern, male, limited support Substance Use/Abuse History Symptoms of Use: Poor impulse control Sexual History Sexually Active No # of partners 0 Sexual Orientation Homosexual Education History Highest Level of Education: high school/GED Preferred Learning Style: experiential HX of Learning Difficulties: None reported Barriers to Learning: None reported Special Communication Needs: None reported Employment History Employment Disability History Have You Been in The ? No Current Mental Status Mental Status Orientation: Person, Place, Situation Affect: Broad (?elevated), Variable Speech: WNL Neuro-vegetative: Sleep Disturbance Appearance Appearance- Dress/Hygiene: Somewhat unkempt Behaviors Thought Process: WNL Thought Content: Entitled Memory: WNL Insight: Poor SI/HI Risk Assessment Past Suicidal Ideation/Attempts Yes Current Suicidal Ideation/Att No Past Homicidal Ideation/Att: No Current Homicidal Ideation/Attempts No Degree of Intent: Self Destructive/No (s/p OD) Danger To: Self Gravely Disabled: Lack of Insight, Poor Impulse Control, Poor Judgment Lethality Ratin (most severe) - Conclusion and Recommendations for treatment - and discharge planning
[2017-04-05 19:49] VITALS: BP 150/93
--- NOTE | 2017-04-05 21:26 | NUR ---
PT IS VISIBLE ON UNIT, SOCIALIZING WITH PEERS AND VISITING WITH SISTER IN KITCHEN. PT IS VERY LOUD AND PRESSURED AT TIMES, AND REQUIRES REDIRECTION WHICH HE TYPICALLY RESPONDS WELL TO. DURING WRAP UP MEETING PT WAS ASKED 5 TIMES TO PLEASE STOP SPEAKING WHILE OTHERS WERE SHARING. PT CONTINUED TO INTERUPT AND WAS ASKED BY THIS MHW TO PLEASE EXCUSE SELF FROM THE GROUP. PT COMPLIED BUT SLAMMED DOORS, CONTINUED YELLING TO STAFF AT NURSES STATION AND WAS THROWING THINGS IN ROOM. PT WAS LABILE AFTER THE MEETING AND SUPPORT WAS PROVIDED BY STAFF. OTHER THAN THE PRIOR INCIDENT, PT IS VERY BRIGHT AND SOCIAL. OVERALL COOPERATIVE AND COMPLIANT WITH STAFF. NO SI REPORTED. PT HAS A STABLE MOOD AND FULL RANGE AFFECT.
[2017-04-06] VITALS (9 sets, daily range): BP systolic 144–169; BP diastolic 83–94
--- NOTE | 2017-04-06 07:34 | NUR ---
PT LOUD AND UPSET AND LEFT WRAP UP EARLY, INCORRECTLY PERCEIVING THAT HE HAD BEEN REPRIMANDED BY ADMINISTRATIVE SERVICES COORDINATOR. THE PATIENT WAS FINE SOON AFTER. PT SLEPT.
--- NOTE | 2017-04-06 11:48 | SOCIAL WORKER PROG NOTE PSYCH ---
Social Work Progress Note Progress Note Rock had to be redirected this morning in the kitchen, talking inappropriately about sex with another female peer. He reported he was "joking around." When he and I met later, he continued to present as hyper, very happy, and stated his mood was really up. He stated he may need a mood stabilizer. I told him that he is hypo manic and I'm concerned about his mood lability. He describes himself in the past as having ups and downs in his mood. Told him that the family meeting is set up for Sunday at 2pm. He is happy about that. We talked about aftercare planning. He is open to IOP, but I don't know if he will be able to afford the copay on Medicare. I didn't mention that today, due to not looking at insurance until later. He is open to the idea of support. His preference would be to see someone once to twice a week. Talked about how he has done so well on the nicotine patch that he is consider using it when he leaves. States he hasn't even thought about a cigarette. Participating in groups.
--- NOTE | 2017-04-06 13:12 | NUR ---
PT IS ATTENDING GROUPS AND COMPLIANT WITH HIS MEDS. HE IS LOUD AT TIMES AND REQUIRED SOME REDIRECTION AFTER HAVING LOUD INAPPROPRIATE COMMENTS IN THE KITCHEN. WHEN ASKED HE DENIED ANY SUICIDAL THOUGHTS. AFFECT IS FULL RANGE
--- NOTE | 2017-04-06 14:36 | PN- Nephrology ---
Assessment/Plan Assessment: Assessment: 1. Acute kidney injury/CKD secondary to hypotension and losartan overdose - renal function improving 2. Suicide attempt with benzodiazepine and ARB overdose 3. History of substance abuse 4. Depression Suggestion: 1. Recheck chemistries tomorrow and then again on Monday 04/09. 2. Maintain adequate hydration 3. Outpatient renal follow-up after discharge Subjective Subjective: Patient seems to be in good spirits with no complaints. Renal function slowly improving. Electrolytes okay. Objective Vital Signs and I&Os Vital Signs Date Time Temp Pulse Resp B/P B/P Pulse O2 O2 Flow FiO2 Mean Ox Delivery Rate 04/06 1239 65 148/94 04/06 1237 65 148/94 04/06 0933 98.1 70 20 169/86 04/06 0933 98.1 70 20 169/86 04/06 0756 98.1 70 169/86 04/06 0753 98.1 70 169/86 04/06 0742 98.1 70 169/86 04/05 2132 150/93 04/05 1949 98.4 64 150/93 04/05 1603 70 20 151/95 04/05 1603 70 151/95 Intake & Output 04/06 1600 04/06 0400 04/05 1600 04/05 0400 04/04 1600 04/04 0400 Intake Total Output Total Balance Patient 317 lb Weight Physical Exam: General: Well-developed white male in NAD Skin: No rash or jaundice HEENT: Conjunctivae pink, sclerae anicteric, mucous membranes moist Neck: Without masses or thyromegaly, no supraclavicular or cervical adenopathy Chest: Clear to P&A Heart: Regular rate and rhythm without S3 or rub Abdomen: Soft and nontender without palpable masses or organomegaly Extremities: Without cyanosis; left leg is edematous (tr-1+) with chronic overlying skin changes Neuro: No focal findings, no asterixis or myoclonus Current Medications: Current Medications Sig/Edy Start time Last Medication Dose Route Stop Time Status Admin Albuterol Sulfate 2 PUF Q4P PRN 04/04 2045 AC INH Amlodipine Besylate 10 MG DAILY 04/05 1000 AC 04/06 PO 0933 Aspirin Buffered 81 MG DAILY 04/05 1000 AC 04/06 PO 0933 Cabergoline 0.5 MG QMON 04/09 0700 AC PO Carvedilol 25 MG BID 04/04 2200 AC 04/06 PO 0933 Cholecalciferol 1,000 IU DAILY 04/05 1000 AC 04/06 PO 0933 Escitalopram Oxalate 5 MG 1000 04/07 1000 AC PO Escitalopram Oxalate 5 MG 1000 04/06 1000 DC 04/06 PO 0936 Gabapentin 300 MG Q4P PRN 04/04 2130 AC 04/05 PO 0618 Hydroxyzine HCl 50 MG Q4P PRN 04/04 2145 AC 04/04 PO 221 Levothyroxine Sodium 0.15 MG DAILY AC 04/05 07 AC 04/06 PO 0645 Lorazepam 1 MG Q4P PRN 04/04 2145 AC PO Lorazepam 1.5 MG Q4H PRN 04/04 2145 AC PO Melatonin 5 MG 04/05 AC 04/05 PO 213 Nicotine 14 MG DAILY 04/04 2041 AC 04/06 TOP 0934 Results Pertinent Lab Results: Laboratory Tests 04/06 04/05 0658 1435 Chemistry Sodium (137 - 145 mmol/L) 144 146 H Potassium (3.5 - 5.1 mmol/L) 4.9 5.2 H Chloride (98 - 107 mmol/L) 108 H 106 Carbon Dioxide (22 - 30 mmol/L) 25 27 Anion Gap (5 - 16) 12 12 BUN (9 - 20 mg/dL) 34 H 34 H Creatinine (0.7 - 1.2 mg/dL) 2.6 H 2.8 H Estimated GFR (>60 ml/min) 25 L 23 L BUN/Creatinine Ratio (7 - 25 %) 13.1 12.1 Glucose (65 - 99 mg/dL) 94 Calcium (8.4 - 10.2 mg/dL) 9.5
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
--- NOTE | 2017-04-06 20:50 | NUR ---
PT IS CALM, COOPERATIVE WITH STAFF AND PEERS, AND COMPLIANT WITH UNIT RULES. PT IS OFTEN IN [place]IE[place], INTERACTING WELL WITH OTHERS. MOOD IS STABLE, AFFECT IS BRIGHT TO FULL RANGE, COMMUNICATION IS ORGANIZED AND APPEARS NORMAL IN ALL RESPECTS, AND APPETITE IS NORMAL. PT DENIES SI AT THIS TIME.
[2017-04-06] MEDS ORDERED: PROAIR HFA8.5 GM INH (21:36)
[2017-04-06] MEDS ORDERED: VENTOLIN HFA18 GM INH (21:40)
[2017-04-07] VITALS (8 sets, daily range): BP systolic 140–148; BP diastolic 78–98
--- NOTE | 2017-04-07 14:00 | NUR ---
LOUD VOLUME THAT IS PATIENTS NATURAL INTONATION. BECOMES ANGRY CHILDLIKE WHEN ASKED TO TONE IT DOWN. DENIES SUICIDAL THOUGHTS WHEN ASKED. mOOD IS PRIMARILY HAPPY UNLESS BEING CORRECTED.
--- NOTE | 2017-04-07 20:25 | NUR ---
PT IS VISIBLE ON UNIT, SOCIAL WITH PEERS AND COLORING IN KITCHEN. COOPERATIVE AND COMPLIANT WITH STAFF. TOOK A NAP THROUGHOUT EVENING AND REPORTS FEELING MUCH BETTER AFTER. NO COMPLAINTS OR SI REPORTED. PT HAS A STABLE MOOD AND BRIGHT AFFECT.
[2017-04-08] VITALS (8 sets, daily range): BP systolic 134–150; BP diastolic 67–89
--- NOTE | 2017-04-08 00:19 | CP SOUTH PROGRESS NOTE PSYCH ---
Psych (Inpt) Progress Note Progress Note The patient was seen individually and discussed with unit staff. He is 71 years old, , single male, was admitted into the inpatient psychiatric unit or status post offer toes in attempt to kill himself. We reviewed the inpatient progress reports and progress to date. The patient was interviewed. He is medium height, obese male, fairly well groomed, pleasant and cooperative. He is currently denying suicidal/homicidal ideation, auditory/visual hallucinations or side effects from the medications. The patient is quite cheerful, he is at times inappropriate and unable to respect average societal rules for example regarding personal space. He is hyper verbal, somewhat flighty, with well articulated, circumstantial, normal tone of speech. The patient is cognitively intact, has improved insight and judgment relative to his mental illness, says he is motivated for treatment and follow-up on an outpatient basis once he is stabilized on inpatient unit. He has pedal edema on his left foot,& since admission. The patient stated he felt worse and showed us the foot with distending very tri -almost cracked skin. The patient was advised to elevate his feet and use moisturizing cream on his legs. We will continue present management. The patient will be followed up daily.
--- NOTE | 2017-04-08 07:54 | CP SOUTH PROGRESS NOTE PSYCH ---
Psych (Inpt) Progress Note Progress Note Include the following elements, when applicable: Involvement in the active treatment of the patient with behavioral observations of the patient and the patient's response to the treatment. Review of the ongoing treatment process in the context of the treatment plan. Indication of how multi-disciplinary staff members are carrying out the treatment plan. Plans for future interventions and recommendations for revision of the treatment plan. Liaison with other physicians/providers. Progress Note: The patient was seen for follow-up during continuous care. The patient was discussed with unit staff and interviewed by us individually. According to the nursing staff he has been sleeping and eating well. He has been active on the unit, interacting appropriately with peers and participating in all the activities. The patient has been compliant with the medication and did not report any side effects. During the individual interview she appeared cheerful, looking forward to the family meeting which had been scheduled for tomorrow April 09 with his sister. The patient expressed his desire to be discharged and to continue treatment on an outpatient basis mixed with the regret to leave behind the friends he had made on the unit. He reports his mood has been improved. He denied suicidal/homicidal ideation, auditory/visual hallucinations or side effects from the medication. He is very grateful that his overdose was not fatal and says that he is now appreciating life as he never did before. The patient states that he will never hurt himself or anybody else and that: "I was hector enough to have been given a second chance. I will not blow this. My life will only get better." The patient has good insight and judgment and is motivated for continuation of treatment. His pedal edema is much better, he has been keeping his feet elevated and moiturizing his left leg continuously, therefore he does not feel the pain and discomfort he used to. We will continue present management, observation, symptom monitoring and discharge planning. The patient is willing to continue with an intensive outpatient program after discharge.
--- NOTE | 2017-04-08 12:58 | NUR ---
PT IS COMPLIANT AND COOPERATIVE WITH UNIT RULES. PT IS OUT IN THE COMMUNITY INTERACTING WELL WITH STAFF AND PEERS. PT CAN BE LOUD AT TIMES AND NEEDS REDRIECTION TO SPEAK IN SOFTER TONES. PT IS ATTENDING GROUPS. PT MOOD IS STABLE WITH A BRIGHT TO FULL RANGE AFFECT. PT DENIES SI THOUGHTS.
--- NOTE | 2017-04-08 21:56 | NUR ---
DR. SEGURA CALLED AND UPATED DUE TO PATIENT HAVING AN EMOTIONAL OUTBURST AFTER A PHONE CALL WITH HIS SISTER; EMIL BECAME AGITATED AFTER BEING TOLD THAT HIS SISTER MIGHT NOT BE ABLE TO TRANSPORT HIM HOME IF HE WAS DISCHARGED ON SUNDAY DUE TO HER JOB; PATIENT STARTED LOUDLY SOBBING, STATING "I KNEW THIS WAS GONNA HAPPEN, THAT I WOULDN'T BE ABLE TO GO HOME WHEN I WANTED TO!"; PATIENT GIVEN PRN NEURONTIN AND ABILIFY, AND IS CURRENTLY IN PROCESS OF CALMING DOWN BUT IS STILL TEARFUL.
--- NOTE | 2017-04-08 22:48 | NUR ---
PATIENT CALMER, INTERACTING WITH PEERS, MOOD IMPROVED; PATIENT AGAIN SPOKE WITH FAMILY, WORKED OUT DIFFICULTY REGARDING TRANSPORTATION.
[2017-04-09] VITALS (8 sets, daily range): BP systolic 141–158; BP diastolic 73–82
--- NOTE | 2017-04-09 06:04 | NUR ---
PATIENT SLEPT ALL NIGHT.
--- NOTE | 2017-04-09 12:50 | NUR ---
PT IS COMPLIANT AND COOPERATIVE. MOOD IS STABLE WITH A FULL RANGE AND BRIGHT AFFECT. PT DENIES SI AT THIS TIME, NO COMPLAINTS OFFERED. PT SPEECH IS LOUD AT BASELINE AND NEEDS TO BE REDIRECTED AT TIMES. PT IS PRESENT IN THE COMMUNITY AND INTERACTING WELL WITH PEERS AND STAFF. PT IS ATTENDING GROUPS. VITALS ARE STABLE, APPETITE IS GOOD/
--- NOTE | 2017-04-09 14:41 | NUR ---
PT HAD A MEETING WITH HIS AMILY AND BECAME AGITATED AND UPSET HE THOUGHT HE WOULDBE ABLE TO GO HOME. HE BECAME LOUD AND TEARFUL AND BANGING HIS HANDS ON THE CHAIR. PT IS PLACED ON ONE TO ONE STATUS AND GIVEN BENADRYL 50MG AND ZYPREXA 5MG PO PRN
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
--- NOTE | 2017-04-09 22:02 | NUR ---
PT IS VISIBLE ON UNIT, COLORING IN KITCHEN AND SOCIALIZING WITH PEERS. ATTENDED WRAP UP MEETING WHERE HE PARTICIPATED BUT WAS ALSO LABILE AND REQUIRED SOME REDIRECTION. THROUGHOUT THE EVENING, PT MADE A PHONE CALL WHERE HE GREW LOUD, VULGAR AND UPSET. WHEN STAFF TRIED TO REDIRECT PT HE GREW EVEN MORE IRRITABLE AND LABILE. PT WAS ABLE TO CALM DOWN WITH SUPPORT FROM PEERS. REMAINS ON 1:1 SITTER FOR SAFETY. OVERALL COOPERATIVE AND COMPLIANT WITH STAFF. NO SI REPORTED. PT HAS A LABILE MOOD AND AFFECT.
[2017-04-10] VITALS (8 sets, daily range): BP systolic 145–178; BP diastolic 75–95
--- NOTE | 2017-04-10 07:28 | NUR ---
PT ON 1:1. PT WITH DRAMATIC PHONE CALL TO ELDERLY MOM. SOCIAL, LOUD. PT SLEPT.
--- NOTE | 2017-04-10 13:56 | NUR ---
PT HAS BEEN CALM AND COOPERATIVE ALL DAY. HE WAS MONITORED ON ONE TO ONE STATUS FOR PART OF THE MORNING. HE IS MONITORED Q15 MIN AT THIS TIME. HE IS TAKING HIS MEDS AND ATTENDING SOME OF THE GROUPS. PT DENIES SUICIDAL THOUGHTS
--- NOTE | 2017-04-10 14:38 | CP SOUTH PROGRESS NOTE PSYCH ---
Psych (Inpt) Progress Note Progress Note Include the following elements, when applicable: Involvement in the active treatment of the patient with behavioral observations of the patient and the patient's response to the treatment. Review of the ongoing treatment process in the context of the treatment plan. Indication of how multi-disciplinary staff members are carrying out the treatment plan. Plans for future interventions and recommendations for revision of the treatment plan. Liaison with other physicians/providers. Progress Note: PSYCHIATRIST NOTE, 04/10/2017: I discussed this patient's progress to date, current mental status, treatment and discharge planning with staff team today in the daily morning KATARZYNA and Lesly Valles LCSW, and I met with him together in individual session. He was taken off constant 1:1 observation. We discussed patient's own thoughts about yesterday's family meeting and his rageful/histrionic behavior during it (which essentially ended the contact we were having with him and his sister though Ms. Valles and I stayed for a while to help sister Yumiko regain her composure after her brother's outburst some of which was "directed" at her for having the nerve to speak the truth about his behavior at home and especially around his mother and her. He was calm throughout our meeting today and after for a time trying to redirect attention away from his own outrageous behavior and onto someone or something else, seemed to eventually become somewhat more reflective and insightful concerning his childish, impulsive, disinhibited behavior at stressful times or even in response to minor irritants, day-to-day disappointments, delays or frustrations. He acknowledged having a problem with his "temper" most of his life, but it has gotten worse, become more of a problem over time. We spoke again about patient's use of crack cocaine
--- NOTE | 2017-04-10 17:24 | SOCIAL WORKER PROG NOTE PSYCH ---
Social Work Progress Note Progress Note Rock, Dr. Oviedo, and I met together today to process the meeting. Rock admitted that he behaved badly during the meeting. He continues to present in a presssured manner, interrupting others as they are trying to speak. We processed the content of the meeting and what happened. Rock continued to want to blame the things that others said at the meeting that upset him. We encouraged him to look at how his behavior impacted the meeting and the people around him. He admits that he blows up like that once a month or so. Talked about how this impacts his sister, his Mom and how this is quite intimidating. Discussed his cocaine use and where his money seems to be going. Rock admitted to using a few times over a month or two, but denies a serious addiction and said he doesn't need the cocaine, but wants it. We talked about where else he could be putting that money. He states he spends about 50.00 when he does buy it. He is open to a referral at [facility]. He signed a release for me to send clinical.
--- NOTE | 2017-04-10 21:10 | NUR ---
PT IS CALM, COOPERATIVE WITH STAFF AND PEERS, AND COMPLIANT WITH UNIT RULES. PT IS OFTEN IN [place]IE[place], INTERACTING WELL WITH OTHERS. MOOD IS STBALE, AFFECT IS BRIGHT TO FULL RANGE, COMMUNICATION IS ORGANIZED AND APPEARS LOUD AND RESSURED AT TIMES, AND APPETITE IS NORMAL. PT DENIES SI AT THIS TIME.
[2017-04-11] VITALS (8 sets, daily range): BP systolic 134–150; BP diastolic 77–95
--- NOTE | 2017-04-11 05:44 | NUR ---
PT NO LONGER ON 1:1. PT LESS DRAMATIC, STILL LOUD AND CHILD-LIKE. PT SLEPT.
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
--- NOTE | 2017-04-11 13:10 | NUR ---
PT IS COMPLIANT AND COOPERATIVE WITH UNIT RULES. PT IS OUT IN THE COMMUNITY INTERACTING WELL WITH STAFF AND PEERS. PT IS ATTENDING ALL GROUPS. PT MOOD IS STABLE WITH A BRIGHT TO FULL RANGE AFFECT. PT DENIES SI THOUGHTS.
--- NOTE | 2017-04-11 15:04 | SOCIAL WORKER PROG NOTE PSYCH ---
Social Work Progress Note Progress Note Sw met with pt he presents as cheerful and in good spirits. He expresses that his tx made him so much better and he no longer feels depressed. He discussed healthy coping and identified how he will cope and manage his depression if it returns so that he won't make the mistake he made by trying to end his life. Pt also identified protective factors such as his family and loves ones and having open communication with them.
--- NOTE | 2017-04-11 19:28 | CP SOUTH PROGRESS NOTE PSYCH ---
Psych (Inpt) Progress Note Progress Note Include the following elements, when applicable: Involvement in the active treatment of the patient with behavioral observations of the patient and the patient's response to the treatment. Review of the ongoing treatment process in the context of the treatment plan. Indication of how multi-disciplinary staff members are carrying out the treatment plan. Plans for future interventions and recommendations for revision of the treatment plan. Liaison with other physicians/providers. Progress Note: PSYCHIATRIST NOTE, 04/11/2017: I discussed this patient's progress to date, current mental status, treatment and discharge planning with staff team today in the daily morning ITTM and also met with him again myself in individual session. Staff report patient to be less dramatic, without rageful episodes but still acting in a "child-like "/immature manner at times. Serum valproic acid level this morning was already up to 74.6mcg/ml; I will continue current daily dose of Depakote, 1,000mg 2x/ day. Patient has been off 1:1 staff observation since yesterday and not been a behavioral problem in the patient community/milieu or with staff members. He continues to express remorse over his rageful outburst during the family meeting on 04/09/2017 and seems to be gaining some degree of insight into how he impulsively flys off the handle over what appear to be less than truly critical issues. I reminded him of how upset and anxious his sister had been during and after his screaming episode. He noted that such scenes have been occurring at home (with his mother) recently on an average of once a month, about the same frequency at which he admits to using crack cocaine. We have been concerned about his mother and decided to involve Elderly Protective Services who will be investigating into the situation in the patient and his mother's home on an ongoing basis and if this is a viable situation for mother. Patient himself has mentioned several times the burden he feels day-to-day in "caring for all mother 's needs." Ms. Valles has been experiencing at unexpected degree of difficulty in referring patient (who has been a [facility] resident virtually his entire life!) for services at [facility] which is the designated "lead agency" for providing mental health services to the [facility].
--- NOTE | 2017-04-11 21:21 | NUR ---
PT IS VISIBLE ON UNIT, COLORING IN KITCHEN AND MAKING PHONE CALLS. ATTENDED WRAP UP MEETING. PT AT TIMES CAN BE LOUD AND PRESSURED BUT RESPONDS WELL TO REDIRECTION. NO COMPLAINTS OR SI REPORTED. PT HAS A STABLE MOOD AND FULL RANGE AFFECT.
--- NOTE | 2017-04-12 06:58 | NUR ---
PATIENT BRIEFLY AWAKE X2, OTHERWISE SLEPT ALL NIGHT; HE VERBALIZED WANTING TO GET HIS LAB WORK DONE EARLY SO THAT THERE WOULD BE NO PROBLEM GETTING DISCHARGED.
[2017-04-12 07:48] VITALS: BP 138/81
[2017-04-12 08:02] VITALS: BP 138/70
[2017-04-12 08:23] VITALS: BP 138/70
--- NOTE | 2017-04-12 08:47 | NUR ---
PT IS TENTATIVELY SCHEDULED FOR D/C TO [facility] TODAY HE STATES HE IS WAITNING ONLY TO FINALIZE HIS FOLLOW UP PLANS WITH THE SIGNALS OFFICER. HE IS CALM AND COOPERATIVE AND HE DENIES ANY THOUGHTS OF SUICIDE OR SELF HARM. HE IS COMPLIANT WITH HIS MED REGIME. PT IS GIVEN EDUCATION R/T MANAGING HIS MOOD D/O AND ON SUICIDE PREVENTION
--- NOTE | 2017-04-12 10:47 | SOCIAL WORKER PROG NOTE PSYCH ---
Social Work Progress Note Progress Note Case discussed in team meeting. Patient will be discharged today with a referral to OPS. Appt. scheduled for intake on 04/17 at 10:45am with Cherelle. Medication appt. with Dr. Avina on 04/19. Rock was getting ready to leave. He seemed happy and pleasant stating he was "excited" and it felt like his "birthday." He stated it was a "rebirth." Talked about the importance of following through with his appt.'s. Shared that he was not able to go to [facility], but that I set him up with follow up at [facility]. He was fine with that and said that he remembered going there years ago. Encouraged him to take it easy at home and not atkinson into everything that he is looking to get done. Talked about mowing the lawn this weekend when it's a little cooler. Asked how he was feeling on his meds? He mentioned feeling a little whoosy when he takes his second dose of medication. [facility] Encouraged him to speak with the doctor. Also reminded him that he will see the doctor in OPS next week, if there are any continued issues. Talked about needing therapy and group to continue managing his moods. He seemed future oriented during our conversation. Sister is coming to pick him up today.
[2017-04-12] MEDS ORDERED: DIVALPROEX SOD500 M2 PO (11:18)
[2017-04-12] MEDS ORDERED: OLANZAPINE5 M2 PO (11:19)
[2017-04-12] MEDS ORDERED: OLANZAPINE10 M1 PO (11:20)
--- NOTE | 2017-04-12 12:11 | CP SOUTH PROGRESS NOTE PSYCH ---
Psych (Inpt) Progress Note Progress Note Include the following elements, when applicable: Involvement in the active treatment of the patient with behavioral observations of the patient and the patient's response to the treatment. Review of the ongoing treatment process in the context of the treatment plan. Indication of how multi-disciplinary staff members are carrying out the treatment plan. Plans for future interventions and recommendations for revision of the treatment plan. Liaison with other physicians/providers. Progress Note: PSYCHIATRIST NOTE (DISCHARGE), 04/12/2017: I discussed this patient's progress to date, current mental status, treatment and discharge plans with staff team today in the daily morning ITTM and also met with him again myself in individual session prior to discharging him to intake at [facility] on 04/17/2017 at 10:45am; he will also have a medication evaluation appointment with Dana Avina M.D., on 04/19/2017 at 8: 30am. He was also given an appointment card for the [facility] meeting scheduled for 04/25/2017 at 4pm, facilitated by Deidra Cooper LCSW. Patient also plans to keep an appointment in the near future with glacing machine tender, Codey Rain M.D., who has been following him for almost 20 years (for pituitary adenoma and hypothyroidism). Patient is in a good (not elated or irritable) mood/euthymic, bright, smiling, joking, very pleased to be returning home, showing no evidence of suicidal or homicidal ideation, plans, intent or impulses and well aware of his safety plan should he ever in future come to believe he is at acute risk of self-harm or harming others. I have called into the [facility], [place], [place] on day of discharge , 04/12/2017: Zyprexa, 5mg: i tablet daily in AM; #14 with no refill (to clarify thoughts/ stabilize moods) Zyprexa, 10mg: i tablet nightly at HS; #14 with no refill (clarify thoughts/ stabilize moods) (patient is currently prescribed a total of 15mg of Zyprexa daily) Depakote ER, 500mg: ii tabs 2x/day (total of 2,000mg daily); #56 with no refill (stabilize moods) patient was also encouraged to continue utilizing the nicotine patch, 14mg OTC to help reduce cravings for cigarettes/tobacco and given an appointment card for the [facility] scheduled for 04/25/2017 at 4pm, facilitated by Deidra Cooper LCSW patient also has sufficient supplies at home to continue taking: Synthroid, 150mcg daily in AM (thyroid supplement) cabergoline, 0.5mg every Sunday (to lower prolactin levels and control pituitary adenoma growth) Norvasc, 10mg daily Coreg, 25mg 2x/day Ecotrin, 81mg daily (heart health) Vitamin D, 1,000 IU daily
--- NOTE | 2017-04-12 12:13 | DISCHARGE SUMMARY REPORT-PSYCH ---
Visit Information Visit Dates/Diagnosis' Admission Date: 04/04/17 Discharge Date: 04/12/17 Reason for Admission: "I'm ready [to return home]...I'm not depressed...I don't want to go to inpatient psychiatry...I just got overwhelmed because of my bills." Psy Discharge Primary Diag: Unspecified Bipolar Disorder(bipolar spectrum disorder), Mixed; MRE Mixed with irritability and episodic explosive rage/ abusive verbal behavior (impulsive) Psy Discharge Secondary Diag: Stimulant (crack cocaine) Use Disorder, possibly severe and longstanding Nicotine Use Disorder Pituitary Adenoma (which has been followed by Dr. Rain for almost 20 years) Hypothyroidism Hypertension hx of Migraine Hospital Course Significant Lab Findings: BUN = 41, creatinine = 2.1, GFR = 32; albumin = 3.1; triglycerides = 252; total T3 = 0.94; RBC = 3.46, HGB = 10.0, HCT = 29.4, serum iron = 34, SAT = 11.0%; DAYNE = less than 10.0; urine for drugs of abuse--barbiturates (745ng/ml), bezodiazepines (greater than 800.ng/ml), and cocaine (greater than 1,000.ng/ml) (for details of all normal range laboratory data from this admission, see the electron medical record) Course Complications: none Consultations: patient was seen for an admission medical H&P by Rhianna Asencio M.D., and followed medically during this admission by the hospitalist staff/[facility] medical attending staff; he was also seen in endocrine consultation by Daniel Rain M.D., and nephrology consultation by Ambrosio Champion M.D. (for details, see all consultation and progress notes in the electronic medical record) Allergies: Coded Allergies: sulfamethoxazole (From BACTRIM) (Severe, RASH 11/03/16) trimethoprim (From BACTRIM) (Severe, RASH 11/03/16) codeine (Intermediate, VOMITING, FACE NUMBNESS 10/17/16) Hospital Course/TX Response: (see also, all initial/admission assessments and daily M.D./SHINE WORKER and PHOTOENGRAVING PHOTOGRAPHER progress notes for this admission in the electronic medical record) Patient presents in the wake of a very serious, lifethreatening large polydrug overdose which appears to have been precipitated by financial difficulties increasingly contributed to by many years of regular crack cocaine abuse; paradoxically, he does not appear to link his chronic and now dire financial stress with all the income he has spent on cocaine over a very long period ( perhaps 30+ years) of crack abuse/addiction. Patient may have a mild bipolar spectrum disorder superimposed on a basically hyperthymic personality organization and at some point in the past he was apparently on Depakote but there is little information about this and patient's memory on the subject, in fact, on his period of time treated in the [facility] during the early is not very good/helpful. He had been called bipolar by Dr. Holman. Patient explained the diagnosis of intermittent explosive disorder (by Dr. Durbin) as likely stemming from his tendency to periodically "over react" to minor adverse situations/slights with "explosions" of anger, yelling, etc. Apparently, these episodes have never gotten him into a trouble with the legal system. Currently, patient appears at least mildly elated, pressured, inappropriately "bubbly" in affect/mood with a tendency to deny or resist looking very closely at the life- threatening circumstances which eventuated in his current admission to [facility], taking an attitude of almost "belle indifference" to recent events and making no connection between his rather incredibly extensive crack cocaine abuse history and the worsening of his (and his mother's) finances over the years which have essentially sent mother's major possession, her home "up in [crack cocaine] smoke." We need to have a family meeting [facility] and patient's sister should be part of it. We need to try to impress upon patient the seriousness of his cocaine use disorder, both in terms of impoverishing him (and his mother) and making him very much more at risk in terms of his cardiac and mental health conditions and at risk for his very life as incident suicide attempt could very likely have resulted in his had not his mother intervened (he had already lost consciousness soon after the ingestion and barely got the fact of his overdose to his mother's attention before We discharged patient to intake at [facility] on 04/17/2017 at 10:45am; he will also have a medication evaluation appointment with Parish Avina M.D., on 04/19/2017 at 8:30am. He was also given an appointment card for the [facility] meeting scheduled for 04/25/2017 at 4pm, facilitated by Deidra Cooper LCSW. Patient also plans to keep an appointment in the near future with environmental systems coordinator, Daniel Rain M.D., who has been following him for almost 20 years (for pituitary adenoma and hypothyroidism). Discharge HBIPS - Tobacco Use Treatment Offered Post DC Medications Offered: Script Given-See Med List Post DC Tobacco Treatment Plan: [facility] Appt Date: 04/25/17 - EtOH/Drug Use D/O Treatment Offered Post DC Medications Offered: NA-No EtOH/Drug Use D/O Post DC EtOH/SubAbuse TX Plan: NA-No EtOH/Drug Use D/O Metabolic Screening - Screen if on a Neuroleptic Medication - Metabolic screening should include: - Blood Pressure, BMI, Glucose or Hgb A1c, & a - Lipid profile from within the past 365 days. Metabolic Screening () Not Applicable, patient not on a neuroleptic. OR ([x]) Patient on a neuroleptic(s) . Enter below results for Glucose or Hemoglobin A1C, and lipid panel if obtained during the last 365 days. BMI: 49.600 Blood Pressure: 138/70 Laboratory Results (If applicable): [x] glucose = 91 (on 04/12/2017 glycos hgb A1c = 5.7 (on 04/12/2017) cholesterol = 161 (all drawn on 02/12/2017) triglycerides = 252 HDL = 45 LDL = 66 Discharge Instructions General Discharge Information Discharge Medications: I have called into the [facility], [place], [place] on day of discharge , 04/12/2017: Zyprexa, 5mg: i tablet daily in AM; #14 with no refill (to clarify thoughts/ stabilize moods) Zyprexa, 10mg: i tablet nightly at HS; #14 with no refill (clarify thoughts/ stabilize moods) (patient is currently prescribed a total of 15mg of Zyprexa daily) Depakote ER, 500mg: ii tabs 2x/day (total of 2,000mg daily); #56 with no refill (stabilize moods) patient was also encouraged to continue utilizing the nicotine patch, 14mg OTC to help reduce cravings for cigarettes/tobacco and given an appointment card for the [place] [facility] scheduled for 04/25/2017 at 4pm, facilitated by Deidra Cooper LCSW patient also has sufficient supplies at home to continue taking: Synthroid, 150mcg daily in AM (thyroid supplement) cabergoline, 0.5mg every Sunday (to lower prolactin levels and control pituitary adenoma growth) Norvasc, 10mg daily Coreg, 25mg 2x/day Ecotrin, 81mg daily (heart health) Vitamin D, 1,000 IU daily Multiple Neuroleptics: ([X]) Not Applicable OR Document below three failed attempts at monotherapy, or a plan to taper to monotherapy, or augmentation of Clozapine. () Patient's Diet: heart healthy Patient's Activity: without restrictions DC Disposition: to home Recommendations: Following an interval of outpatient stabilization I would recommend attempting a slow taper of Zyprexa. Referred To: Patient was discharged to intake at [facility] on 04/17/2017 at 10:45am; he will also have a medication evaluation appointment with Parish Avina M.D., on 2016 at 8:30am. He was given an appointment card for the [place] [facility] meeting scheduled for 04/25/2017 at 4pm, facilitated by Deidra Cooper LCSW. Patient also plans to keep an appointment in the near future with environmental systems coordinator, Daniel Rain M.D., who has been following him for almost 20 years (for pituitary adenoma and hypothyroidism). Copies To: COLTON PEACOCK,PARISH; WILLY PEACOCK,DANIEL Jones; LORA GREENFIELD,KITTY
== END 2017-04-12 13:36 | DRG 885 ==
LOC: CP SOUTH 13:24 → ENRESERV 23:59 → CP SOUTH 04-06 16:47
PROVIDERS: ADMIT Psychiatry & Neurology Addiction Medicine
DX: F31.9 Bipolar disorder, unspecified (principal); F14.20 Cocaine dependence, uncomplicated; I10 Essential (primary) hypertension; Z72.0 Tobacco use; D35.2 Benign neoplasm of pituitary gland; E03.9 Hypothyroidism, unspecified
CPT/HCPCS: 36415; 82436; J3490; J8515